=== PATIENT | female | born 1975 | race Caucasian/White ===

== ENCOUNTER 2017-04-15 11:33 | Emergency (ER) | payer BC, OTHER ==
[~2017-04-15] VITALS: Ht 162.6 cm; Wt 112.8 kg
[~2017-04-15 11:33] MED LIST: CLR10 PO; MULT-506 PO
[2017-04-15 11:36] VITALS: TEMP 37.4; Ht 162.6 cm; Wt 112.8 kg
--- NOTE | 2017-04-15 12:04 | EMERGENCY ROOM VISIT NOTE ---
History Report prepared by Maureen: Akanksha Munoz Under the Supervision of: Dr. Maryana Lord D.O. First contact with patient: 11:42 Chief Complaint: CARDIAC ASSESSMENT Stated Complaint: NAUSEA, RACING HEART, LIGHTHEADED Nursing Triage Summary: triage note; pt reports since waking nausea, chest pressure and elevated pulse 120 beats/min at home. 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 She notes that she has had chest pressure before, though the discomfort would resolve itself. She currently rates her pain a 2/10 in severity. She reports that she works from home and was working when she suddenly felt lightheaded and she noticed her pulse was over 100 bpm on her smart watch. She notes that she took a few deep breaths and her pulse resumed normal. She states that her pulse then increased to 120 bpm and she became lightheaded again. She notes nausea, sick contacts, abdominal pain, and lightheadedness. She denies any sharp abdominal pain, though mild distention. She notified her PCP and was advised to come to the ED. She has a family history of myocardial infarction. She tried eating a banana, though her abdominal pain did not subside. She notes her son has been sick. She has a history of anxiety and takes Zoloft regularly. She has a history of cholecystectomy. She notes baseline low blood pressure, though her blood pressure was higher than normal today. She notes consuming a whiskey sour , alcoholic drink last night. She notes normal bowel movements. She also states that she has been eating irregularly due to the holidays. She denies a history of GERD. 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 Review of Systems See HPI for pertinent positives & negatives. A total of 10 systems reviewed and were otherwise negative. Past Medical & Surgical Surgical Problems: (1) H/O bilateral breast reduction surgery (2) Hx of cholecystectomy Family History FH: myocardial infarction Social History Smoking Status: Never Smoker Marital Status: Occupation Status: employed Current/Historical Medications Scheduled Loratadine (Claritin), 10 MG PO DAILY Multivitamin (Multivitamin), 1 TAB PO DAILY Allergies Coded Allergies: No Known Allergies (Unverified , 04/15/17) Physical Exam Vital Signs Date Time Temp Pulse Resp B/P (MAP) Pulse Ox O2 Delivery O2 Flow Rate FiO2 04/15/17 15:50 87 16 155/83 99 Room Air 04/15/17 14:42 84 150/96 97 148/81 102 162/84 04/15/17 13:30 87 18 127/78 98 Room Air 04/15/17 12:21 93 04/15/17 11:51 Room Air 04/15/17 11:36 37.4 94 18 128/81 98 Room Air Physical Exam GENERAL: alert, anxious appearing, well nourished, no distress, non-toxic. Obese. EYE EXAM: normal conjunctiva, PERRL and EOM's grossly intact OROPHARYNX: no exudate, no erythema, lips, buccal mucosa, and tongue normal and mucous membranes are moist NECK: supple, no nuchal rigidity, no adenopathy, non-tender LUNGS: Clear to auscultation. Normal chest wall mechanics HEART: no murmurs, S1 normal and S2 normal CHEST. No reproducible chest pain. ABDOMEN: abdomen soft, non-tender, normo-active bowel sounds, no masses, no rebound or guarding. BACK: Back is symmetrical on inspection and there is no deformity, no midline tenderness, no CVA tenderness. SKIN: no rashes and no bruising UPPER EXTREMITIES: upper extremities are grossly normal. LOWER EXTREMITIES: No pitting edema. NEURO EXAM: Normal sensorium, cranial nerves II-XII grossly intact, normal speech, no gross weakness of arms, no gross weakness of legs. Medical Decision & Procedures ER Provider Diagnostic Interpretation: Radiology results have been interpreted by the radiologist and reviewed by me. CHEST ONE VIEW PORTABLE HISTORY: 42 years-old Female chest pain acute atypical chest pain with nausea COMPARISON: None available TECHNIQUE: Portable AP view of the chest FINDINGS: Cardiomediastinal and hilar silhouettes are within normal limits. No pneumothorax, pleural effusion, focal airspace consolidation or overt pulmonary edema. The bones of the chest appear grossly intact. IMPRESSION: No acute process. The above report was generated using voice recognition software. It may contain grammatical, syntax or spelling errors. Electronically signed by: Domenico Hernandez M.D. 04/15/2017 12:42 PM Dictated Date/Time: 04/15/2017 12:42 PM Laboratory Results 04/15/17 12:18 Red Blood Count 4.50, Mean Corpuscular Volume 87.3, Mean Corpuscular Hemoglobin 29.8, Mean Corpuscular Hemoglobin Concent 34.1, Mean Platelet Volume 10.0, Neutrophils (%) (Auto) 78.9, Lymphocytes (%) (Auto) 11.8, Monocytes (%) (Auto) 7.9, Eosinophils (%) (Auto) 1.1, Basophils (%) (Auto) 0.2, Neutrophils # (Auto) 7.75, Lymphocytes # (Auto) 1.16, Monocytes # (Auto) 0.78, Eosinophils # (Auto) 0.11, Basophils # (Auto) 0.02 04/15/17 12:18 Test 04/15/17 12:18 04/15/17 15:09 White Blood Count 9.83 K/uL (4.8-10.8) Red Blood Count 4.50 M/uL (4.2-5.4) Hemoglobin 13.4 g/dL (12.0-16.0) Hematocrit 39.3 % (37-47) Mean Corpuscular Volume 87.3 fL (80-100) Mean Corpuscular Hemoglobin 29.8 pg (25-34) Mean Corpuscular Hemoglobin Concent 34.1 g/dl (32-36) Platelet Count 276 K/uL (130-400) Mean Platelet Volume 10.0 fL (7.4-10.4) Neutrophils (%) (Auto) 78.9 % Lymphocytes (%) (Auto) 11.8 % Monocytes (%) (Auto) 7.9 % Eosinophils (%) (Auto) 1.1 % Basophils (%) (Auto) 0.2 % Neutrophils # (Auto) 7.75 K/uL (1.4-6.5) Lymphocytes # (Auto) 1.16 K/uL (1.2-3.4) Monocytes # (Auto) 0.78 K/uL (0.11-0.59) Eosinophils # (Auto) 0.11 K/uL (0-0.5) Basophils # (Auto) 0.02 K/uL (0-0.2) RDW Standard Deviation 43.2 fL (36.4-46.3) RDW Coefficient of Variation 13.6 % (11.5-14.5) Immature Granulocyte % (Auto) 0.1 % Immature Granulocyte # (Auto) 0.01 K/uL (0.00-0.02) Anion Gap 8.0 mmol/L (3-11) Est Creatinine Clear Calc Drug Dose 122.3 ml/min Estimated GFR () 116.9 Estimated GFR (Non- 100.9 BUN/Creatinine Ratio 17.2 (10-20) Calcium Level 8.7 mg/dl (8.5-10.1) Magnesium Level 2.1 mg/dl (1.8-2.4) Total Bilirubin 0.4 mg/dl (0.2-1) Aspartate Amino Transf (AST/SGOT) 18 U/L (15-37) Alanine Aminotransferase (ALT/SGPT) 24 U/L (12-78) Alkaline Phosphatase 94 U/L (45-117) Troponin I < 0.015 ng/ml (0-0.045) Total Protein 8.0 gm/dl (6.4-8.2) Albumin 3.5 gm/dl (3.4-5.0) Globulin 4.5 gm/dl (2.5-4.0) Albumin/Globulin Ratio 0.8 (0.9-2) Lipase 140 U/L (73-393) Bedside Troponin I < 0.030 ng/ml (0-0.045) Laboratory results per my review. Medications Administered Medications (Trade) Dose Ordered Sig/[place] Route Start Time Stop Time Status Last Admin Dose Admin Ondansetron HCl (Zofran Odt) 4 mg ONE ONCE PO 04/15/17 14:45 04/15/17 14:46 DC 04/15/17 14:41 4 MG ECG Indication: other (chest pressure) Rate (beats per minute): 100 Rhythm: sinus tachycardia Findings: no acute ischemic change, other (Normal axis, normal intervals. Baseline artifact noted. ) ED Course 1155: The patient was evaluated in room C7. A complete history and physical exam was performed. 1340: I reassessed the patient at this time. She is still nauseous. 1445: Ordered Zofran 4 mg PO 1500: I reassessed the patient at this time. She tolerated the PO and is feeling better and resting comfortably. 1526: I reassessed the patient at this time. She is feeling better and resting comfortably. I discussed the results and treatment plan with the patient. I answered all pertaining questions that she had. She expressed understanding and verbalized agreement. The patient will be discharged home. Medical Decision Prior records/ancillary studies reviewed. Triage Nursing notes reviewed. The patient's history was concerning for chest pain. Differential diagnosis: Etiologies such as cardiac ischemia, aortic dissection, pulmonary embolism, pneumonia, pneumothorax, musculoskeletal, infections, pericarditis, myocarditis , esophageal rupture, gastrointestinal, as well as others were entertained. HEART score 0 low risk Wells, PERC negative Pt well appearing here, very anxious. No risk factors for CAD, fam hx but not first degree relative. Doubt ACS, tamponade, effusion, PE, occult infectious etiology, pneumothorax, dissection or other vascular etiology. Patient's labs and imaging reassuring, vital signs stable, patient improved here during observation time and nausea medication. Patient tolerating by mouth, no recurrent lightheadedness with ambulation back and forth to the bathroom several times, orthostatics negative. Discussed with patient close follow-up with family doctor as a precaution, symptoms watch and return for, she verbalized understanding was agreeable with plan. Medication Reconcilliation Current Medication List: was personally reviewed by me Blood Pressure Screening Patient's blood pressure: Elevated blood pressure Blood pressure disposition: Elevated BP felt to be situational Impression Primary Impression: Chest pain Additional Impression: Nausea Scribe Attestation The scribe's documentation has been prepared under my direction and personally reviewed by me in its entirety. I confirm that the note above accurately reflects all work, treatment, procedures, and medical decision making performed by me. Departure Information Dispostion Home / Self-Care Referrals Fortino Plunektt M.D. (PCP) Forms IMPORTANT VISIT INFORMATION Patient Instructions Chest Pain - [facility], [facility] Additional Instructions Please follow up with your family doctor as a precaution. If you have any new or concerning symptoms, recurrent chest pain, trouble breathing, fevers, dizziness, passing out, you've any other new concerns, please return the emergency room. Problem Qualifiers Primary Impression: Chest pain Chest pain type: unspecified Qualified Codes: R07.9 - Chest pain, unspecified
[2017-04-15 12:38] LABS: BASO % 0.2 %; BASO ABS # 0.02 K/uL (0-0.2); COMPLETE YES; EOS % 1.1 %; HEMATOCRIT 39.3 % (37-47); IG% 0.1 %; LYMPH % 11.8 %; LYMPH ABS # 1.16 K/uL (1.2-3.4); MEAN CELL VOLUME 87.3 fL (80-100); MEAN CORPUSCULAR HEMOGLOBIN 29.8 pg (25-34); MEAN CORPUSCULAR HGB CONC 34.1 g/dl (32-36); MONO % 7.9 %; NEUT % 78.9 %; PLATELET COUNT 276 K/uL (130-400); WHITE BLOOD COUNT 9.83 K/uL (4.8-10.8)
--- NOTE | 2017-04-15 12:43 | DIAGNOSTIC IMAGING REPORT ---
CHEST ONE VIEW PORTABLE HISTORY: 42 years-old Female chest pain acute atypical chest pain with nausea COMPARISON: None available TECHNIQUE: Portable AP view of the chest FINDINGS: Cardiomediastinal and hilar silhouettes are within normal limits. No pneumothorax, pleural effusion, focal airspace consolidation or overt pulmonary edema. The bones of the chest appear grossly intact. IMPRESSION: No acute process. The above report was generated using voice recognition software. It may contain grammatical, syntax or spelling errors. Electronically signed by: Domenico Hernandez M.D. 04/15/2017 12:42 PM Dictated Date/Time: 04/15/2017 12:42 PM
[2017-04-15 12:58] LABS: ALT/SGPT 24 U/L (12-78); AST/SGOT 18 U/L (15-37); BLOOD UREA NITROGEN 13 mg/dl (7-18); BUN/CREATININE RATIO 17.2 (10-20); CALCIUM 8.7 mg/dl (8.5-10.1); CARBON DIOXIDE 22 mmol/L (21-32); CHLORIDE 104 mmol/L (98-107); CREATININE 0.73 mg/dl (0.60-1.20); GLUCOSE 103 mg/dl (70-99); MAGNESIUM 2.1 mg/dl (1.8-2.4); POTASSIUM 3.7 mmol/L (3.5-5.1); SODIUM 134 mmol/L (136-145)
[2017-04-15 13:03] LABS: ALB/GLOB RATIO 0.8 (0.9-2); ALKALINE PHOSPHATASE 94 U/L (45-117)
[2017-04-15] MEDS ORDERED: ONDANSETRON 4MG OD TAB PO ONE (14:45)
[2017-04-15 15:50] VITALS: BP 155/83; PULSE 87; O2SAT 99
== END 2017-04-15 15:54 | disposition home or self-care (01) ==
LOC: C.EDB 11:33 → C.EDC 15:54
DX: R07.9 Chest pain, unspecified (principal); R11.0 Nausea; F41.9 Anxiety disorder, unspecified; Z82.49 Family history of ischemic heart disease and other diseases of the circulatory system

== ENCOUNTER 2023-09-04 18:10 | Inpatient (IN) ==
--- OUTSIDE RECORDS SUMMARY | 2023-09-04 18:16 | External Medical Summary | Summary of Care ---
Author Name Unknown Organization [facility] Address [address] [place] [address] Phone [phone] Care Team Providers Care Exit Booth Agent Name Role Phone Fortino Plunkett MD Primary Care Provider + Reason for Visit * Reason Onset Date Comments Other 08/23/2023 Lab results Encounter Details Date Type Department Care Team (Late st Contact Info) Description 08/23/2023 Telephone [facility] [address] [place] [address] Humberto Pan MD [address] [place] [address] Other (Lab results ) Allergies Active Allergy Reactions Criticality Noted Date Comments Cat Dander Edema airway High 10/24/2012 Dog Dander Edema airway High 10/24/2012 Dust 10/24/2012 Nasal congestion Molds & Smuts 10/24/2012 Nasal congestion Pollen Extract 01/11/2022 Stuffy nose documented as of this encounter (statuses as of 08/23/2023) Medications Medication Sig Dispensed Refills Start Date End Date Status ibuprofen (MOTRIN) 200 MG Tablet Take 1 Tablet by mouth every 4 hours as needed for Pain. 0 Active albuterol-ipratropium (DUONEB) 2.5-0.5 MG/3ML nebulizer solutionIndications:M ild intermittent asthma without complication Inhale 3 mL via nebulizer 4 times a day. 25 Vial 0 05/04/2017 Active metroNIDAZOLE 1 % External Gel (METROGEL)Indications :Rosacea Apply topically to affected area 2 times a day. To affected area. 60 g 11 02/01/2020 Active Levocetirizine Dihydrochloride 5 MG Oral Tablet Take 1 tablet daily each evening to prevent allergy related symptoms 0 05/07/2021 Active Additional Information Patient taking differently: 5 mg Oral QPM-1999, Take 1 tablet daily each evening to prevent allergy related symptoms, Reported on 06/11/2022 Albuterol Sulfate HFA 108 (90 Base) MCG/ACT Inhalation Aerosol Solution Inhale 2 Puffs by mouth every 4 hours as needed for Cough, Shortness of Breath or Wheezing. 8.5 g 3 06/11/2022 Active Clindamycin Phosphate 1 % External GelIndications:Follic ulitis,Furunculosis Apply twice daily to areas in groin creases as per instructions on checkout sheet 60 g 2 08/23/2022 Active Doxycycline Monohydrate 100 MG Oral CapsuleIndications:Fo lliculitis,Furunculos is Take 1 capsule by mouth daily with or without food 60 Capsule 3 10/20/2022 Active Gabapentin 100 MG Oral Capsule (Neurontin) take 1 capsule by mouth at bedtime for 3 nights, if no relief for menopausal symptoms, may increase to 2 at bedtime 60 Capsule 11 12/22/2022 Active Multivitamin/Extra Vitamin D3 Oral Tablet Chewable Take 1 Tablet by mouth daily. 0 10/15/2022 Active Vitamin B-12 1000 MCG Oral Tablet (Cyanocobalamin) Take 1 Tablet by mouth in the morning. Please purchase without a prescription and take one daily. 100 Tablet 3 10/15/2022 Active Fluticasone-Salmetero l 500-50 MCG/ACT Inhalation Aerosol Powder Breath Activated (Advair Diskus)Indications:Se nely persistent asthma without complication INHALE ONE PUFF BY MOUTH TWICE A DAY 60 Each 5 02/01/2023 4 Active Montelukast Sodium 10 MG Oral Tablet (Singulair)Indication s:Mild intermittent asthma without complication,Allergic rhinitis due to animal hair and dander TAKE 1 TABLET BY MOUTH AT BEDTIME. 90 Tablet 3 02/23/2023 4 Active Esomeprazole Magnesium 20 MG Oral Capsule Delayed Release (NexIUM 24HR Clear Minis) Take 1 Capsule by mouth daily before breakfast. 0 Active Wegovy 0.25 MG/0.5ML Subcutaneous Solution Auto-injector (Semaglutide-Weight Management)Indication s:Morbid obesity due to excess calories (HCC) Inject 0.25 mg under the skin once a week. 2 mL 0 03/28/2023 Active Additional Information Patient not taking.Reported on 08/08/2023 Zepbound 2.5 MG/0.5ML Subcutaneous Solution Auto-injector (Tirzepatide-Weight Management)Indication s:Morbid obesity due to excess calories (HCC) Inject 2.5 mg under the skin once a week. 2 mL 1 04/21/2023 Active Additional Information Patient not taking.Reported on 08/08/2023 Spiriva Respimat 2.5 MCG/ACT Inhalation Aerosol Solution (Tiotropium [place] Monohydrate) Inhale by mouth 2 Puffs in the morning. 12 g 3 05/04/2023 Active Amoxicillin-Pot Clavulanate 875-125 MG Oral Tablet (Augmentin)Indication s:Acute sinusitis, recurrence not specified, unspecified location Take 1 Tablet by mouth in the morning and 1 Tablet before bedtime. Do all this for 10 days. 20 Tablet 0 08/20/2023 4 Active predniSONE 10 MG Oral Tablet (Deltasone)Indication s:Acute sinusitis, recurrence not specified, unspecified location Take 5 tabs for 2 days, 4 tabs for 2 days, 3 tabs for 2 days, 2 tabs for 2 days 1 tab for 2 days 30 Tablet 0 08/20/2023 Active Vitamin D 50 MCG (2000 UT) Oral Tablet Take 1 daily in addition to multivitamin for a total daily dose of 3000 units per day 100 Tablet 11 08/23/2023 Active documented as of this encounter (statuses as of 08/23/2023) Active Problems Problem Noted Date Diagnosed Date Left-sided chest pain 12/09/2022 Skin pustule 06/11/2022 BRAD (generalized anxiety disorder) 03/11/2022 Perimenopausal 09/08/2021 Night sweats 09/08/2021 Laryngopharyngeal reflux (LPR) 05/08/2021 Severe persistent asthma without complication Food sensitivity with gastrointestinal symptoms 04/28/2021 Papular eczema 04/28/2021 Body mass index (BMI) of 40.0 to 44.9 in adult 0 09/02/2020 Overview: Per Obesity protocol OAB (overactive bladder) 01/29/2018 Morbid obesity due to excess calories 01/29/2018 DIEGO (stress urinary incontinence, female) 2017 Obesity, Class II, BMI 35-39.9, isolated (see ac tual BMI) 01/24/2017 Overview: Per Obesity protocol #1 PMDD (premenstrual dysphoric disorder) 6 Family history of breast cancer in mother 2012 Routine general medical exam ination at a health care facility 12/03/2011 Overview: 09/07 breast consult: consider tamoxifen, screen w/MRI + mammo 08/08 breast bx- benign. Planning breast reduction NEED morteza 6mo. Genetic screen Negative. 03/06 mammo no change. Morteza 1 Y 09/03 mammo in [place]--likely benign w/minor asym & few calc. US slight dilated ducts on left. Hx galactorrhea. Considering reduction mammoplasty Hx abnormal paps. Last couple WNL 08/04 TC 222, LDL 153, TG 155, HDL 42. CRP1, TSH WNL Gluc 80, Celiac and Vit D WNL Allergic rhinitis 12/03/2011 Liver hemangioma S/P cholecystectomy S/P bilateral breast reduction documented as of this encounter (statuses as of 08/23/2023) Resolved Problems Problem Noted Date Diagnosed Date Resolved Date Situational anxiety 06/09/2021 12/10/19 23 Mild persistent asthma without complication 05/08/2021 06/09/2021 Hypersomnia, periodic 01/26/20182017 Screening for lipid disorders 01/20/2018 12/09/2022 Urinary frequency 11/25/2017 04/03/2018 Urge incontinence of urine 11/11/2017 1 06/04/2017 Feeling of incomplete bladder emptying 11/11/2017 04/03/2018 Obesity, Class II, BMI 35-39 .9, isolated (see actual BMI) 12/03/2011 01/27/2017 Overview: Per Obesity protocol #1 Vitamin D deficiency 12/03/2011 018 Mild intermittent asthma without complication 12/03/19 12 03/26/2021 Overview: 04/07 PFT WNL. Reports having PCV23 documented as of this encounter (statuses as of 08/23/2023) Immunizations Name Administration Dates Next Due COVID-19 mRNA, LNP-s, No Pre serve, 2-Dose Series (Moderna) 07/08/2020,06/10/2020 COVID-19, mRNA, LNP-s, PF, B ooster, 100mcg/0.5mg (Moderna) 04/07/2021 Covid-19, Mrna, Lnp-s, Pf, B ivalent, 30 Mcg, IM, 12 yrs and above (Pfizer) 06/08/2022 Pneumococcal Polysaccharide PPV23 (Pneumovax) 08/23/2014 Seasonal Influenza, PF, 6 M & above, IM , (FluLaval or Fluzone) 2023,03/11/2022,02/03/2021,01/31,01/29/2019,02/13/2018 Seasonal Influenza, Quadriva lent, No Preserve, IM 01/10/2017,04/01/2016 Seasonal Influenza, Split, I IV3, With Preserve, Inj 01/28/2014 TDAP (age 10 and older)(Boostrix) 08/06/2013 documented as of this encounter Social History Tobacco Use Types Packs/Day Years Used Date Smoking Tobacco: Never Smokeless Tobacco: Never Comments:No passive smoke ex posures Alcohol Use Standard Drinks/Week Comments Yes 0 (1 standard drink = 0.6 oz pur e alcohol) occasional PHQ-2 Answer Date Recorded PHQ Adult Total Score 0 02/15/2023 Hunger Vital Sign Answer Date Recorded Within the past 12 months, y ou worried that your food would run out before you got the money to buy more. Never true 12/09/19 23 Within the past 12 months, t he food you bought just didn't last and you didn't have money to get more. Never true 12/08/2022 Sex and Gender Information Value Date Recorded Sex Assigned at Female 08/21/2018 11:39 AM EDT Gender Identity Female 08/21/2018 11:39 AM EDT Sexual Orientation Straight 08/21/2018 11 :39 AM EDT Job Start Date Occupation Industry Not on file Not on file Not on file documented as of this encounter Miscellaneous Notes * Telephone Encounter - Humberto Pan MD - 08/23/2023 12:59 PM EDT Please call pt - the blood counts all look good. The EBV IgG antibody was positive - this indicatesthat she has had EBV in the past (but could have been years ago). The IgM antibody - which will help determine if her current symptoms relate to EBV is pending. I will be in touch with this result when it returns. No changes for now.. * Telephone Encounter - Rosita Barker OSA - 08/23/2023 10:57 AM EDT Patient calling in to check on the status of previous message. Patient Called within 48 hour timeframe. Reminded patient of 48 hour turn-around time. States she can see a positive result, asking for assistance. 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 [address] [place] [id number] Lita Borges PA-C [address] [place] [id number] 01/02/2024 8:30 AM EDT Telemedicine [facility] [place] [address] [place] [address] April Marinelli PA-C [address] [place] [address] Pending Results Name Type Priority Associated Diagnoses Date /Time EBV VIRAL CAPSID ANTIGEN IGM ANTIBODY Lab Routine Malaise and fatigue 08/22/2023 11:56 AM EDT Scheduled Orders Name Type Priority Associated Diagnoses Orde r Schedule EBV VIRAL CAPSID ANTIGEN IGM ANTIBODY Lab Routine Malaise and fatigue Expected: 08/23/2023 (Approximate), Expires: 08/22/2024 Scheduled Procedures Name Priority Associated Diagnoses Date/Ti me COLONOSCOPY FLEXIBLE PROXIMAL DIAGNOSTIC Recall Screen for colon cancer Health Maintenance Due Date Last Done Comments Hepatitis C Screening 1992 Hepatitis B (1 of 3 - 19+ 3-dose series) 1993 Pneumococcal Vaccine: Pediatrics (0 to 5 Years) and At-Risk Patients (6 to 64 Years) (2 of 2 - PCV) 08/24/2015 08/23/2014 Cologuard 2019 Fecal Occult Blood Test 2019 Sigmoidoscopy 2019 COVID-19 Vaccine ( season) 2022 06/08/2022, 04/07/2021, 07/08/2020, Additional history exists DTaP,Tdap,and Td Vaccines (2 - Td or Tdap) 08/07/2023 08/06/2013 Mammogram 03/25/2024 03/25/2023, 02/23, 03/02/2022, Additional history exists Diabetes Screening 10/14/2025 10/14/2022, 0 10/14/2022, 09/11/2021, Additional history exists Pap Smear 02/15/2026 02/15/2023, 10/2018, 01/29/2019, Additional history exists Lipid Panel 09/11/2026 09/11/2021, 12/2019, 07/13/2014 Cervical Cancer Screening 02/16/2028 HPV/Co-Test 02/16/2028 02/15/2023 Colonoscopy 01/15/2032 01/14/2022, 01/14/2022 Colorectal Cancer Screening 01/15/2032 Influenza Vaccine (FLU shot) Completed 03/2023, 03/11/2022, 02/03/2021, Additional history exists GARDASIL-HPV IMMUNIZATION SERIES Aged Out No longer eligible based on patient's age to complete this topic MENINGOCOCCAL (MENACTRA/MENVEO) Aged Out No longer eligible based on patient's age to complete this topic documented as of this encounter Medical Devices Not on filedocumented as of this encounter Visit Diagnoses Diagnosis Malaise and fatigue- Primary Other malaise and fatigue documented in this encounter Advance Directives Latest Code Status on File Code Status Date Activated Date Inactivated Comments Full Code 01/06/2016 2:38 PM 01/07/2016 1:40 PM This order reflects the patients wishes and were consensually agreed upon. Question Answer Comments Discussion of Advance Directives occurred with: Not Discussed Care Teams Exit Booth Agent Relationship Specialty Start Date End Date Fortino Plunkett MD [address] [id number] PCP - General Family Medicine 04/17/14 documented as of this encounter
--- OUTSIDE RECORDS SUMMARY | 2023-09-04 18:16 | External Medical Summary | Summary of Care ---
Author Name Unknown Organization [facility] Address [address] [place] [address] Phone [phone] Care Team Providers Care Radar Scientist Name Role Phone Fortino Plunkett MD Primary Care Provider + Reason for Visit * Reason Onset Date Comments Other 08/23/2023 Lab results Encounter Details Date Type Department Care Team (Late st Contact Info) Description 08/23/2023 Telephone [facility] [address] [place] [address] Humberto Pan MD [address] [place] [address] Other (Lab results ) Allergies Active Allergy Reactions Criticality Noted Date Comments Cat Dander Edema airway High 10/24/2012 Dog Dander Edema airway High 10/24/2012 Dust 10/24/2012 Nasal congestion Molds & Smuts 10/24/2012 Nasal congestion Pollen Extract 01/11/2022 Stuffy nose documented as of this encounter (statuses as of 08/24/2023) Medications Medication Sig Dispensed Refills Start Date [...] Respimat 2.5 MCG/ACT Inhalation Aerosol Solution (Tiotropium [place] Monohydrate) Inhale by mouth 2 Puffs in [...] as of this encounter (statuses as of 08/24/2023) Active Problems Problem Noted Date Diagnosed Date [...] as of this encounter (statuses as of 08/24/2023) Resolved Problems Problem Noted Date Diagnosed Date [...] as of this encounter (statuses as of 08/24/2023) Immunizations Name Administration Dates Next Due COVID-19 [...] results - please call pt back at [phone] Thank you, Nicole Layne CPhT II Pipe Testing Technician [facility] ([facility]PS) (Formerly Telepharmacy) 08/23/2023, 10:09 AM documented in this encounter Plan of Treatment Upcoming Encounters Date Type Department Care Team (Late st Contact Info) Description 09/14/2023 11:00 AM EDT Office Visit Nutrition & Weight Management, [facility] [address] [place] [address] Lita Borges PA-C [address] [place] [address] 01/02/2024 8:30 AM EDT Telemedicine [facility], [place] [address] [place] [address] April Marinelli PA-C [address] [place] [address] Scheduled Procedures Name Priority Associated Diagnoses Date/Ti [...] Additional history exists Lipid Panel 09/11/2026 09/11/2021, 100 12/2019, 07/13/2014 Cervical Cancer Screening 02/16/2028 HPV/Co-Test [...] Not on filedocumented as of this encounter Results * EBV VIRAL CAPSID ANTIGEN IGM ANTIBODY (08/22/2023 11:56 AM EDT) Tod-Chow Virus Viral Capsid IgM Antibody Negative Negative 08/24/2023 9:07 AM EDT LABORATORY [facility] Blood Venous blood specimen / Unknown Venipuncture / Unknown 08/22/2023 11:56 AM EDT 08/22/2023 11:56 AM EDT Humberto Pan MD LAB BLOOD ORDERABL ES LABORATORY [facility] [address] [place] [facility] [place] [address] documented in this encounter Visit Diagnoses Diagnosis Malaise and fatigue- Primary Other malaise and fatigue documented in this encounter Advance Directives Latest Code Status on File Code Status Date Activated Date Inactivated Comments Full Code 01/06/2016 2:38 PM 01/07/2016 1:40 PM This order reflects the patients wishes and were consensually agreed upon. Question Answer Comments Discussion of Advance Directives occurred with: Not Discussed Care Teams Radar Scientist Relationship Specialty Start Date End Date Fortino Plunkett MD [address] [address] PCP - General Family Medicine 04/17/14 documented as of this encounter
--- OUTSIDE RECORDS SUMMARY | 2023-09-04 18:16 | External Medical Summary | Summary of Care ---
Author Name Unknown Organization [facility] Address [address] [place] [address] Phone [phone] Care Team Providers Care Advertising Representative Name Role Phone Fortino Plunkett MD Primary Care Provider + Reason for Visit * Reason Onset Date Comments Other 08/23/2023 Lab results Encounter Details Date Type Department Care Team (Late st Contact Info) Description 08/23/2023 Telephone [facility] [address] [place] [address] Humberto Pan MD [address] [place] [address] Other (Lab results ) Allergies [...] Respimat 2.5 MCG/ACT Inhalation Aerosol Solution (Tiotropium [place] Monohydrate) Inhale by mouth 2 Puffs in [...] results - please call pt back at [phone] Thank you, Nicole Layne CPhT II Polo Coach [facility] ([facility]PS) (Formerly Telepharmacy) 08/23/2023, 10:09 AM documented in this encounter Plan of Treatment Upcoming Encounters Date Type Department Care Team (Late st Contact Info) Description 09/14/2023 11:00 AM EDT Office Visit Nutrition & Weight Management, [facility] [address] [place] [address] Lita Borges PA-C [address] [place] [phone] 01/02/2024 8:30 AM EDT Telemedicine [facility], [place] [address] [place] [address] April Marinelli PA-C [address] [place] [address] Scheduled Procedures Name Priority Associated Diagnoses Date/Ti [...] LABORATORY [facility] [address] [place] [facility] [address] documented in this encounter Visit Diagnoses Diagnosis [...] Directives occurred with: Not Discussed Care Teams Advertising Representative Relationship Specialty Start Date End Date Fortino Plunkett MD [address] [address] PCP - General Family Medicine 04/17/14 documented as of this encounter
--- OUTSIDE RECORDS SUMMARY | 2023-09-04 18:16 | External Medical Summary | Summary of Care ---
Author Name Unknown Organization [facility] Address [address] [place] [address] Phone [phone] Care Team Providers Care Blueprint Machine Operator Name Role Phone Fortino Plunkett MD Primary Care Provider + Reason for Visit * Reason Onset Date Comments Other 08/23/2023 Encounter Details Date Type Department Care Team (Late st Contact Info) Description 08/23/2023 Telephone Family Practice [facility] [address] [place] [address] Fortino Plunkett MD [address] [facility] [place] [phone] Other Allergies Active Allergy Reactions Criticality Noted Date [...] by mouth daily. 0 10/15/2022 Active Vitamin D (Cholecalciferol) 25 MCG (1000 UT) Oral Tablet Take 1 Tablet by mouth in the morning. With multivit with vit D for total daily dose of 2000 units vit D per day. 100 Tablet 11 12/22/2022 Active Vitamin B-12 1000 MCG Oral Tablet [...] Respimat 2.5 MCG/ACT Inhalation Aerosol Solution (Tiotropium [place] Monohydrate) Inhale by mouth 2 Puffs in [...] 2 days 30 Tablet 0 08/20/2023 Active documented as of this encounter (statuses [...] encounter Miscellaneous Notes * Telephone Encounter - Nicole Layne CPhT - 08/23/2023 9:59 AM EDT Error Thank you, Nicole Layne CPhT II Conference Reservationist [facility] ([facility]PS) (Formerly Telepharmacy) 08/23/2023, 10:08 AM documented in this encounter Plan of Treatment Upcoming Encounters Date Type Department Care Team (Late st Contact Info) Description 09/14/2023 11:00 AM EDT Office Visit Nutrition & Weight Management, [facility] [place] [address] Lita Borges PA-C [address] [facility] [place] [address] 01/02/2024 8:30 AM EDT Telemedicine Endocrinology, [place] [address], [place] [phone] April Marinelli PA-C [address], [place] [phone] Scheduled Procedures Name Priority Associated Diagnoses Date/Ti [...] Additional history exists Pap Smear 02/15/2026 02/15/2023, 100 10/2018, 01/29/2019, Additional history exists Lipid Panel 09/11/2026 09/11/2021, 10/0 12/2019, 07/13/2014 Cervical Cancer Screening 02/16/2028 HPV/Co-Test [...] Not on filedocumented as of this encounter Advance Directives Latest Code Status on File Code Status Date Activated Date Inactivated Comments Full Code 01/06/2016 2:38 PM 01/07/2016 1:40 PM This order reflects the patients wishes and were consensually agreed upon. Question Answer Comments Discussion of Advance Directives occurred with: Not Discussed Care Teams Blueprint Machine Operator Relationship Specialty Start Date End Date Fortino Plunkett MD [address] [place] [address] PCP - General Family Medicine 04/17/14 documented as of this encounter
--- OUTSIDE RECORDS SUMMARY | 2023-09-04 18:16 | External Medical Summary | Summary of Care ---
Author Name Unknown Organization [facility] Address [address] [place] [address] Phone [phone] Care Team Providers Care Daytime Babysitter Name Role Phone Fortino Plunkett MD Primary Care Provider + Reason for Visit * Reason Comments Outpatient Testing Encounter Details Date Type Department Care Team (Late st Contact Info) Description 08/22/2023 12:20 PM EDT Laboratory Laboratory, [facility] [address] [facility] [place] [phone] [facility] [address] [facility] [place] [address] Vitamin D deficiency; Malaise and fatigue Allergies Active Allergy Reactions Criticality Noted Date [...] Information Patient taking differently: 5 mg Oral QPM-2000, Take 1 tablet daily each evening to [...] TWICE A DAY 60 Each 5 02/01/2023 10/09/202 4 Active Montelukast Sodium 10 MG Oral [...] Respimat 2.5 MCG/ACT Inhalation Aerosol Solution (Tiotropium [place] Monohydrate) Inhale by mouth 2 Puffs in [...] change. Morteza 1 Y 09/03 mammo in [place]--likely benign w/minor asym & few calc. US [...] as of this encounter Miscellaneous Notes * Result Encounter Note - April Marinelli PA-C - 08/23/2023 10:33 AM EDT Pt notified via phone or WebKitet message encounter. Trinity Marinelli PA-C [facility] documented in this encounter Plan of Treatment Upcoming Encounters Date Type Department Care Team (Late st Contact Info) Description 09/14/2023 11:00 AM EDT Office Visit Nutrition & Weight Management, [facility] [address] [facility] [place] [address] Lita Borges PA-C [address] [place] [address] 01/02/2024 8:30 AM EDT Telemedicine Endocrinology, [place] [address] [place] [address] April Marinelli PA-C [address] [place] [address] Scheduled Procedures Name Priority Associated Diagnoses Date/Ti [...] Additional history exists Pap Smear 02/15/2026 02/15/2023, 0 10/2018, 01/29/2019, Additional history exists Lipid Panel [...] Not on filedocumented as of this encounter Procedures Procedure Name Priority Date/Time Associated Diagnosis Comments DIFFERENTIAL, AUTOMATED Routine 08/22/2023 11:56 AM EDT Malaise and fatigue 25-HYDROXY VITAMIN D Routine 08/22/2023 11:56 AM EDT Vitamin D deficiency EBV VIRAL CAPSID ANTIGEN IGG ANTIBODY Routine 08/22/2023 11:56 AM EDT Malaise and fatigue CBC Routine 08/22/2023 11:56 AM EDT Malaise and fatigue CBC Routine 08/22/2023 11:56 AM EDT Malaise and fatigue documented in this encounter Results * DIFFERENTIAL, AUTOMATED (08/22/2023 11:56 AM EDT) WBC 10.58 4.00 - 10.80 K/uL 08/22/2023 12:10 PM EDT LAB[facility] [place] [facility]10 Neutrophils % 60.9 40.0 - 75.0 % 08/22/2023 12:10 PM EDT LAB[facility] [place] [facility]10 Lymphocytes % 28.8 18.0 - 42.0 % 08/22/2023 12:10 PM EDT LAB[facility] [place] [facility] Monocytes % 8.1 1.0 - 11.0 % 08/22/2023 12:10 PM EDT [facility] [place] [facility]10 Eosinophils % 1.9 0.0 - 6.0 % 08/22/2023 12:10 PM EDT LAB[facility] [place] [facility]10 Basophils % 0.3 0.0 - 2.0 % 08/22/2023 12:10 PM EDT LAB[facility] [place] [facility]10 Absolute Neutrophils 6.44 1.80 - 7.70 K/uL 08/22/2023 12:10 PM EDT [facility] [place] [facility]10 Absolute Lymphocytes 3.05 1.00 - 4.80 K/ul 08/22/2023 12:10 PM EDT LAB[facility] [place] [facility] Absolute Monocytes 0.86 0.00 - 1.10 K/uL 08/22/2023 12:10 PM EDT [facility] [place] [facility]10 Absolute Eosinophils 0.20 0.00 - 0.70 K/uL 08/22/2023 12:10 PM EDT [facility] [place] [facility] Absolute Basophils 0.03 0.00 - 0.20 K/uL 08/22/2023 12:10 PM EDT [facility] [place] [facility]10 Blood Venous blood specimen / Unknown Venipuncture / Unknown 08/22/2023 11:56 AM EDT 08/22/2023 11:56 AM EDT Humberto Pan MD LAB BLOOD ORDERABL ES LAB[facility] [place] [facility] [address] [place] [address] * CBC (08/22/2023 11:56 AM EDT) WBC 10.58 4.00 - 10.80 K/uL 08/22/2023 12:10 PM EDT LAB[facility] [place] [facility]10 RBC 4.67 3.85 - 5.15 M/uL 08/22/2023 12:10 PM EDT LAB[facility] [place] [facility]10 HGB 13.3 12.0 - 15.3 g/dL 08/22/2023 12:10 PM EDT [facility] [place] [facility]10 HCT 41.5 36.0 - 45.2 % 08/22/2023 12:10 PM EDT [facility] [place] [facility] MCV 88.9 81.5 - 97.5 fL 08/22/2023 12:10 PM EDT [facility] [place] [facility] MCH 28.5 27.0 - 34.0 pg 08/22/2023 12:10 PM EDT [facility] [place] [facility]10 MCHC 32.0 32.0 - 36.0 g/dL 08/22/2023 12:10 PM EDT [facility] [place] [facility] RDW 14.6 11.5 - 15.5 % 08/22/2023 12:10 PM EDT [facility] [place] [facility]10 PLT 291 140 - 400 K/uL 08/22/2023 12:10 PM EDT [facility] [place] [facility] MPV 10.0 6.6 - 11.1 fL 08/22/2023 12:10 PM EDT [facility] [place] [facility]10 Blood Venous blood specimen / Unknown Venipuncture / Unknown 08/22/2023 11:56 AM EDT 08/22/2023 11:56 AM EDT Humberto Pan MD LAB BLOOD ORDERABL ES LABORATORY [facility] [address] [address] * (ABNORMAL) EBV VIRAL CAPSID ANTIGEN IGG ANTIBODY (08/22/2023 11:56 AM EDT) Tod-Chow Virus Viral Capsid IgG Antibody Positive(A ) Negative 08/23/2023 9:08 AM EDT [facility] [place] Venous blood specimen / Unknown Venipuncture / Unknown 08/22/2023 11:56 AM EDT 08/22/2023 11:56 AM EDT Humberto Pan MD LAB BLOOD ORDERABL ES Performing Organization Address [facility] de Phone Number [facility]AT[facility] [address] [place] [address] * 25-HYDROXY VITAMIN D (08/22/2023 11:56 AM EDT) 25-Hydroxy Vitamin D 22 >19 ng/mL 08/22/2023 8:06 PM EDT [facility] Blood Venous blood specimen / Unknown Venipuncture / Unknown 08/22/2023 11:56 AM EDT 08/22/2023 11:56 AM EDT Narrative [facility] - 08/22/2023 8:06 PM EDT Deficient: <20 ng/mL Insufficient: 20-29 ng/mL Recommended/Optimum:30-50 ng/mL Vitamin D intoxication is rare. If suspicious of Vitamin D toxicity, evaluation of serum Calcium and PTH is recommended. April Marinelli PA-C LAB BLOOD ORDERA BLES Performing Organization Address [facility] de Phone Number LABORATORY [facility] [address] [place] [address] documented in this encounter Visit Diagnoses Diagnosis Vitamin D deficiency Unspecified vitamin D deficiency Malaise and fatigue Other malaise and fatigue documented in this encounter Advance Directives Latest Code Status on File Code Status Date Activated Date Inactivated Comments Full Code 01/06/2016 2:38 PM 01/07/2016 1:40 PM This order reflects the patients wishes and were consensually agreed upon. Question Answer Comments Discussion of Advance Directives occurred with: Not Discussed Care Teams Daytime Babysitter Relationship Specialty Start Date End Date Fortino Plunkett MD [address] [place] [address] PCP - General Family Medicine 04/17/14 documented as of this encounter
--- OUTSIDE RECORDS SUMMARY | 2023-09-04 18:16 | External Medical Summary | Summary of Care ---
Author Name Unknown Organization [facility] Address [address] [place] [address] Phone [phone] Care Team Providers Care Post Secondary Professional Name Role Phone Fortino Plunkett MD Primary Care Provider + Reason for Visit * Reason Onset Date Comments Other 08/23/2023 Lab results Encounter Details Date Type Department Care Team (Late st Contact Info) Description 08/23/2023 Telephone [facility] [address] [place] [address] Humberto Pan MD [address] [place] [address] Other (Lab results ) Allergies [...] Respimat 2.5 MCG/ACT Inhalation Aerosol Solution (Tiotropium [place] Monohydrate) Inhale by mouth 2 Puffs in [...] results - please call pt back at [phone] Thank you, Nicole Layne CPhT II Caterpillar Operator Centralized Clinical Pharmacy Services (CCPS) (Formerly Telepharmacy) 08/23/2023, 10:09 AM documented in this encounter Plan of Treatment Upcoming Encounters Date Type Department Care Team (Late st Contact Info) Description 09/14/2023 11:00 AM EDT Office Visit Nutrition & Weight Management, [facility] [address] [place] [address] Lita Borges PA-C [address] [place] [address] 01/02/2024 8:[address] [facility], [place] [address] [place] [address] April Marinelli PA-C [address] [place] [address] Pending Results Name Type Priority Associated Diagnoses [...] Directives occurred with: Not Discussed Care Teams Post Secondary Professional Relationship Specialty Start Date End Date Fortino Plunkett MD [address] [place] [address] PCP - General Family Medicine 04/17/14 documented as of this encounter
--- OUTSIDE RECORDS SUMMARY | 2023-09-04 18:16 | External Medical Summary | Summary of Care ---
Author Name Unknown Organization [facility] Address [address] [place] [address] Phone [phone] Care Team Providers Care Biological Sciences Professor Name Role Phone Fortino Plunkett MD Primary Care Provider + Reason for Visit * Reason Onset Date Comments Other 08/23/2023 Encounter Details Date Type Department Care Team (Late st Contact Info) Description 08/23/2023 Telephone Family Practice [facility] [address] [place] [address] Fortino Plunkett MD [address] [facility] [place] [phone] Other Allergies Active Allergy Reactions Criticality Noted [...] Respimat 2.5 MCG/ACT Inhalation Aerosol Solution (Tiotropium [place] Monohydrate) Inhale by mouth 2 Puffs in [...] Error Thank you, Nicole Layne CPhT II Patient Consumer Marketer [facility]ized [facility] Pharm[facility] Services ([facility]PS) (Formerly Telepharmacy) 08/23/2023, 10:08 AM documented in this encounter Plan of Treatment Upcoming Encounters Date Type Department Care Team (Late st Contact Info) Description 09/14/2023 11:00 AM EDT Office Visit Nutrition & Weight Management, [facility] [place] [address] Lita Borges PA-C [facility] [place] [address] 01/02/2024 8:30 AM EDT Telemedicine Endocrinology, [place] [address] [place], [place] [phone] April Marinelli PA-C [address] [place], [place] [phone] Scheduled Procedures Name Priority Associated Diagnoses Date/Ti [...] Directives occurred with: Not Discussed Care Teams Biological Sciences Professor Relationship Specialty Start Date End Date Fortino Plunkett MD [address] [place] [address] PCP - General Family Medicine 04/17/14 documented as of this encounter
--- OUTSIDE RECORDS SUMMARY | 2023-09-04 18:17 | External Medical Summary | Summary of Care ---
Author Name Unknown Organization [facility] Address [address] [place] [address] Phone [phone] Care Team Providers Care Window Repairer Name Role Phone Fortino Plunkett MD Primary Care Provider + Reason for Visit * Reason Onset Date Comments Precert Denied 04/26/2023 Zepbound Encounter Details Date Type Department Care Team (Late st Contact Info) Description 04/26/2023 Telephone Nutrition & Weight Management, [facility] [address] [facility] [place] [phone] Lita Borges PA-C 132 [facility] [place] [phone] Precert Denied (Zepbound) Allergies Active Allergy Reactions Criticality Noted Date Comments Cat Dander Edema airway High 10/24/2012 Dog Dander Edema airway High 10/24/2012 Dust 10/24/2012 Nasal congestion Molds & Smuts 10/24/2012 Nasal congestion Pollen Extract 01/11/2022 Stuffy nose documented as of this encounter (statuses as of 07/25/2023) Medications Medication Sig Dispensed Refills Start Date End Date Status ibuprofen (MOTRIN) 200 MG Tablet Take 1 Tablet by mouth every 4 hours as needed for Pain. 0 Active albuterol-ipratropiu m (DUONEB) 2.5-0.5 MG/3ML nebulizer solutionIndications: Mild intermittent asthma without complication Inhale 3 mL via nebulizer 4 times a day. 25 Vial 0 8 Active metroNIDAZOLE 1 % External Gel (METROGEL)Indication s:Rosacea Apply topically to affected area 2 times a day. To affected area. 60 g 11 0 Active Levocetirizine Dihydrochloride 5 MG Oral Tablet Take 1 tablet daily each evening to prevent allergy related symptoms 0 2 Active Additional Information Patient taking differently: 5 mg Oral QPM-1999, Take 1 tablet daily each evening to prevent allergy related symptoms, Reported on 06/11/2022 Albuterol Sulfate HFA 108 (90 Base) MCG/ACT Inhalation Aerosol Solution Inhale 2 Puffs by mouth every 4 hours as needed for Cough, Shortness of Breath or Wheezing. 8.5 g 3 3 Active Clindamycin Phosphate 1 % External GelIndications:Folli culitis,Furunculosis Apply twice daily to areas in groin creases as per instructions on checkout sheet 60 g 2 3 Active Doxycycline Monohydrate 100 MG Oral CapsuleIndications:F olliculitis,Furuncul osis Take 1 capsule by mouth daily with or without food 60 Capsule 3 3 Active Additional Information Patient not taking.Reported on 03/21/2023 Gabapentin 100 MG Oral Capsule (Neurontin) take 1 capsule by mouth at bedtime for 3 nights, if no relief for menopausal symptoms, may increase to 2 at bedtime 60 Capsule 11 3 Active Multivitamin/Extra Vitamin D3 Oral Tablet Chewable Take 1 Tablet by mouth daily. 0 3 Active Vitamin D (Cholecalciferol) 25 MCG (1000 UT) Oral Tablet Take 1 Tablet by mouth in the morning. With multivit with vit D for total daily dose of 2000 units vit D per day. 100 Tablet 11 3 Active Vitamin B-12 1000 MCG Oral Tablet (Cyanocobalamin) Take 1 Tablet by mouth in the morning. Please purchase without a prescription and take one daily. 100 Tablet 3 3 Active Fluticasone-Salmeter ol 500-50 MCG/ACT Inhalation Aerosol Powder Breath Activated (Advair Diskus)Indications:S evere persistent asthma without complication INHALE ONE PUFF BY MOUTH TWICE A DAY 60 Each 5 3 02/01/20 24 Active Montelukast Sodium 10 MG Oral Tablet (Singulair)Indicatio ns:Mild intermittent asthma without complication,Allergi c rhinitis due to animal hair and dander TAKE 1 TABLET BY MOUTH AT BEDTIME. 90 Tablet 3 3 02/23/20 24 Active Esomeprazole Magnesium 20 MG Oral Capsule Delayed Release (NexIUM 24HR Clear Minis) Take 1 Capsule by mouth daily before breakfast. 0 Active Benzonatate 100 MG Oral CapsuleIndications:S ubacute cough Take 1 Capsule by mouth 3 times a day as needed for Cough. 50 Capsule 0 3 Active Wegovy 0.25 MG/0.5ML Subcutaneous Solution Auto-injector (Semaglutide-Weight Management)Indicatio ns:Morbid obesity due to excess calories (HCC) Inject 0.25 mg under the skin once a week. 2 mL 0 3 Active predniSONE 10 MG Oral Tablet (Deltasone)Indicatio ns:Exacerbation of asthma, unspecified asthma severity, unspecified whether persistent Take 5 tablets by mouth for 2 days, 4 tabs for 2 days, 3 tabs for 2 days, 2 tabs for 2 days 1 tab for 2 days 30 Tablet 0 3 Active Zepbound 2.5 MG/0.5ML Subcutaneous Solution Auto-injector (Tirzepatide-Weight Management)Indicatio ns:Morbid obesity due to excess calories (HCC) Inject 2.5 mg under the skin once a week. 2 mL 1 3 Active Spiriva Respimat 2.5 MCG/ACT Inhalation Aerosol Solution (Tiotropium [place] Monohydrate) Inhale by mouth 2 Puffs in the morning. 12 g 3 2 05/04/19 24 Discontinu ed(Refill) documented as of this encounter (statuses as of 07/25/2023) Active Problems Problem Noted Date Diagnosed Date [...] change. Morteza 1 Y 09/03 mammo in [place]--likely benign w/minor asym & few calc. US slight dilated ducts on left. Hx galactorrhea. Considering reduction mammoplasty Hx abnormal paps. Last couple WNL 08/04 TC 222, LDL 153, TG 155, HDL 42. CRP1, TSH WNL Gluc 80, Celiac and Vit D WNL Allergic rhinitis 12/03/2011 Liver hemangioma S/P cholecystectomy S/P bilateral breast reduction documented as of this encounter (statuses as of 07/25/2023) Resolved Problems Problem Noted Date Diagnosed Date [...] as of this encounter (statuses as of 07/25/2023) Immunizations Name Administration Dates Next Due COVID-19 [...] encounter Miscellaneous Notes * Telephone Encounter - Maxx Rodriguez LPN - 07/25/2023 3:12 PM EDT Images from the original note were not included. Authorization Submission Submission Information: Medication: Zepbound [facility] Insurance: FEP Authorization #/Garcia: [id number] New or re-auth: New authorization Approved/Denied: EXCLUDED Drug Name and Formulation: Zepbound 2.5mg/0.5ml pen How Prescribed(directions/sig): Inject 2.5mg weekly Day Supply: 2ml per 28 days Did you receive insurance information from outside the chart? No, received insurance information within the chart Valid auth start date: N/A Valid auth end date: N/A Rx Insurance Info: [place] Reference #: N/A Rx Benefits Verified through/on date: the medical center 04/27 Referral (TE) received from: Prescribing Clinic Angelique Ba Medication Cs Associate II [facility] 04/27/23,7:08 AM * Telephone Encounter - Elysia aLma LPN - 04/26/2023 9:48 AM EST Zepbound needs prior auth. Bin: [id number] Pcn: FEPRX Id: [id number] Morbid obesity due to excess calories (HCC) Abnormal weight gain documented in this encounter Plan of Treatment Upcoming Encounters Date Type Department Care Team (Late st Contact Info) Description 09/14/2023 11:00 AM EDT Office Visit Nutrition & Weight Management, [facility] [address] [place] [address] Lita Borges PA-C [address] [place] [address] 01/02/2024 8:30 AM EDT Telemedicine Endocrinology, [place] [address] [place] [address] April Marinelli PA-C [address] [place] [address] Scheduled Procedures Name Priority Associated Diagnoses Date/Ti [...] Blood Test 2019 Sigmoidoscopy 2019 COVID-19 Vaccine (2022- season) 2022 06/08/2022, 04/07/2021, 07/08/2020, Additional history exists DTaP,Tdap,and Td Vaccines (2 - Td or Tdap) 08/07/2023 08/06/2013 Depression Screening 02/16/2024 02/15/2023, 01/30/20 18 Mammogram 03/25/2024 03/25/2023, 02/23, 03/02/2022, Additional history [...] Directives occurred with: Not Discussed Care Teams Window Repairer Relationship Specialty Start Date End Date Fortino Plunkett MD [address] [place] [address] PCP - General Family Medicine 04/17/14 documented as of this encounter
--- OUTSIDE RECORDS SUMMARY | 2023-09-04 18:17 | External Medical Summary ---
Author Name Unknown Address Unknown Organization K01:[facility] - [address] [place] [address] Laboratory Report Ordering Provider Test Date Status GLADYS DE JESUS 08/22/2023 11:56:33 Final Observation Date Value Abnormality Reference (Units ) Status Tod Chow virus capsid IgG Ab avidity [Presence] in Serum by Immunoassay 08/22/2023 11:56:33 Positive Abnormal Negative Final Performing Location [facility] - [address] [place] [address]
--- OUTSIDE RECORDS SUMMARY | 2023-09-04 18:17 | External Medical Summary | Summary of Care ---
Author Name Unknown Organization [facility] Address [address] [place] [address] Phone [phone] Care Team Providers Care Business Operations Manager Name Role Phone Fortino Plunkett MD Primary Care Provider + Reason for Visit * Reason Onset Date Comments Other 08/23/2023 Encounter Details Date Type Department Care Team (Late st Contact Info) Description 08/23/2023 Telephone Family Practice [facility] [address] [place] [id number] Fortino Plunkett MD 132 [facility] [place] [phone] Other Allergies Active Allergy Reactions Criticality Noted [...] Respimat 2.5 MCG/ACT Inhalation Aerosol Solution (Tiotropium [place] Monohydrate) Inhale by mouth 2 Puffs in [...] Layne CPhT - 08/23/2023 9:59 AM EDT Pt calling to go over lab results - transferred to casie Thank you, Nicole Layne CPhT II Senior Software Qa Analyst [facility] (Former[facility]) 08/23/2023, 9:59 AM documented in this encounter Plan of Treatment Upcoming Encounters Date Type Department Care Team (Late st Contact Info) Description 09/14/2023 11:00 AM EDT Office Visit Nutrition & Weight Management, [facility] [address] [place] [address] Lita Borges PA-C [address] [place] [address] 01/02/2024 8:30 AM EDT Telemedicine Endocrinology, [place] [address] [place] [address] April Marinelli PA-C [address] [place] [address] Scheduled Procedures Name Priority Associated Diagnoses Date/Ti [...] Directives occurred with: Not Discussed Care Teams Business Operations Manager Relationship Specialty Start Date End Date Fortino Plunkett MD [address] [address] PCP - General Family Medicine 04/17/14 documented as of this encounter
--- OUTSIDE RECORDS SUMMARY | 2023-09-04 18:17 | External Medical Summary | Summary of Care ---
Author Name Unknown Organization [facility] Address [address] [place] [address] Phone [phone] Care Team Providers Care Workday Senior Associate Name Role Phone Fortino Plunkett MD Primary Care Provider + Reason for Visit * Reason Onset Date Comments Precert Denied 04/26/2023 Zepbound Encounter Details Date Type Department Care Team (Late st Contact Info) Description 04/26/2023 Telephone Nutrition & Weight Management, [facility] 132 [facility] [place] [address] Lita Borges PA-C 132 [facility] [place] [address] Precert Denied (Zepbound) Allergies Active Allergy Reactions [...] Respimat 2.5 MCG/ACT Inhalation Aerosol Solution (Tiotropium [place] Monohydrate) Inhale by mouth 2 Puffs in [...] change. Morteza 1 Y 09/03 mammo in [place]--likely benign w/minor asym & few calc. US [...] Submission Submission Information: Medication: Zepbound Portal used: [facility] Insurance: FEP Authorization #/Garcia: [id number] New or re-auth: New authorization Approved/Denied: EXCLUDED [...] #: N/A Rx Benefits Verified through/on date: [facility] 04/27 Referral (TE) received from: Prescribing Clinic Angelique Ba Medication Video Presentation Operator II [facility] 04/27/23,7:08 AM * Telephone Encounter - Elysia Lama LPN - 04/26/2023 9:48 AM EST Zepbound needs prior auth. Bin: [id number] Pcn: FEPRX Id: [id number] Morbid obesity due to excess calories (HCC) Abnormal weight gain documented in this encounter Plan of Treatment Upcoming Encounters Date Type Department Care Team (Late st Contact Info) Description 09/14/2023 11:00 AM EDT Office Visit Nutrition & Weight Management, [facility] [address] [place] [address] Lita Borges PA-C [address] [place] [address] 01/02/2024 8:30 AM EDT Telemedicine Endocrinology, [place] [address] [place] [address] April Marinelli PA-C [address] [place] [address] Scheduled Procedures Name Priority Associated Diagnoses Date/Ti [...] Directives occurred with: Not Discussed Care Teams Workday Senior Associate Relationship Specialty Start Date End Date Fortino Plunkett MD [address] [place] [address] PCP - General Family Medicine 04/17/14 documented as of this encounter
--- OUTSIDE RECORDS SUMMARY | 2023-09-04 18:17 | External Medical Summary | Summary of Care ---
Author Name Unknown Organization [facility] Address [address] [place] [address] Phone [phone] Care Team Providers Care Revenue Cycle Analyst Name Role Phone Fortino Plunkett MD Primary Care Provider + Reason for Visit * Reason Comments Review Sleep Study WatchPAT Encounter Details Date Type Department Care Team (Late st Contact Info) Description 06/15/2023 10:00 AM EST PulmDiagnostic Sleep Lab Kalee Antunez [address] [facility] [place] [phone] [facility] [address] [facility] [place] [phone] Hypersomnia* Allergies Active Allergy Reactions Criticality Noted Date Comments Cat Dander Edema airway High 10/24/2012 Dog Dander Edema airway High 10/24/2012 Dust 10/24/2012 Nasal congestion Molds & Smuts 10/24/2012 Nasal congestion Pollen Extract 01/11/2022 Stuffy nose documented as of this encounter (statuses as of 07/18/2023) Medications Medication Sig Dispensed Refills Start Date [...] without food 60 Capsule 3 10/20/2022 Active Additional Information Patient not taking.Reported on [...] breakfast. 0 Active Benzonatate 100 MG Oral CapsuleIndications:Louis bacute cough Take 1 Capsule by mouth 3 times a day as needed for Cough. 50 Capsule 0 03/21/2023 Active Wegovy 0.25 MG/0.5ML Subcutaneous Solution Auto-injector (Semaglutide-Weight Management)Indication s:Morbid obesity due to excess calories (HCC) Inject 0.25 mg under the skin once a week. 2 mL 0 03/28/2023 Active predniSONE 10 MG Oral Tablet (Deltasone)Indication s:Exacerbation of asthma, unspecified asthma severity, unspecified whether persistent Take 5 tablets by mouth for 2 days, 4 tabs for 2 days, 3 tabs for 2 days, 2 tabs for 2 days 1 tab for 2 days 30 Tablet 0 04/14/2023 Active Zepbound 2.5 MG/0.5ML Subcutaneous Solution Auto-injector (Tirzepatide-Weight Management)Indication s:Morbid obesity due to excess calories (HCC) Inject 2.5 mg under the skin once a week. 2 mL 1 04/21/2023 Active Spiriva Respimat 2.5 MCG/ACT Inhalation Aerosol Solution (Tiotropium [place] Monohydrate) Inhale by mouth 2 Puffs in the morning. 12 g 3 05/04/2023 Active documented as of this encounter (statuses as of 07/18/2023) Active Problems Problem Noted Date Diagnosed Date [...] as of this encounter (statuses as of 07/18/2023) Resolved Problems Problem Noted Date Diagnosed Date [...] as of this encounter (statuses as of 07/18/2023) Immunizations Name Administration Dates Next Due COVID-19 [...] on file documented as of this encounter Progress Notes * Olga Pruitt DO - 07/18/2023 9:11 AM EDT WatchPAT home sleep apnea test report uploaded, viewable through Media attached to this encounter. documented in this encounter Plan of Treatment Upcoming Encounters Date Type Department Care Team (Late st Contact Info) Description 09/14/2023 11:00 AM EDT Office Visit Nutrition & Weight Management, [facility] [address] [place] [address] Lita Borges PA-C [address] [place] [address] 01/02/2024 8:30 AM EDT Telemedicine Endocrinology, [place] [address] [place] [address] April Marinelli PA-C [address] [place], [place] [phone] Scheduled Procedures Name Priority Associated Diagnoses Date/Ti [...] as of this encounter Visit Diagnoses Diagnosis Hypersomnia- Primary Hypersomnia, unspecified documented in this encounter Advance Directives Latest Code Status on File Code Status Date Activated Date Inactivated Comments Full Code 01/06/2016 2:38 PM 01/07/2016 1:40 PM This order reflects the patients wishes and were consensually agreed upon. Question Answer Comments Discussion of Advance Directives occurred with: Not Discussed Care Teams Revenue Cycle Analyst Relationship Specialty Start Date End Date Fortino Plunkett MD [address] [place] [address] PCP - General Family Medicine 04/17/14 documented as of this encounter
--- OUTSIDE RECORDS SUMMARY | 2023-09-04 18:17 | External Medical Summary | Summary of Care ---
Author Name Unknown Organization [facility] Address [address] [place] [address] Phone [phone] Care Team Providers Care Senior Analysis Specialist Name Role Phone Fortino Plunkett MD Primary Care Provider + Reason for Visit * Reason Comments Acute X 3 days-- congestio n, sore throat, mucus, difficulty sleeping, fatigue. Encounter Details Date Type Department Care Team (Late st Contact Info) Description 08/08/2023 11:40 AM EDT Office Visit Family [facility] [address] [facility] [place] [phone] Nolvia Schmid CRNP 132 [facility] [place] [address] Pharyngitis, unspecified etiology* Allergies Active Allergy Reactions Criticality Noted Date Comments Cat Dander Edema airway High 10/24/2012 Dog Dander Edema airway High 10/24/2012 Dust 10/24/2012 Nasal congestion Molds & Smuts 10/24/2012 Nasal congestion Pollen Extract 01/11/2022 Stuffy nose documented as of this encounter (statuses as of 08/08/2023) Medications Medication Sig Dispensed Refills Start Date [...] without food 60 Capsule 3 3 Active Gabapentin 100 MG Oral Capsule (Neurontin) [...] a week. 2 mL 0 3 Active Additional Information Patient not taking.Reported on 08/08/2023 Zepbound 2.5 MG/0.5ML Subcutaneous Solution Auto-injector (Tirzepatide-Weight Management)Indicatio ns:Morbid obesity due to excess calories (HCC) Inject 2.5 mg under the skin once a week. 2 mL 1 3 Active Additional Information Patient not taking.Reported on 08/08/2023 Spiriva Respimat 2.5 MCG/ACT Inhalation Aerosol Solution (Tiotropium [place] Monohydrate) Inhale by mouth 2 Puffs in the morning. 12 g 3 4 Active predniSONE 10 MG Oral Tablet (Deltasone)Indicatio ns:Pharyngitis, unspecified etiology Take 5 tablets by mouth for 2 days, 4 tabs for 2 days, 3 tabs for 2 days, 2 tabs for 2 days 1 tab for 2 days 30 Tablet 0 4 Active Benzonatate 100 MG Oral CapsuleIndications:S ubacute cough Take 1 Capsule by mouth 3 times a day as needed for Cough. 50 Capsule 0 3 08/08/19 24 Discontinu ed(Medicat ion List Clean Up) predniSONE 10 MG Oral Tablet (Deltasone)Indicatio ns:Exacerbation of asthma, unspecified asthma severity, unspecified whether persistent Take 5 tablets by mouth for 2 days, 4 tabs for 2 days, 3 tabs for 2 days, 2 tabs for 2 days 1 tab for 2 days 30 Tablet 0 3 08/08/19 24 Discontinu ed(Medicat ion List Clean Up) documented as of this encounter (statuses as of 08/08/2023) Active Problems Problem Noted Date Diagnosed Date [...] as of this encounter (statuses as of 08/08/2023) Resolved Problems Problem Noted Date Diagnosed Date [...] as of this encounter (statuses as of 08/08/2023) Immunizations Name Administration Dates Next Due COVID-19 [...] on file documented as of this encounter Last Filed Vital Signs Vital Sign Reading Time Taken Comments Blood Pressure 128/80 08/08/2023 11:36 AM EDT Pulse 100 08/08/2023 11:36 AM EDT Temperature 37 C (98.6 F) 08/08/2023 11: 36 AM EDT Respiratory Rate - - Oxygen Saturation 98% 08/08/2023 11: 36 AM EDT Inhaled Oxygen Concentration - - Weight 117.5 kg (259 lb 1.6 oz) 024 11:36 AM EDT Height - - Body Mass Index 44.47 03/28/2023 2:09 PM EST documented in this encounter Progress Notes * Nolvia Schmid CRNP - 08/08/2023 11:41 AM EDT Images from the original note were not included. History of Present Illness Juana Teran is a 48 year old female that presents for Acute (X 3 days-- congestion, sore throat, mucus, difficulty sleeping, fatigue. ) HPI Here for very sore throat and trouble swallowing with cough and congestion x 3 days. Started with mild sore throat 3 days ago and then next day congestion cough and worsening sore throat developed/progressed. No fevers, chills. Hard to sleep due to congestion and breathing through mouth. Has to really concentrate on swallowing and sometimes drooling as a result. Son was sick for a day last week now better. He had negative strep testing at that time. She would like to rule out strep with testing today. No home covid testing. No n/v/d. No rashes. Borderline TERRI not on cpap. Asthma -- taking advair and using albuterol as directed. Has some pain on her tongue and jaw on R side. Really noticed it yesterday when trying to open mouth. Outpatient Medications Marked as Taking for the 08/08/23 encounter (Office Visit) with Nolvia Schmid CRNP Medication Sig Spiriva Respimat 2.5 MCG/ACT Inhalation Aerosol Solution (Tiotropium [place] Monohydrate) Inhale bymouth 2 Puffs in the morning. Esomeprazole Magnesium 20 MG Oral Capsule Delayed Release (NexIUM 24HR Clear Minis) Take 1 Capsule by mouth daily before breakfast. Montelukast Sodium 10 MG Oral Tablet (Singulair) TAKE 1 TABLET BY MOUTH AT BEDTIME. Fluticasone-Salmeterol 500-50 MCG/ACT Inhalation Aerosol Powder Breath Activated (Advair Diskus) INHALE ONE PUFF BY MOUTH TWICE A DAY Gabapentin 100 MG Oral Capsule (Neurontin) take 1 capsule by mouth at bedtime for 3 nights, if no relief for menopausal symptoms, may increase to 2 at bedtime Multivitamin/Extra Vitamin D3 Oral Tablet Chewable Take 1 Tablet by mouth daily. Vitamin B-12 1000 MCG Oral Tablet (Cyanocobalamin) Take 1 Tablet by mouth in the morning. Please purchase without a prescription and take one daily. Vitamin D (Cholecalciferol) 25 MCG (1000 UT) Oral Tablet Take 1 Tablet by mouth in the morning. With multivit with vit D for total daily dose of 2000 units vit D per day. Doxycycline Monohydrate 100 MG Oral Capsule Take 1 capsule by mouth daily with or without food Clindamycin Phosphate 1 % External Gel Apply twice daily to areas in groin creases as per instructions on checkout sheet Albuterol Sulfate HFA 108 (90 Base) MCG/ACT Inhalation Aerosol Solution Inhale 2 Puffs by mouth every 4 hours as needed for Cough, Shortness of Breath or Wheezing. Levocetirizine Dihydrochloride 5 MG Oral Tablet Take 1 tablet daily each evening to prevent allergyrelated symptoms (Patient taking differently: Take 1 Tablet by mouth every evening. Take 1 tablet daily each evening to prevent allergy related symptoms) metroNIDAZOLE 1 % External Gel (METROGEL) Apply topically to affected area 2 times a day. To affected area. albuterol-ipratropium (DUONEB) 2.5-0.5 MG/3ML nebulizer solution Inhale 3 mL via nebulizer 4 times a day. ibuprofen (MOTRIN) 200 MG Tablet Take 1 Tablet by mouth every 4 hours as needed for Pain. Physical Exam Vitals: 08/08/23 1136 Temp: 37 C (98.6 F) Pulse: 100 SpO2: 98% BP: 128/80 Physical Exam Vitals reviewed. Constitutional: Appearance: Normal appearance. HENT: Head: Normocephalic and atraumatic. Jaw: No tenderness. Salivary Glands: Right salivary gland is not diffusely enlarged or tender. Left salivary gland is not diffusely enlarged or tender. Right Ear: Tympanic membrane, ear canal and external ear normal. Left Ear: Tympanic membrane, ear canal and external ear normal. Nose: Congestion and rhinorrhea present. Mouth/Throat: Mouth: Mucous membranes are moist. Dentition: No gingival swelling. Tongue: No lesions. Pharynx: Posterior oropharyngeal erythema and uvula swelling (mild) present. No oropharyngeal exudate. Tonsils: No tonsillar exudate or tonsillar abscesses. Eyes: Extraocular Movements: Extraocular movements intact. Conjunctiva/sclera: Conjunctivae normal. Pupils: Pupils are equal, round, and reactive to light. Cardiovascular: Rate and Rhythm: Normal rate. Pulmonary: Effort: Pulmonary effort is normal. No respiratory distress. Musculoskeletal: Cervical back: Neck supple. Right lower leg: No edema. Left lower leg: No edema. Lymphadenopathy: Cervical: No cervical adenopathy. Skin: General: Skin is warm and dry. Capillary Refill: Capillary refill takes less than 2 seconds. Neurological: Mental Status: She is alert and oriented to person, place, and time. Psychiatric: Behavior: Behavior normal. Thought Content: Thought content normal. Assessment and Plan Pharyngitis, unspecified etiology Close monitoring of symptoms -- if progression of dysphagia or any difficulty breathing should go to ER immediately No signs of abscess on exam Will have her start steroid now and await testing results prior to initiating any treatment - STREP A SCREEN, POINT OF CARE (ENTER/EDIT) - GROUP A STREP PCR - INFLUENZA A/B RSV SARS-COV2,PCR; Future - predniSONE 10 MG Oral Tablet (Deltasone); Take 5 tablets by mouth for 2 days, 4 tabs for 2 days, 3 tabs for 2 days, 2 tabs for 2 days 1 tab for 2 days Wrap-Up Follow Up: Return if symptoms worsen or fail to improve. Time: I spent a total of 20-29 minutes (exact time 20 mins) on the date of service in preparation, delivery, and documentation of the care provided to Juana Teran excluding any time spent in the performance of separately billed services. documented in this encounter Nursing Notes * Syl Pearl LPN - 08/08/2023 11:34 AM EDT The patient has been properly identified by confirmation of name and date of . Chief Complaint Patient presents with Acute X 3 days-- congestion, sore throat, mucus, difficulty sleeping, fatigue. Would like swabbed for strep. No covid test. documented in this encounter Plan of Treatment Upcoming Encounters Date Type Department Care Team (Late st Contact Info) Description 09/14/2023 11:00 AM EDT Office Visit Nutrition & Weight Management, [facility] [address] [facility] [place] [phone] Lita Borges PA-C [address] [place] [phone] 01/02/2024 8:30 AM EDT Telemedicine Endocrinology, [place] [address] [facility] [place] [phone] April Marinelli [facility]C [address] [facility] [place] [phone] Pending Results Name Type Priority Associated Diagnoses Date /Time STREP A SCREEN, POINT OF CARE (ENTER/EDIT) Point of Care Testing Routine Pharyngitis, unspecified etiology 08/08/2023 GROUP A STREP PCR Lab Routine Pharyngitis, unspecified etiology 08/08/2023 11:48 AM EDT INFLUENZA A/B RSV SARS-COV2,PCR Lab Routine Pharyngitis, unspecified etiology 08/08/2023 12:13 PM EDT Scheduled Orders Name Type Priority Associated Diagnoses Orde r Schedule INFLUENZA A/B RSV SARS-COV2,PCR Lab Routine Pharyngitis, unspecified etiology Expected: 08/08/2023 (Approximate), Expires: 08/07/2024 Scheduled Procedures Name Priority Associated Diagnoses Date/Ti [...] as of this encounter Visit Diagnoses Diagnosis Pharyngitis, unspecified etiology- Primary documented in this encounter Advance Directives Latest Code Status on File Code Status Date Activated Date Inactivated Comments Full Code 01/06/2016 2:38 PM 01/07/2016 1:40 PM This order reflects the patients wishes and were consensually agreed upon. Question Answer Comments Discussion of Advance Directives occurred with: Not Discussed Care Teams Senior Analysis Specialist Relationship Specialty Start Date End Date Fortino Plunkett MD [address] [place] [id number] PCP - General Family Medicine 04/17/14 documented as of this encounter
--- OUTSIDE RECORDS SUMMARY | 2023-09-04 18:17 | External Medical Summary | Summary of Care ---
Author Name Unknown Organization [facility] Address [address] [place] [address] Phone [phone] Care Team Providers Care Public Housing Manager Name Role Phone Fortino Plunkett MD Primary Care Provider + Reason for Visit * Reason Onset Date Comments Precert Denied 04/26/2023 Zepbound Encounter Details Date Type Department Care Team (Late st Contact Info) Description 04/26/2023 Telephone Nutrition & Weight Management, [facility] 132 [facility] [place] [address] Lita Borges PA-C 132 [facility] [place] [address] Precert Denied (Zepbound) Allergies Active Allergy Reactions Criticality Noted Date Comments Cat Dander Edema airway High 10/24/2012 Dog Dander Edema airway High 10/24/2012 Dust 10/24/2012 Nasal congestion Molds & Smuts 10/24/2012 Nasal congestion Pollen Extract 01/11/2022 Stuffy nose documented as of this encounter (statuses as of 05/02/2023) Medications Medication Sig Dispensed Refills Start Date [...] prevent allergy related symptoms, Reported on 06/11/2022 Spiriva Respimat 2.5 MCG/ACT Inhalation Aerosol Solution (Tiotropium [place] Monohydrate) Inhale by mouth 2 Puffs in the morning. 12 g 3 04/13/2022 Active Albuterol Sulfate HFA 108 (90 Base) MCG/ACT [...] a week. 2 mL 1 04/21/2023 Active documented as of this encounter (statuses as of 05/02/2023) Active Problems Problem Noted Date Diagnosed Date [...] as of this encounter (statuses as of 05/02/2023) Resolved Problems Problem Noted Date Diagnosed Date [...] as of this encounter (statuses as of 05/02/2023) Immunizations Name Administration Dates Next Due COVID-19 [...] encounter Miscellaneous Notes * Telephone Encounter - Elysia Lama LPN - 04/26/2023 9:48 AM EST Zepbound needs prior auth. Bin: [id number] Pcn: [id number] Id: [id number] Morbid obesity due to excess calories (HCC) Abnormal weight gain documented in this encounter Plan of Treatment Upcoming Encounters Date Type Department Care Team (Late st Contact Info) Description 06/15/2023 10:00 AM EST PulmDiagnostic Sleep Lab [facility] 132 [facility] [place] [address] [facility], Sleep Med Home Study [place] [address] [facility] [place] [address] 09/14/2023 11:00 AM EDT Office Visit Nutrition & Weight Management, [facility] 132 [facility] [place] [address] Lita Borges PA-C [address] [facility] [place] [address] 01/02/2024 8:30 AM EDT Telemedicine Endocrinology, [place] [address] [place] [address] April Marinelli PA-C [address], [place] [phone] Scheduled Procedures Name Priority Associated Diagnoses Date/Ti me COLONOSCOPY FLEXIBLE PROXIMAL DIAGNOSTIC Recall Screen for colon cancer Health Maintenance Due Date Last Done Comments Hepatitis B (1 of 3 - 3-dose series) 1974 Hepatitis C Screening 1992 Pneumococcal Vaccine: Pediatrics (0 to 5 Years) and At-Risk Patients (6 to 64 Years) (2 - PCV) 08/24/2015 08/23/2014 Cologuard 2019 Fecal Occult Blood Test 2019 Sigmoidoscopy 2019 COVID-19 Vaccine ( - season) 2022 06/08/2022, 04/07/2021, 07/08/2020, Additional history exists DTaP,Tdap,and Td Vaccines (2 - Td or Tdap) 08/07/2023 08/06/2013 Depression Screening 02/16/2024 02/15/2023, 01/30/20 18 Mammogram 03/25/2024 03/25/2023, 02/23, 03/02/2022, Additional history exists Diabetes Screening 10/14/2025 10/14/2022, 0 10/14/2022, 09/11/2021, Additional history exists Pap Smear 02/15/2026 02/15/2023, 10/0 10/2018, 01/29/2019, Additional history exists Lipid Panel [...] Directives occurred with: Not Discussed Care Teams Public Housing Manager Relationship Specialty Start Date End Date Fortino Plunkett MD [address] [place] [address] PCP - General Family Medicine 04/17/14 documented as of this encounter
--- OUTSIDE RECORDS SUMMARY | 2023-09-04 18:17 | External Medical Summary ---
Author Name Unknown Address Unknown Organization [id number]:[facility] [address] [place] [address] Laboratory Report Ordering Provider Test Date Status GLADYS DE JESUS 08/22/2023 11:56:33 Final Observation Date Value Abnormality Reference (Units ) Status SYNC LEUKOCYTES IN BLOOD BY AUTOMATED COUNT 08/22/2023 11:56:33 10.58 4.00-10.80 (K/uL) Final Segs 08/22/2023 11:56:33 60.9 40.0-75.0 (%) Final Lymphs % 08/22/2023 11:56:33 28.8 18.0-42.0 (%) Final Monos 08/22/2023 11:56:33 8.1 1.0-11.0 (%) Final Eosinophils 08/22/2023 11:56:33 1.9 0.0-6.0 (%) Final Basos 08/22/2023 11:56:33 0.3 0.0-2.0 (%) Final Absolute Segs 08/22/2023 11:56:33 6.44 1.80-7.70 (K/uL) Final Lymphs, absolute 08/22/2023 11:56:33 3.05 1.00-4.80 (K/ul) Final Monos, Abs 08/22/2023 11:56:33 0.86 0.00-1.10 (K/uL) Final Eos, Abs 08/22/2023 11:56:33 0.20 0.00-0.70 (K/uL) Final Basos, Abs 08/22/2023 11:56:33 0.03 0.00-0.20 (K/uL) Final Performing Location [facility] - [address] [place] [address]
--- OUTSIDE RECORDS SUMMARY | 2023-09-04 18:17 | External Medical Summary | Summary of Care ---
Author Name Unknown Organization [facility] Address [address] [place] [address] Phone [phone] Care Team Providers Care Linen Keeper Name Role Phone Fortino Plunkett MD Primary Care Provider + Reason for Visit * Reason Comments Acute X 3 days-- congestio n, sore throat, mucus, difficulty sleeping, fatigue. Encounter Details Date Type Department Care Team (Late st Contact Info) Description 08/08/2023 11:40 AM EDT Office Visit Family [facility] 132 [facility] [place] [phone] Nolvia Schmid CRNP 132 [facility] [place] [address] Pharyngitis, unspecified etiology* Allergies Active Allergy Reactions [...] Respimat 2.5 MCG/ACT Inhalation Aerosol Solution (Tiotropium [place] Monohydrate) Inhale by mouth 2 Puffs in [...] Respimat 2.5 MCG/ACT Inhalation Aerosol Solution (Tiotropium [place] Monohydrate) Inhale bymouth 2 Puffs in the [...] EDT Office Visit Nutrition & Weight Management, [facility] [address] [facility] [place] [address] Lita Borges PA-C [address] [place] [address] 01/02/2024 8:30 AM EDT Telemedicine Endocrinology, [place] [address] [facility] [place] [phone] April Marinelli PA-C [address] [facility] [place] [address] Pending Results Name Type Priority Associated Diagnoses [...] Directives occurred with: Not Discussed Care Teams Linen Keeper Relationship Specialty Start Date End Date Fortino Plunkett MD [address] [place] [address] PCP - General Family Medicine 04/17/14 documented as of this encounter
--- OUTSIDE RECORDS SUMMARY | 2023-09-04 18:17 | External Medical Summary ---
Author Name Unknown Address Unknown Organization K0G:[facility] [address] - [address] [place] [address] Laboratory Report Ordering Provider Test Date Status JOSE MIGUEL BURKS 08/08/2023 12:13:03 Final Observation Date Value Abnormality Reference (Units ) Status SARS Coronavirus 2 08/08/2023 12:13:03 Negative N egative Final No SARS-CoV2 Coronavirus RNA detected by PCR (amplified probe).
This express test was developed and its performance characteristics determined by [facility]. It has not been cleared or approved by the U.S. Food and Drug Administration (FDA). FDA does not require this test to go thru premarket FDA review. This test is used for clinical purposes. It should not be regarded as investigational or for research. This laboratory is certified under the Clinical Laboratory Improvement Amendments (CLIA) as qualified to perform high complexity clinical laboratory testing.

This test is a nucleic acid amplification test (NAAT), a reverse transcriptase polymerase chain reaction (RT-PCR) test, or a Centers for Disease Control-acceptable equivalent. The test is performed in a high complexity Clinical Laboratory Improvement Amendments-(CLIA) certified laboratory. The test is acceptable for SARS-CoV-2 diagnosis, surveillance, and travel within the [place] and to most countries. Please check with local testing authorities about requirements before travel.

The validation of bronchial specimens, tracheal aspirates, and sputum for this assay was developed and performance characteristics determined by [facility]. The validation of alternate specimen types has not been cleared or approved by the U.S. Food and Drug Administration (FDA). It has been determined that such clearance is not necessary. Influenza virus A RNA [Prese nce] in Specimen by RENATO with probe detection 08/08/2023 12:13:03 Negative Negative Final No Influenza A RNA detected by PCR (amplified probe) Influenza virus B RNA [Prese nce] in Specimen by RENATO with probe detection 08/08/2023 12:13:03 Negative Negative Final No Influenza B RNA detected by PCR (amplified probe) Respiratory syncytial virus RNA [Identifier] in Specimen by RENATO with probe detection 08/08/2023 12:13:03 Negative Negative Final No Respiratory Syncytial Vir us RNA detected by PCR (amplified probe) Performing Location [facility] - [address] [place] [address]
--- OUTSIDE RECORDS SUMMARY | 2023-09-04 18:17 | External Medical Summary ---
Author Name Unknown Address Unknown Organization [id number]:[facility] - [address] [place] [address] Laboratory Report Ordering Provider Test Date Status TANIA CARLOS 08/22/2023 11:56:33 Final Deficient: <20 ng/mL
Ins ufficient: 20-29 ng/mL
Recommended/Optimum:30-50 ng/mL

Vitamin D intoxication is rare. If suspicious of Vitamin D toxicity, evaluation of serum Calcium and PTH is recommended. Observation Date Value Abnormality Reference (Units ) Status 25-OH Vitamin D total 08/22/2023 11:56:33 22 >19 (ng/mL) Final Performing Location [facility] - [address] [place] [address]
--- OUTSIDE RECORDS SUMMARY | 2023-09-04 18:17 | External Medical Summary ---
Author Name Unknown Address Unknown Organization K0G:[facility] [address] [place] [address] Laboratory Report Ordering Provider Test Date Status JOSE DE JESUSNITHYA 08/22/2023 11:56:33 Final Observation Date Value Abnormality Reference (Units ) Status WBC, Total 08/22/2023 11:56:33 10.58 4.00-10.8 0 (K/uL) Final RBC 08/22/2023 11:56:33 4.67 3.85-5.15 (M/uL) Final Hemoglobin 08/22/2023 11:56:33 13.3 12.0-15.3 (g/dL) Final HCT 08/22/2023 11:56:33 41.5 36.0-45.2 (%) Final MCV 08/22/2023 11:56:33 88.9 81.5-97.5 (fL) Final MCH 08/22/2023 11:56:33 28.5 27.0-34.0 (pg) Final MCHC 08/22/2023 11:56:33 32.0 32.0-36.0 (g/dL) Final RDW 08/22/2023 11:56:33 14.6 11.5-15.5 (%) Final Platelets 08/22/2023 11:56:33 291 140-400 (K /uL) Final MPV 08/22/2023 11:56:33 10.0 6.6-11.1 ( fL) Final Performing Location [facility] [address] [place] [address]
--- OUTSIDE RECORDS SUMMARY | 2023-09-04 18:17 | External Medical Summary | Summary of Care ---
Author Name Unknown Organization [facility] Address [address] [place] [address] Phone [phone] Care Team Providers Care Wool Spotter Name Role Phone Fortino Plunkett MD Primary Care Provider + Reason for Visit * Reason Comments Review Sleep Study WatchPAT Encounter Details Date Type Department Care Team (Late st Contact Info) Description 06/15/2023 10:00 AM EST PulmDiagnostic Sleep Lab [place] 132 [facility] [place] [phone] [facility] Home [facility] [address] [facility] [place] [address] Hypersomnia* Allergies Active Allergy Reactions Criticality Noted [...] Respimat 2.5 MCG/ACT Inhalation Aerosol Solution (Tiotropium [place] Monohydrate) Inhale by mouth 2 Puffs in [...] Office Visit Nutrition & Weight Management, [facility] [address] [place] [address] Lita Borges PA-C [address] [place] [address] 01/02/2024 8:30 AM EDT Telemedicine Endocrinology, [place] [address] [place] [address] April Marinelli PA-C [address] [place], [place] [phone] Scheduled Procedures Name Priority Associated Diagnoses Date/Ti [...] Directives occurred with: Not Discussed Care Teams Wool Spotter Relationship Specialty Start Date End Date Fortino Plunkett MD [address] [place] [id number] PCP - General Family Medicine 04/17/14 documented as of this encounter
--- OUTSIDE RECORDS SUMMARY | 2023-09-04 18:17 | External Medical Summary | Summary of Care ---
Author Name Unknown Organization [facility] Address [address] [place] [address] Phone [phone] Care Team Providers Care Card Player Name Role Phone Fortino Plunkett MD Primary Care Provider + Reason for Visit * Reason Comments Outpatient Testing Encounter Details Date Type Department Care Team (Late st Contact Info) Description 08/22/2023 12:20 PM EDT Laboratory Laboratory, [facility] [address] [facility] [place] [id number] [facility] [address] [facility] [place] [address] Vitamin D deficiency; Malaise and fatigue Allergies Active Allergy Reactions Criticality Noted Date Comments Cat Dander Edema airway High 10/24/2012 Dog Dander Edema airway High 10/24/2012 Dust 10/24/2012 Nasal congestion Molds & Smuts 10/24/2012 Nasal congestion Pollen Extract 01/11/2022 Stuffy nose documented as of this encounter (statuses as of 08/22/2023) Medications Medication Sig Dispensed Refills Start Date [...] Respimat 2.5 MCG/ACT Inhalation Aerosol Solution (Tiotropium Weiser Monohydrate) Inhale by mouth 2 Puffs in [...] as of this encounter (statuses as of 08/22/2023) Active Problems Problem Noted Date Diagnosed Date [...] change. Morteza 1 Y 09/03 mammo in [place]--likely benign w/minor asym & few calc. US slight dilated ducts on left. Hx galactorrhea. Considering reduction mammoplasty Hx abnormal paps. Last couple WNL 08/04 TC 222, LDL 153, TG 155, HDL 42. CRP1, TSH WNL Gluc 80, Celiac and Vit D WNL Allergic rhinitis 12/03/2011 Liver hemangioma S/P cholecystectomy S/P bilateral breast reduction documented as of this encounter (statuses as of 08/22/2023) Resolved Problems Problem Noted Date Diagnosed Date [...] as of this encounter (statuses as of 08/22/2023) Immunizations Name Administration Dates Next Due COVID-19 [...] on file documented as of this encounter Plan of Treatment Upcoming Encounters Date Type Department Care Team (Late st Contact Info) Description 09/14/2023 11:00 AM EDT Office Visit Nutrition & Weight Management, [facility] [address] [place] [address] Lita Borges PA-C [address] [place] [address] 01/02/2024 8:30 AM EDT Telemedicine Endocrinology, [place] [address] [place] [address] April Marinelli PA-C [address] [place] [address] Pending Results Name Type Priority Associated Diagnoses Date /Time 25-HYDROXY VITAMIN D Lab Routine Vitamin D deficiency 08/22/2023 11:56 AM EDT EBV VIRAL CAPSID ANTIGEN IGG ANTIBODY Lab Routine Malaise and fatigue 08/22/2023 11:56 AM EDT Scheduled Procedures Name Priority Associated Diagnoses Date/Ti [...] MD LAB BLOOD ORDERABL ES LABORATORY [facility] [id number] [facility] [place] [address] * CBC (08/22/2023 11:56 AM EDT) Pathologist [facility] WBC 10.58 4.00 - 10.80 K/uL 08/22/2023 [...] LAB BLOOD ORDERABL ES Performing Organization Address City/State/[facility] Co de Phone Number LABORATORY [facility] [place] [phone] [place] [address] documented in this encounter Visit Diagnoses Diagnosis [...] Directives occurred with: Not Discussed Care Teams Card Player Relationship Specialty Start Date End Date Fortino Plunkett MD [address] [place] [id number] PCP - General Family Medicine 04/17/14 documented as of this encounter
--- OUTSIDE RECORDS SUMMARY | 2023-09-04 18:17 | External Medical Summary ---
Author Name Unknown Address Unknown Organization K01:LABORATORY [facility] - [facility] [address] [place] [address] Laboratory Report Ordering Provider Test Date Status GLADYS DE JESUS 08/22/2023 11:56:33 Final Observation Date Value Abnormality Reference (Units ) Status Tod Chow virus capsid IgM Ab [Presence] in Serum by Immunoassay 08/22/2023 11:56:33 Negative Negative Final Performing Location LABORATORY [facility] - [address] [place] [address]
--- OUTSIDE RECORDS SUMMARY | 2023-09-04 18:17 | External Medical Summary | Summary of Care ---
Author Name Unknown Organization [facility] Address [address] [place] [address] Phone [phone] Care Team Providers Care Derrickman Helper Name Role Phone Fortino Plunkett MD Primary Care Provider + Encounter Details Date Type Department Care Team (Late st Contact Info) Description 04/21/2023 Telephone Pharmacy, [facility] [address] [facility] [place] [address] Olga Leon, [facility] [address] [place] [address] Allergies Active Allergy Reactions Criticality Noted Date Comments Cat Dander Edema airway High 10/24/2012 Dog Dander Edema airway High 10/24/2012 Dust 10/24/2012 Nasal congestion Molds & Smuts 10/24/2012 Nasal congestion Pollen Extract 01/11/2022 Stuffy nose documented as of this encounter (statuses as of 04/26/2023) Medications Medication Sig Dispensed Refills Start Date [...] Respimat 2.5 MCG/ACT Inhalation Aerosol Solution (Tiotropium Blanding Monohydrate) Inhale by mouth 2 Puffs in [...] as of this encounter (statuses as of 04/26/2023) Active Problems Problem Noted Date Diagnosed Date [...] as of this encounter (statuses as of 04/26/2023) Resolved Problems Problem Noted Date Diagnosed Date [...] as of this encounter (statuses as of 04/26/2023) Immunizations Name Administration Dates Next Due COVID-19 [...] EST PulmDiagnostic Sleep Lab Kalee Antunez [address] [place] [address] [facility] Sleep Med Home Study [facility] [place] [address] 09/14/2023 11:00 AM EDT Office Visit Nutrition & Weight Management, [facility] [address] [place] [address] Lita Borges PA-C [address] [place] [address] 01/02/2024 8:30 AM EDT Telemedicine Endocrinology, [place] [address] [place] [address] April Marinelli PA-C [address], [place] [id number] Scheduled Procedures Name Priority Associated Diagnoses Date/Ti [...] Directives occurred with: Not Discussed Care Teams Derrickman Helper Relationship Specialty Start Date End Date Fortino Plunkett MD 132 [facility] [place] [address] PCP - General Family Medicine 04/17/14 documented as of this encounter
--- OUTSIDE RECORDS SUMMARY | 2023-09-04 18:17 | External Medical Summary | Summary of Care ---
Author Name Unknown Organization [facility] Address [address] [place] [address] Phone [phone] Care Team Providers Care Fishing Rod Mechanic Name Role Phone Fortino Hendrickson MD Primary Care Provider + Reason for Visit * Reason Comments Medication Refill Encounter Details Date Type Department Care Team (Late st Contact Info) Description 05/04/2023 Refill Family Practice [facility] 132 [facility] [place] [address] Janki Adams CRNP 132 [facility] [place] [address] Allergies Active Allergy Reactions Criticality Noted Date Comments Cat Dander Edema airway High 10/24/2012 Dog Dander Edema airway High 10/24/2012 Dust 10/24/2012 Nasal congestion Molds & Smuts 10/24/2012 Nasal congestion Pollen Extract 01/11/2022 Stuffy nose documented as of this encounter (statuses as of 05/04/2023) Medications Medication Sig Dispensed Refills Start Date [...] Respimat 2.5 MCG/ACT Inhalation Aerosol Solution (Tiotropium Wheeler Monohydrate) Inhale by mouth 2 Puffs in the morning. 12 g 3 4 Active Spiriva Respimat 2.5 MCG/ACT Inhalation Aerosol Solution (Tiotropium Wheeler Monohydrate) Inhale by mouth 2 Puffs in the morning. 12 g 3 2 05/04/19 24 Discontinu ed(Refill) documented as of this encounter (statuses as of 05/04/2023) Active Problems Problem Noted Date Diagnosed Date [...] change. Morteza 1 Y 09/03 mammo in [place]--likely benign w/minor asym & few calc. US slight dilated ducts on left. Hx galactorrhea. Considering reduction mammoplasty Hx abnormal paps. Last couple WNL 08/04 TC 222, LDL 153, TG 155, HDL 42. CRP1, TSH WNL Gluc 80, Celiac and Vit D WNL Allergic rhinitis 12/03/2011 Liver hemangioma S/P cholecystectomy S/P bilateral breast reduction documented as of this encounter (statuses as of 05/04/2023) Resolved Problems Problem Noted Date Diagnosed Date [...] as of this encounter (statuses as of 05/04/2023) Immunizations Name Administration Dates Next Due COVID-19 [...] encounter Miscellaneous Notes * Telephone Encounter - Yana Roche [facility] - 05/04/2023 8:33 PM EST Signed Prescriptions: Disp Refills Spiriva Respimat 2.5 MCG/ACT Inhalation Ae*12 g 3 Sig: Inhale bymouth 2 Puffs in the morning.Authorizing Provider: FORTINO HENDRICKSON User: YANA ROCHE documented in this encounter Plan of Treatment Upcoming Encounters Date Type Department Care Team (Late st Contact Info) Description 06/15/2023 10:00 AM EST PulmDiagnostic Sleep Lab Kalee Antunez [address] [place] [address] [facility] Home Study [place] [address] [place] [address] 09/14/2023 11:00 AM EDT Office Visit Nutrition & Weight Management, [facility] [address] [place] [address] Lita Borges PA-C [address] [place] [address] 01/02/2024 8:30 AM EDT Telemedicine Endocrinology, [place] [address] [place] [address] April Marinelli PA-C [address] [place] [address] Scheduled Procedures Name Priority Associated Diagnoses Date/Ti [...] 2019 Sigmoidoscopy 2019 COVID-19 Vaccine ( - 2022- season) 2022 06/08/2022, 04/07/2021, 07/08/2020, Additional history [...] Directives occurred with: Not Discussed Care Teams Fishing Rod Mechanic Relationship Specialty Start Date End Date Fortino Hendrickson MD [address] [place] [address] PCP - General Family Medicine 04/17/14 documented as of this encounter
--- OUTSIDE RECORDS SUMMARY | 2023-09-04 18:17 | External Medical Summary ---
Author Name Unknown Address Unknown Organization K01:LABORATORY [facility] - [address] [place] [address] [address] [facility] [address] Laboratory Report Ordering Provider Test Date Status JOSE MIGUEL BURKS 08/08/2023 11:48:04 Final Observation Date Value Abnormality Reference (Units) Status Streptococcus pyogenes DNA [Presence] in Throat by RENATO with probe detection 08/08/2023 11:48:04 Negative. No Group A Streptococcus detected by PCR (amplified probe). Negative Final This test was developed and its performance characteristics determined by [facility]. It has not been cleared or approved by the FDA. The laboratory is regulated under CLIA as qualified to perform high- complexity testing. This test is used for clinical purposes. It should not be regarded as investigational or for research. Performing Location LABORATORY [facility] - [facility] [address] [facility] [address] [facility] [address]
--- OUTSIDE RECORDS SUMMARY | 2023-09-04 18:18 | External Medical Summary | Summary of Care ---
Author Name Unknown Organization [facility] Address [address] [place] [address] Phone [phone] Care Team Providers Care Pneumatic Tester Name Role Phone Fortino Plunkett MD Primary Care Provider + Reason for Visit * Reason Comments Cough Patient states she h ad cold symptoms about 3 weeks ago; states is now having productive cough Short of Breath Asthma Encounter Details Date Type Department Care Team (Late st Contact Info) Description 03/21/2023 9:00 AM EST Office Visit Family [facility] [address] [facility] [place] [id number] Josie Ariza CRNP [address] [facility] [place] [address] Upper respiratory tract infection, unspecified type*; Subacute cough; Mild intermittent asthma without complication Allergies Active Allergy Reactions Criticality Noted Date Comments Cat Dander Edema airway High 10/24/2012 Dog Dander Edema airway High 10/24/2012 Dust 10/24/2012 Nasal congestion Molds & Smuts 10/24/2012 Nasal congestion Pollen Extract 01/11/2022 Stuffy nose documented as of this encounter (statuses as of 03/21/2023) Medications Medication Sig Dispensed Refills Start Date [...] Respimat 2.5 MCG/ACT Inhalation Aerosol Solution (Tiotropium [place] Monohydrate) Inhale by mouth 2 Puffs in the morning. 12 g 3 04/13/2022 Active Albuterol Sulfate HFA 108 (90 Base) MCG/ACT Inhalation Aerosol Solution Inhale 2 Puffs by mouth every 4 hours as needed for Cough, Shortness of Breath or Wheezing. 8.5 g 3 06/11/2022 Active Famotidine 20 MG Oral Tablet (Pepcid) Take 1 Tablet by mouth in the morning and 1 Tablet before bedtime. 60 Tablet 11 06/11/2022 Active Additional Information Patient not taking.Reported on 02/15/2023 Clindamycin Phosphate 1 % External GelIndications:Follic ulitis,Furunculosis [...] Tablet by mouth daily. 0 10/15/2022 Active Additional Information Patient not taking.Reported on 03/21/2023 Vitamin D (Cholecalciferol) 25 MCG (1000 UT) [...] one daily. 100 Tablet 3 10/15/2022 Active Additional Information Patient not taking.Reported on 03/21/2023 Fluticasone-Salmetero l 500-50 MCG/ACT Inhalation Aerosol Powder Breath Activated (Advair Diskus)Indications:Se nely persistent asthma without complication INHALE ONE PUFF BY MOUTH TWICE A DAY 60 Each 5 02/01/2023 4 Active Montelukast Sodium 10 MG Oral Tablet (Singulair)Indication s:Mild intermittent asthma without complication,Allergic rhinitis due to animal hair and dander TAKE 1 TABLET BY MOUTH AT BEDTIME. 90 Tablet 3 02/23/2023 Active Esomeprazole Magnesium 20 MG Oral Capsule Delayed Release (NexIUM 24HR Clear Minis) Take 1 Capsule by mouth daily before breakfast. 0 Active Benzonatate 100 MG Oral CapsuleIndications:Louis bacute cough Take 1 Capsule by mouth 3 times a day as needed for Cough. 50 Capsule 0 03/21/2023 Active documented as of this encounter (statuses as of 03/21/2023) Active Problems Problem Noted Date Diagnosed Date [...] as of this encounter (statuses as of 03/21/2023) Resolved Problems Problem Noted Date Diagnosed Date [...] as of this encounter (statuses as of 03/21/2023) Immunizations Name Administration Dates Next Due COVID-19 mRNA, LNP-s, No Pre serve, 2-Dose Series (Moderna) 07/08/2020,06/10/2020 COVID-19, mRNA, LNP-s, PF, B ooster, 100mcg/0.5mg (Moderna) 04/07/2021 Covid-19, Mrna, Lnp-s, Pf, B ivalent, 30 Mcg, IM, 12 yrs and above (Pfizer) 06/08/2022 Pneumococcal Polysaccharide PPV23 (Pneumovax) 08/23/2014 SEASONAL INFLUENZA, PF, 6 M & Above, IM , (FLULAVAL or FLUZONE) 03/11/2022,02/03/2021,02/01/2020,01/29,02/13/2018 Seasonal Influenza, Quadriva lent, No Preserve, IM 01/10/2017,04/01/2016 Seasonal Influenza, Split, I IV3, With Preserve, Inj 01/28/2014 TDAP (age 10 and older)(Boostrix) 08/06/2013 documented as of this encounter Social History Tobacco Use Types Packs/Day Years Used Date Smoking Tobacco: Never Smokeless Tobacco: Never Tobacco Cessation:Counseling Given: Not Answered Comments:No passive smoke exposures Alcohol Use Standard Drinks/Week Comments Yes 0 [...] Sign Reading Time Taken Comments Blood Pressure 128/68 03/21/2023 9:26 AM EST Pulse 79 03/21/2023 9:26 AM EST Temperature 36.8 C (98.2 F) 03/21/2023 9:26 AM ES T Respiratory Rate 16 03/21/2023 9:26 AM EST Oxygen Saturation 97% 03/21/2023 9:26 AM EST room air Inhaled Oxygen Concentration - - Weight 120.6 kg (265 lb 12.8 oz) 03/21/2023 9:26 AM EST Height - - Body Mass Index 45.6 03/10/2023 8:59 AM EST documented in this encounter Progress Notes * Josie Ariza CRNP - 03/21/2023 9:41 AM EST Images from the original note were not included. URI Family Medicine Visit History of Present Illness CC: Chief Complaint Patient presents with Cough Patient states she had cold symptoms about 3 weeks ago; states is now having productive cough Short of Breath Asthma Juana Teran is a very pleasant 47 year old female with above complaints x 3 weeks. She had cold symptoms 3 weeks ago. She had asthma exacerbation last week, so she made this appointment. Started to use nebulizer last week and cough syrup last week, and symptoms seem to improve slightly. Using Singular, Spiriva, Advair daily Albuterol with spacer doesn't work well for her Nebulizer 2 times/day last week Lungs feel less congested today, but still has lingering cough Previous lung disease: Asthma -fever, t max - -chills -sweats -decreased appetite +tolerating fluids -HERNANDEZ +congestion -loss of taste or smell -runny nose +PND -ear pain -sore throat +cough -productive of mucous -sob -wheezing -nausea -diarrhea -constipation -vomiting -body aches -Rash -Sleep disruption Past Medical History: Diagnosis Date Abnormal Pap smear of cervix hx LEEP Asthma Body mass index (BMI) of 40.0 to 44.9 in adult (HCC) 09/02/2020 Per Obesity protocol Cholecystitis Eczema Family history of breast cancer in mother 10/24/2012 Folliculitis H/O mammogram 2012 b/l & US--hx milk production Hirsutism Liver hemangioma 2009, 2010 stable on f/u (normal spontaneous vaginal delivery) 01/20/2010 Obesity, Class II, BMI 35-39.9, isolated (see actual BMI) 12/03/2011 PMDD (premenstrual dysphoric disorder) 09/12/2015 Routine general medical examination at a health care facility 12/03/2011 S/P bilateral breast reduction 12/2015 S/P cholecystectomy DIEGO (stress urinary incontinence, female) 11/11/2017 Toxic shock syndrome (TSS) ([facility]) 15YO hosp for tampon Vitamin D deficiency 12/03/2011 Social History Socioeconomic History Marital status: Spouse name: Not on file Number of children: Not on file Years of education: Not on file Highest education level: Not on file Occupational History 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 vasectomy. 1 biol son 8, 1 stepson..4 Other Topics Concern Not on file Social History Narrative Likes horseback riding-hasnt' done recently Starting walking, bike riding. Exercise 30-60min/day. Social Determinants of Health Financial Resource Strain: Not on file Food Insecurity: No Food Insecurity (12/08/2022) Hunger Vital Sign Worried About Running Out of Food in the Last Year: Never true Ran Out of Food in the Last Year: Never true Transportation Needs: Not on file Physical Activity: Not on file Stress: Not on file Social Connections: Not on file Intimate Partner Violence: Not on file Housing Stability: Not on file PMH: Past Medical History: Diagnosis Date Abnormal Pap smear of cervix hx LEEP Asthma Body mass index (BMI) of 40.0 to 44.9 in adult ([facility]) 09/02/2020 Per Obesity protocol Cholecystitis Eczema Family history of breast cancer in mother 10/24/2012 Folliculitis H/O mammogram 2011 b/l & US--hx milk production Hirsutism Liver hemangioma 2010 stable on f/u (normal spontaneous vaginal delivery) 01/20/2010 Obesity, Class II, BMI 35-39.9, isolated (see actual BMI) 12/03/2011 PMDD (premenstrual dysphoric disorder) 09/12/2015 Routine general medical examination at a health care facility 12/03/2011 S/P bilateral breast reduction 12/2015 S/P cholecystectomy DIEGO (stress urinary incontinence, female) 11/11/2017 Toxic shock syndrome (TSS) (HCC) 15YO hosp for tampon Vitamin D deficiency 12/03/2011 Past Surgical History: Procedure Laterality Date , INDUCED BY D&C x1 COLONOSCOPY 2011 mild colitis? COLONOSCOPY, DIAGNOSTIC (RECTUM) 01/14/2022 diverticulosis, repeat 10 yrs / COLONOSCOPY FLEXIBLE PROXIMAL DIAGNOSTIC performed by Chirag Ravi MD at [facility]COPY [facility] COLPSCPY CERVIX W/LOOP ELECT DENTAL SURGERY PROCEDURE NEC EGD, FLEXIBLE, DIAGNOSTIC 03/23/2022 normal / ESOPHAGOGASTRODUODENOSCOPY (EGD), FLEXIBLE, TRANSORAL, DIAGNOSTIC performed by Sheela Lawrence DO at ENDOSCOPY [facility] LAPAROSCOPY; CHOLECYSTECTOMY 04/2010 MAMMOGRAM BREAST NEEDLE BIOPSY CORE LEFT Left 08/05/2015 Benign MISCELLANEOUS ORDER ([facility] ONLY) Left 08/05/2015 left breat biopsy REDUCTION OF BREAST Bilateral 01/06/2016 REDUCTION MAMMOPLASTY performed by Rusty Rios MD at OR [facility] [place] [place] Outpatient Medications Marked as Taking for the 03/21/23 encounter (Office Visit) with Josie Ariza CRNP Medication Sig Esomeprazole Magnesium 20 MG Oral Capsule Delayed [...] symptoms, may increase to 2 at bedtime Vitamin D (Cholecalciferol) 25 MCG (1000 UT) Oral Tablet Take 1 Tablet by mouth in the morning. With multivit with vit D for total daily dose of 2000 units vit D per day. Clindamycin Phosphate 1 % External Gel Apply twice daily to areas in groin creases as per instructions on checkout sheet Albuterol Sulfate HFA 108 (90 Base) MCG/ACT Inhalation Aerosol Solution Inhale 2 Puffs by mouth every 4 hours as needed for Cough, Shortness of Breath or Wheezing. Spiriva Respimat 2.5 MCG/ACT Inhalation Aerosol Solution (Tiotropium [place] Monohydrate) Inhale bymouth 2 Puffs in the morning. Levocetirizine Dihydrochloride 5 MG Oral Tablet Take [...] every 4 hours as needed for Pain. Review of patient's allergies indicates: Allergen Reactions Cat Dander Edema airway Dog Dander Edema airway Mites [Dust] Nasal congestion Molds & Smuts Nasal congestion Pollen Extract-Tree Extract [Pollen Extract] Stuffy nose Most Recent Immunizations Administered Date(s) Administered COVID-19 mRNA, LNP-s, No Preserve, 2-Dose Series (Moderna) 07/08/2020 COVID-19, mRNA, LNP-s, PF, Booster, 100mcg/0.5mg (Moderna) 04/07/2021 Covid-19, Mrna, Lnp-s, Pf, Bivalent, 30 Mcg, IM, 12 yrs and above (Pfizer) 06/08/2022 Pneumococcal Polysaccharide PPV23 (Pneumovax) 08/23/2014 SEASONAL INFLUENZA, PF, 6 M & Above, IM , (FLULAVAL or FLUZONE) 03/11/2022 Seasonal Influenza, Quadrivalent, No Preserve, IM 01/10/2017 Seasonal Influenza, Split, IIV3, With Preserve, Inj 01/28/2014 TDAP (age 10 and older)(Boostrix) 08/06/2013 Review of Systems: Physical Exam BP 128/68 (BP Site: Left Arm, BP Position: Sitting, BP Cuff Size: Large) | Pulse 79 | Temp 36.8 C(98.2 F) (Tympanic) | Resp 16 | Wt 120.6 kg (265 lb 12.8 oz) | SpO2 97% Comment: room air | BMI 45.60 kg/m | BSA 2.33 m Physical Exam Constitutional: Appearance: Normal appearance. HENT: Head: Normocephalic. Right Ear: Tympanic membrane, ear canal and external ear normal. Left Ear: Tympanic membrane, ear canal and external ear normal. Nose: No congestion. Mouth/Throat: Pharynx: No posterior oropharyngeal erythema. Cardiovascular: Rate and Rhythm: Normal rate and regular rhythm. Pulmonary: Effort: Pulmonary effort is normal. Breath sounds: Normal breath sounds. No decreased breath sounds, wheezing or rales. Musculoskeletal: Cervical back: Neck supple. Skin: General: Skin is warm. Neurological: Mental Status: She is alert and oriented to person, place, and time. Psychiatric: Mood and Affect: Mood normal. Assessment and Plan 1. Upper respiratory tract infection, unspecified type Suspect, Had GI symptoms initially 3 weeks ago Afebrile today, slightly better compared to 2 days ago 2. Subacute cough - Benzonatate 100 MG Oral Capsule; Take 1 Capsule by mouth 3 times a day as needed for Cough. Dispense: 50 Capsule; Refill: 0 3. Mild intermittent asthma without complication Lungs clear, O2 97% on RA Consider prednisone if CHESTER/SOB returns Wrap-Up Recommend supportive care including: Humidifier Rest Push fluids Recommend handwashing and covering cough Reviewed signs and symptoms in which to seek medical care I have advised the patient to call our office incase of any worsening or new symptoms. A total of 25 minutes were spent with the patient, more than half in [id number] explanation and discussion of the condition and treatment and answering questions. Josie Ariza, MSN, RN POOL [facility] documented in this encounter Nursing Notes * Phi Moses RN - 03/21/2023 9:23 AM EST Chief Complaint Patient presents with Cough Patient states she had cold symptoms about 3 weeks ago; states is now having productive cough Short of Breath Asthma documented in this encounter Plan of Treatment Upcoming Encounters Date Type Department Care Team (Late st Contact Info) Description 03/25/2023 11:30 AM EST Imaging Radiology [facility] 1st Floor, [address] [place] [id number] 03/25/2023 12:00 PM EST Imaging Radiology [facility] [address] [place] [id number] 03/28/2023 9:40 AM EST Office Visit Nutrition & Weight Management, [facility] [address] [place] [address] Lita Borges PA-C [address] [place] [address] 01/02/2024 8:30 AM EDT Telemedicine Endocrinology, [place] [address], [place] [id number] April Marinelli PA-C [address] [place] [address] Scheduled Procedures Name Priority Associated Diagnoses Date/Ti [...] 2022 06/08/2022, 04/07/2021, 07/08/2020, Additional history exists Influenza Vaccine (FLU shot) (#1) 2022 03/11/2022, 02/03/2021, 02/01/2020, Additional history exists DTaP,Tdap,and Td Vaccines (2 - Td or Tdap) 08/07/2023 08/06/2013 Depression Screening 02/16/2024 02/15/2023, 01/30/20 18 Mammogram 03/07/2024 03/07/2023, 11/0 11/2021, 03/02/2021, Additional history exists Diabetes Screening 10/14/2025 10/14/2022, 0 10/14/2022, 09/11/2021, Additional history exists Pap Smear 02/15/2026 02/15/2023, 10/2018, 01/29/2019, Additional history exists Lipid Panel 09/11/2026 09/11/2021, 100 12/2019, 07/13/2014 Cervical Cancer Screening 02/16/2028 HPV/Co-Test 02/16/2028 02/15/2023 Colonoscopy 01/15/2032 01/14/2022, 01/14/2022 Colorectal Cancer Screening 01/15/2032 GARDASIL-HPV IMMUNIZATION SERIES Aged Out No longer eligible based on patient's age to complete this topic MENINGOCOCCAL (MENACTRA/MENVEO) Aged Out No longer eligible based on patient's age to complete this topic documented as of this encounter Medical Devices Not on filedocumented as of this encounter Visit Diagnoses Diagnosis Upper respiratory tract infection, unspecified type- Primary Subacute cough Cough Mild intermittent asthma without complication Unspecified asthma documented in this encounter Advance Directives Latest Code Status on File Code Status Date Activated Date Inactivated Comments Full Code 01/06/2016 2:38 PM 01/07/2016 1:40 PM This order reflects the patients wishes and were consensually agreed upon. Question Answer Comments Discussion of Advance Directives occurred with: Not Discussed Care Teams Pneumatic Tester Relationship Specialty Start Date End Date Fortino Plunkett MD [address] [place] [id number] PCP - General Family Medicine 04/17/14 documented as of this encounter"
--- OUTSIDE RECORDS SUMMARY | 2023-09-04 18:18 | External Medical Summary | Summary of Care ---
Author Name Unknown Organization [facility] Address [address] [place] [address] Phone [phone] Care Team Providers Care Child Specialist Name Role Phone Fortino Plunkett MD Primary Care Provider + Reason for Visit * Reason Comments Acute Encounter Details Date Type Department Care Team (Late st Contact Info) Description 04/14/2023 2:[address] [facility] [address] [place] [address] Stefanie Madden MD [address] [place] [address] Exacerbation of asthma, unspecified asthma severity, unspecified whether persistent* Allergies Active Allergy Reactions Criticality Noted Date Comments Cat Dander Edema airway High 10/24/2012 Dog Dander Edema airway High 10/24/2012 Dust 10/24/2012 Nasal congestion Molds & Smuts 10/24/2012 Nasal congestion Pollen Extract 01/11/2022 Stuffy nose documented as of this encounter (statuses as of 04/14/2023) Medications Medication Sig Dispensed Refills Start Date [...] Respimat 2.5 MCG/ACT Inhalation Aerosol Solution (Tiotropium [place] Monohydrate) Inhale by mouth 2 Puffs in the morning. 12 g 3 2 Active Albuterol Sulfate HFA 108 (90 Base) [...] a week. 2 mL 0 3 Active Amoxicillin-Pot Clavulanate 875-125 MG Oral Tablet (Augmentin)Indicatio ns:Exacerbation of asthma, unspecified asthma severity, unspecified whether persistent Take 1 Tablet by mouth in the morning and 1 Tablet before bedtime. Do all this for 10 days. 20 Tablet 0 3 04/24/20 23 Active predniSONE 10 MG Oral Tablet (Deltasone)Indicatio ns:Exacerbation of asthma, unspecified asthma severity, unspecified whether persistent Take 5 tablets by mouth for 2 days, 4 tabs for 2 days, 3 tabs for 2 days, 2 tabs for 2 days 1 tab for 2 days 30 Tablet 0 3 Active predniSONE 10 MG Oral Tablet (Deltasone)Indicatio ns:Exacerbation of asthma, unspecified asthma severity, unspecified whether persistent Take 5 tablets by mouth for 2 days, 4 tabs for 2 days, 3 tabs for 2 days, 2 tabs for 2 days 1 tab for 2 days 30 Tablet 0 3 04/14/20 23 Discontinu ed(Refill) documented as of this encounter (statuses as of 04/14/2023) Active Problems Problem Noted Date Diagnosed Date [...] change. Morteza 1 Y 09/03 mammo in [place]--likely benign w/minor asym & few calc. US slight dilated ducts on left. Hx galactorrhea. Considering reduction mammoplasty Hx abnormal paps. Last couple WNL 08/04 TC 222, LDL 153, TG 155, HDL 42. CRP1, TSH WNL Gluc 80, Celiac and Vit D WNL Allergic rhinitis 12/03/2011 Liver hemangioma S/P cholecystectomy S/P bilateral breast reduction documented as of this encounter (statuses as of 04/14/2023) Resolved Problems Problem Noted Date Diagnosed Date [...] as of this encounter (statuses as of 04/14/2023) Immunizations Name Administration Dates Next Due COVID-19 [...] as of this encounter Progress Notes * Stefanie Madden MD - 04/14/2023 2:11 PM EST Patient location: HOME. I was in a hospital or clinic location. After connecting through [employer],patient was verified with two unique identifiers. 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 Methods to assure confidentiality were taken. Patient acknowledged consent and understanding of pr ivacy and security of the Telemedicine visit. The patient agreed to participate. Subjective Juana Teran is a 48 year old female HPI: Here for an acute visit for asthma symptoms " I have been sick on and off since January" Mid January , she increased her Advair use to twice daily then started regularly using her rescue inhaler. She subsequently tried a nebulizer which provided minimal relief but she still had " a lot of congestion" She then developed symptoms of cough, sinus congestion, nausea, and diarrhea that lasted for a weekand a half. She was seen at [facility] on 03/21 and was prescribed tussin then steroid taper for 10 days She transiently got better but feels her asthma symptoms have returned . She has occasional periodsof SOB where she cannot seem to catch her breath. She endorses sinus pressure/pain and a wet productive cough. Objective There were no vitals taken for this visit. There is no height or weight on file to calculate BMI. BP Readings from Last 3 Encounters: 03/28/23 132/76 03/21/23 128/68 02/15/23 118/60 Wt Readings from Last 3 Encounters: 03/28/23 118.6 kg (261 lb 6.4 oz) 03/21/23 120.6 kg (265 lb 12.8 oz) 03/10/23 117.5 kg (259 lb) Assessment and plan Exacerbation of asthma, unspecified asthma severity, unspecified whether persistent Will treat as asthma exacerbation . Add abx given likely sinusitis . Recommend urgent care evaluation if recurrent episodes of severe SOB - Amoxicillin-Pot Clavulanate 875-125 MG Oral Tablet (Augmentin); Take 1 Tablet by mouth in the morning and 1 Tablet before bedtime. Do all this for 10 days. - predniSONE 10 MG Oral Tablet (Deltasone); Take 5 tablets by mouth for 2 days, 4 tabs for 2 days, 3 tabs for 2 days, 2 tabs for 2 days 1 tab for 2 days Follow up Follow Up: Return if symptoms worsen or fail to improve. Total time today including reviewing chart before the visit, pertinent labs, imaging reports, face to face time, and documentation time was 30 minutes. The above was discussed and understanding was expressed. Stefanie Madden MD [facility] [address] [id number] documented in this encounter Plan of Treatment Upcoming Encounters Date Type Department Care Team ([facility] st Contact Info) Description 06/15/2023 10:00 AM EST PulmDiagnostic Sleep Lab Kalee Antunez [address] [place] [address] [place], Sleep Med Home Study [place] [address] [place] [address] 09/14/2023 11:00 AM EDT Office Visit Nutrition & Weight Management, [facility] [address] [place] [address] Lita Borges PA-C [address] [place] [address] 01/02/2024 8:30 AM EDT Telemedicine Endocrinology, [place] [address] [place] [address] April Marinelli PA-C [address], [place] [phone] Scheduled Procedures Name Priority Associated Diagnoses Date/Ti [...] as of this encounter Visit Diagnoses Diagnosis Exacerbation of asthma, unspecified asthma severity, unspecified whether persistent- Primary documented in this encounter Advance Directives Latest Code Status on File Code Status Date Activated Date Inactivated Comments Full Code 01/06/2016 2:38 PM 01/07/2016 1:40 PM This order reflects the patients wishes and were consensually agreed upon. Question Answer Comments Discussion of Advance Directives occurred with: Not Discussed Care Teams Child Specialist Relationship Specialty Start Date End Date Fortino Plunkett MD [address] [place] [address] PCP - General Family Medicine 04/17/14 documented as of this encounter
--- OUTSIDE RECORDS SUMMARY | 2023-09-04 18:18 | External Medical Summary | Summary of Care ---
Author Name Unknown Organization [facility] Address [address] [place] [address] Phone [phone] Care Team Providers Care Air Analysis Technician Name Role Phone Fortino Plunkett MD Primary Care Provider + Encounter Details Date Type Department Care Team (Late st Contact Info) Description 2023 8:20 AM EST Immunization Pediatrics [facility] [address] [facility] [place] [address] Gw, Flu Shot Clinic Pediatric[facility] [address] [place] [address] Arrived Allergies Active Allergy Reactions Criticality Noted Date Comments Cat Dander Edema airway High 10/24/2012 Dog Dander Edema airway High 10/24/2012 Dust 10/24/2012 Nasal congestion Molds & Smuts 10/24/2012 Nasal congestion Pollen Extract 01/11/2022 Stuffy nose documented as of this encounter (statuses as of 2023) Medications Medication Sig Dispensed Refills Start Date [...] Respimat 2.5 MCG/ACT Inhalation Aerosol Solution (Tiotropium [place] Monohydrate) Inhale by mouth 2 Puffs in [...] for Cough. 50 Capsule 0 03/21/2023 Active predniSONE 10 MG Oral Tablet (Deltasone)Indication s:Exacerbation of asthma, unspecified asthma severity, unspecified whether persistent Take 5 tablets by mouth for 2 days, 4 tabs for 2 days, 3 tabs for 2 days, 2 tabs for 2 days 1 tab for 2 days 30 Tablet 0 03/23/2023 Active Wegovy 0.25 MG/0.5ML Subcutaneous Solution Auto-injector (Semaglutide-Weight Management)Indication s:Morbid obesity due to excess calories (HCC) Inject 0.25 mg under the skin once a week. 2 mL 0 03/28/2023 Active documented as of this encounter (statuses as of 2023) Active Problems Problem Noted Date Diagnosed Date [...] as of this encounter (statuses as of 2023) Resolved Problems Problem Noted Date Diagnosed Date [...] as of this encounter (statuses as of 2023) Immunizations Name Administration Dates Next Due COVID-19 [...] EDT Office Visit Nutrition & Weight Management, [facility] [address] [place] [address] Lita Borges PA-C [address] [place] [address] 01/02/2024 8:30 AM EDT Telemedicine Endocrinology, [place] [address] [place] [address] April Marinelli PA-C [address] [place] [address] Scheduled Procedures Name Priority Associated Diagnoses Date/Ti [...] Directives occurred with: Not Discussed Care Teams Air Analysis Technician Relationship Specialty Start Date End Date Fortino Plunkett MD [address] [facility] [place] [address] PCP - General Family Medicine 04/17/14 documented as of this encounter
--- OUTSIDE RECORDS SUMMARY | 2023-09-04 18:18 | External Medical Summary | Summary of Care ---
Author Name Unknown Organization [facility] Address [address] [place] [address] Phone [phone] Care Team Providers Care Retarder Operator Name Role Phone Fortino Plunkett MD Primary Care Provider + Reason for Visit * Reason Comments Enlarged Tonsils * Evaluate & Treat - Unlimited Visits (Within 10 days (routine)) - Pending Review Specialty Diagnoses / Procedures Referred By Collin jacome Referred To Contact Otolaryngology Diagnoses Snoring Janki Adams CRNP [address] [place] [address] Referral ID Status Reason Start Date Expiration Date Visits Requested Visits Authorized [id number] Pending Review Specialty Services Required 12/09/[phone] Encounter Details Date Type Department Care Team (Late st Contact Info) Description 03/10/2023 9:00 AM EST Office Visit Otolaryngology [facility] [address] [place] [address] Fiona Jeong PA-C [address] [place] [address] Snoring [R06.83]* Allergies Active Allergy Reactions Criticality Noted Date Comments Cat Dander Edema airway High 10/24/2012 Dog Dander Edema airway High 10/24/2012 Dust 10/24/2012 Nasal congestion Molds & Smuts 10/24/2012 Nasal congestion Pollen Extract 01/11/2022 Stuffy nose documented as of this encounter (statuses as of 03/10/2023) Medications Medication Sig Dispensed Refills Start Date [...] Respimat 2.5 MCG/ACT Inhalation Aerosol Solution (Tiotropium [place] Monohydrate) Inhale by mouth 2 Puffs in [...] BEDTIME. 90 Tablet 3 02/23/2023 4 Active documented as of this encounter (statuses as of 03/10/2023) Active Problems Problem Noted Date Diagnosed Date [...] as of this encounter (statuses as of 03/10/2023) Resolved Problems Problem Noted Date Diagnosed Date [...] as of this encounter (statuses as of 03/10/2023) Immunizations Name Administration Dates Next Due COVID-19 [...] Sign Reading Time Taken Comments Blood Pressure - - Pulse - - Temperature 36.8 C (98.3 F) 03/10/2023 8:59 AM ES T Respiratory Rate - - Oxygen Saturation - - Inhaled Oxygen Concentration - - Weight 117.5 kg (259 lb) 03/10/2023 8:59 AM EST Height 162.6 cm (5' 4.02") 03/10/2023 8:59 AM ES T Body Mass Index 44.44 03/10/2023 8:59 AM EST documented in this encounter Progress Notes * Fiona Jeong PA-C - 03/10/2023 9:19 AM EST 03/10/2023 Nursing Notes: Berna Bose LPN 03/10/23 0900 Signed Juana Teran is a 47 year old female who presents today for snoring. Patient reports: Sleep Apnea: No Sleep Study: Yes Seen Sleep Medicine: Yes Nasal congestion/obstruction: Yes Nasal/ Facial Trauma: Yes Current treatment/CPAP: No Recurrent sore throat: Yes Pt reports she has had a sleep study done, she was told she dos not have apnea. Pt states she has always had enlarged tonsils and has always snored. Pt states she wakes up with nasal congestion everyday and she reports she does have allergies. HISTORY OF PRESENT ILLNESS This 47 year old female is seen at the request of Fortino Plunkett MD for the initial evaluation of snoring and tonsillar hypertrophy Patient reports she is undergone multiple sleep studies in-lab and at home. He is also been inconclusive and in-lab was not accurate as she was sleeping in an upright position. However she was havingfragmented sleep and overall poor sleep quality with daytime fatigue. She has obtained a mandibulardental device and has been wearing for approximately the past 6 months with improvement in sleep josh lity. She does report significant snoring as reported by her . This has improved mildly withthe dental device and using breathe right strips. The snoring is very bothersome to her . She is been told in the past she has large tonsils. Denies recent recurrent strep or tonsillitis. Past Medical History: Diagnosis Date Abnormal Pap [...] performed by Chirag Ravi MD at ENDOSCOPY [facility] [address] COLPSCPY CERVIX W/LOOP ELECT DENTAL SURGERY PROCEDURE NEC EGD, FLEXIBLE, DIAGNOSTIC 03/23/2022 normal / ESOPHAGOGASTRODUODENOSCOPY (EGD), FLEXIBLE, TRANSORAL, DIAGNOSTIC performed by Sheela Lawrence DO at ENDOSCOPY [facility] [address] LAPAROSCOPY; CHOLECYSTECTOMY 04/2010 MAMMOGRAM BREAST NEEDLE BIOPSY CORE LEFT Left 08/05/2015 Benign MISCELLANEOUS ORDER ([facility] ONLY) Left 08/05/2015 left breat biopsy REDUCTION OF BREAST Bilateral 01/06/2016 REDUCTION MAMMOPLASTY performed by Rusty Rios MD [place] [facility] Medications Current Outpatient Medications Medication Sig Dispense Refill ibuprofen (MOTRIN) 200 MG Tablet Take 1 Tablet by mouth every 4 hours as needed for Pain. albuterol-ipratropium (DUONEB) 2.5-0.5 MG/3ML nebulizer solution Inhale 3 mL via nebulizer 4 times a day. 25 Vial 0 metroNIDAZOLE 1 % External Gel (METROGEL) Apply topically to affected area 2 times a day. To affected area. 60 g 11 Levocetirizine Dihydrochloride 5 MG Oral Tablet Take 1 tablet daily each evening to prevent allergyrelated symptoms (Patient taking differently: Take 1 Tablet by mouth every evening. Take 1 tablet daily each evening to prevent allergy related symptoms) Spiriva Respimat 2.5 MCG/ACT Inhalation Aerosol Solution (Tiotropium [place] Monohydrate) Inhale bymouth 2 Puffs in the morning. 12 g 3 Albuterol Sulfate HFA 108 (90 Base) MCG/ACT Inhalation Aerosol Solution Inhale 2 Puffs by mouth every 4 hours as needed for Cough, Shortness of Breath or Wheezing. 8.5 g 3 Famotidine 20 MG Oral Tablet (Pepcid) Take 1 Tablet by mouth in the morning and 1 Tablet before bedtime. (Patient not taking: Reported on 02/15/2023) 60 Tablet 11 Clindamycin Phosphate 1 % External Gel Apply twice daily to areas in groin creases as per instructions on checkout sheet 60 g 2 Doxycycline Monohydrate 100 MG Oral Capsule Take 1 capsule by mouth daily with or without food 60 Capsule 3 Gabapentin 100 MG Oral Capsule (Neurontin) take 1 capsule by mouth at bedtime for 3 nights, if no relief for menopausal symptoms, may increase to 2 at bedtime 60 Capsule 11 Multivitamin/Extra Vitamin D3 Oral Tablet Chewable Take 1 Tablet by mouth daily. Vitamin D (Cholecalciferol) 25 MCG (1000 UT) Oral Tablet Take 1 Tablet by mouth in the morning. With multivit with vit D for total daily dose of 2000 units vit D per day. 100 Tablet 11 Vitamin B-12 1000 MCG Oral Tablet (Cyanocobalamin) Take 1 Tablet by mouth in the morning. Please purchase without a prescription and take one daily. 100 Tablet 3 Fluticasone-Salmeterol 500-50 MCG/ACT Inhalation Aerosol Powder Breath Activated (Advair Diskus) INHALE ONE PUFF BY MOUTH TWICE A DAY 60 Each 5 Montelukast Sodium 10 MG Oral Tablet (Singulair) TAKE 1 TABLET BY MOUTH AT BEDTIME. 90 Tablet 3 No current facility-administered medications for this visit. Allergies Review of patient's allergies indicates: Allergen Reactions Cat Dander Edema airway Dog Dander Edema airway Mites [Dust] Nasal congestion Molds & Smuts Nasal congestion Pollen Extract-Tree Extract [Pollen Extract] Stuffy nose Family History Family History Problem Relation Age of Onset Osteoarthritis Mother Breast Cancer Mother 49 at 51 Eczema Mother Diabetes Father Heart attack Father Skin cancer Father not melanoma Other (High Lipids) Sister Cancer Grandmother (Maternal) 90 renal CA- Osteoarthritis Grandmother (Maternal) Lymphoma Grandfather (Maternal) 60 Leukemia Grandmother (Paternal) 80 Heart Disorder Grandfather (Paternal) 40 years later-smoked Allergies Aunt (Maternal) Hay fever, environmental allergies Asthma Uncle (Maternal) Environmental allergies Allergies Uncle (Maternal) Allergies Uncle (Maternal) Hayfever Social History Social History Tobacco Use Smoking status: Never Smokeless tobacco: Never Tobacco comments: No passive smoke exposures Substance Use Topics Alcohol use: Yes Comment: occasional Vaping/E-Cigarette Use Vaping/E-Cigarette Use Never User Vaping/E-Cigarette Substances Vaping/E-Cigarette Devices REVIEW OF SYSTEMS Negative for constitutional, heart, lung, liver, kidney, digestive, hematologic, neurologic, rheumatologic, or endocrine complaints except as per history of present illness and past medical history. PHYSICAL EXAMINATION: Temp 36.8 C (98.3 F) (Tympanic) | Ht 1.626 m (5' 4.02") | Wt 117.5 kg (259 lb) | LMP 02/09/2023(Exact Date) | BMI 44.44 kg/m | BSA 2.3 m Physical Examination: General: this is a healthy appearing female who appears her stated age. The patient is alert and appropriately verbally conversant without hoarseness. Face: The face was inspected and no cutaneous masses or lesions were visualized. There was no erythema or edema noted. Facial movement was symmetric without weakness. No skin lesions were detected. There was no sinus tenderness elicited. The parotid and submandibular glands were normal to palpation. rmal, no masses, polyps, or mucopus. Oral Cavity: Examination of the oral cavity revealed no mass lesions nor infection. The palate was noted to be intact without evidence of clefting. The tongue exhibited normal mobility. Mucosa was moist without lesion. The lips were free of lesion. Gums were free of inflammation. Dentition: Unremarkable Oropharynx: The oral pharynx was free of mass lesion or mucosal abnormality. The palate was noted to be without lesions. The uvula was normal appearing. The tonsils were 1.5+/4 Nasopharynx/hypopharynx/larynx: See procedure documentation Ears: Examination of the ears revealed that the auricles were normally formed with no lesions. The external auditory canals were cleaned of any obstructing cerumen. The tympanic membranes were intactand freely mobile to pneumatoscopy without perforation or significant retraction pockets. Neck: Visualization and palpation of the neck revealed no mass lesions, no thyromegaly or thyroid masses. No skin lesions or inflammatory processes were detected. The cervical musculature was normal to palpation. Lymphatics (cervical): There were no palpable lymph nodes in the posterior triangle, submandibular triangle, jugulodigastric region, or central neck PROCEDURE NOTE Because of inability to cooperate with the mirror exam or in order to get a better assessment of the larynx, fiberoptic examination of the larynx was performed. The nose was first topically decongested with topical oxymetazoline 0.05% spray and topically anesthetized with topical Lidocaine 4% spray. The patient tolerated the procedure well. Patient should refrain from eating or drinking for 30-45minutes due to anesthesia of the pharynx and possible interference with swallowing. Fiberoptic examination revealed no mass lesions. Vocal cord mobility was normal without paralysis or paresis. No vocal cord masses were visualized. The pyriform sinuses were free of any mass lesions. There was no significant edema or erythema of the larynx. Encounter Diagnoses Name Primary? Snoring [R06.83] Yes Plan: Findings of examination and recommendations were discussed with the patient. Discussed the tonsils are not enlarged. Also discussed that snoring is not improved indication for tonsillectomy. Recommend that she have repeat in-lab sleep study which she states she plans on talking to her primarycare provider about. Fiona Jeong PA-C 03/10/2023 10:44 AM documented in this encounter Nursing Notes * Berna Bose LPN - 03/10/2023 8:54 AM EST Juana Teran is a 47 year old female who presents today for snoring. Patient reports: Sleep Apnea: No Sleep Study: Yes Seen Sleep Medicine: Yes Nasal congestion/obstruction: Yes Nasal/ Facial Trauma: Yes Current treatment/CPAP: No Recurrent sore throat: Yes Pt reports she has had a sleep study done, she was told she dos not have apnea. Pt states she has always had enlarged tonsils and has always snored. Pt states she wakes up with nasal congestion everyday and she reports she does have allergies. documented in this encounter Plan of Treatment Upcoming Encounters Date Type Department Care Team (Late st Contact Info) Description 03/25/2023 11:30 AM EST Imaging Radiology [facility] [place] [address] [facility] [place] [address] 03/25/2023 12:00 PM EST Imaging Radiology [facility] [address] [facility] [place] [address] 03/28/2023 9:40 AM EST Office Visit Nutrition & Weight Management, [facility] [address] [facility] [place] [address] Lita Borges PA-C [address] [facility] [place] [address] 01/02/2024 8:30 AM EDT Telemedicine Endocrinology, [place] [address] [place] [address] April Marinelli PA-C [address] [place] [address] Scheduled Procedures Name Priority Associated Diagnoses Date/Ti me COLONOSCOPY FLEXIBLE PROXIMAL DIAGNOSTIC Recall Screen for colon cancer Scheduled Referrals Name Type Priority Associated Diagnoses Order Schedule OTOLARYNGOLOGY REFERRAL OP Referral Within 10 days (routine) Snoring Ordered: 12/09/2022 Health Maintenance Due Date Last Done Comments [...] 02/16/2024 02/15/2023, 01/30/20 18 Mammogram 03/07/2024 03/07/2023, 110 11/2021, 03/02/2021, Additional history exists Diabetes Screening [...] as of this encounter Visit Diagnoses Diagnosis Snoring [R06.83]- Primary Other dyspnea and respiratory abnormality documented in this encounter Advance Directives Latest Code Status on File Code Status Date Activated Date Inactivated Comments Full Code 01/06/2016 2:38 PM 01/07/2016 1:40 PM This order reflects the patients wishes and were consensually agreed upon. Question Answer Comments Discussion of Advance Directives occurred with: Not Discussed Care Teams Retarder Operator Relationship Specialty Start Date End Date Fortino Plunkett MD [address] [place] [address] PCP - General Family Medicine 04/17/14 documented as of this encounter
--- OUTSIDE RECORDS SUMMARY | 2023-09-04 18:18 | External Medical Summary | Summary of Care ---
Author Name Unknown Organization [facility] Address [address] [place] [address] Phone [phone] Care Team Providers Care Clinical Education Consultant Name Role Phone Fortino Plunkett MD Primary Care Provider + Reason for Visit * Reason Onset Date Comments Scheduling 09/14/2022 HST Encounter Details Date Type Department Care Team (Late st Contact Info) Description 09/14/2022 Telephone Sleep Lab, [facility] [address] [place], [place] [id number] [facility], Sleep Med Home Study [address], [place] [address] Scheduling (HST) Allergies Active Allergy Reactions Criticality Noted Date Comments Cat Dander Edema airway High 10/24/2012 Dog Dander Edema airway High 10/24/2012 Dust 10/24/2012 Nasal congestion Molds & Smuts 10/24/2012 Nasal congestion Pollen Extract 01/11/2022 Stuffy nose documented as of this encounter (statuses as of 04/22/2023) Medications Medication Sig Dispensed Refills Start Date [...] Respimat 2.5 MCG/ACT Inhalation Aerosol Solution (Tiotropium [place] Monohydrate) Inhale by mouth 2 Puffs in [...] checkout sheet 60 g 2 3 Active Rizatriptan Benzoate 5 MG Oral Tablet DisintegratingIndica tions:Migraine with aura and without status migrainosus, not intractable Take 1 Tab by mouth as needed for Migraine. at onset of headache, may repeat every 2 hours. No more than 3 pills in 24 hours 20 Tab 3 0 02/16/20 23 Discontinu ed(Medicat ion List Clean Up) Spacer/Aero-Holding Chambers Device Use with inhaler. 1 Each 0 1 02/16/20 23 Discontinu ed(Medicat ion List Clean Up) Fluticasone-Salmeter ol 500-50 MCG/ACT Inhalation Aerosol Powder Breath Activated (Advair Diskus)Indications:S evere persistent asthma without complication INHALE ONE PUFF BY MOUTH TWICE A DAY 60 Each 5 2 02/01/20 23 Discontinu ed(Refill) Montelukast Sodium 10 MG Oral Tablet (Singulair)Indicatio ns:Mild intermittent asthma without complication,Allergi c rhinitis due to animal hair and dander TAKE 1 TABLET BY MOUTH AT BEDTIME. 90 Tablet 3 2 02/23/20 Discontinu ed(Refill) Famotidine 20 MG Oral Tablet (Pepcid) Take 1 Tablet by mouth in the morning and 1 Tablet before bedtime. 60 Tablet 11 3 03/28/20 23 Discontinu ed(Medicat ion List Clean Up) Doxycycline Monohydrate 100 MG Oral CapsuleIndications:F olliculitis,Furuncul osis Take 1 capsule twice daily with or without food 60 Capsule 2 3 10/21/19 Discontinu ed(Medicat ion/Dose Changed) Gabapentin 100 MG Oral Capsule (Neurontin) take 1 capsule by mouth at bedtime for 3 nights, if no relief for menopausal symptoms, may increase to 2 at bedtime 60 Capsule 2 3 12/23/19 Discontinu ed(Refill) documented as of this encounter (statuses as of 04/22/2023) Active Problems Problem Noted Date Diagnosed Date [...] as of this encounter (statuses as of 04/22/2023) Resolved Problems Problem Noted Date Diagnosed Date [...] as of this encounter (statuses as of 04/22/2023) Immunizations Name Administration Dates Next Due COVID-19 [...] encounter Miscellaneous Notes * Telephone Encounter - Yareli Burgess OSA - 04/22/2023 3:37 PM EST Pt is scheduled for June 15 * Telephone Encounter - Marely Mariscal OSA - 09/14/2022 11:57 AM EDT Order in Epic from April Marinelli PA-C for HST. Ins auth is not required. Dynamite Packing Machine Feeder approval is not required. Forwarded for review. Thank you. documented in this encounter Plan of Treatment Upcoming Encounters Date Type Department Care Team (Late st Contact Info) Description 06/15/2023 10:00 AM EST PulmDiagnostic Sleep Lab [facility] [address] [facility] [place] [address] [facility], Sleep Med Home Study [facility] [address] [place] [address] 09/14/2023 11:00 AM EDT Office Visit Nutrition & Weight Management, [facility] [address] [place] [address] Lita Borges PA-C [address] [place] [address] 01/02/2024 8:30 AM EDT Telemedicine Endocrinology, [place] [address] [place] [address] April Marinelli PA-C [address] [place] [address] Scheduled Procedures Name Priority Associated Diagnoses Date/Ti [...] Directives occurred with: Not Discussed Care Teams Clinical Education Consultant Relationship Specialty Start Date End Date Fortino Plunkett MD [address] [place] [address] PCP - General Family Medicine 04/17/14 documented as of this encounter
--- OUTSIDE RECORDS SUMMARY | 2023-09-04 18:18 | External Medical Summary | Summary of Care ---
Author Name Unknown Organization [facility] Address [address] [place] [address] Phone [phone] Care Team Providers Care Business System Manager Name Role Phone Fortino Plunkett MD Primary Care Provider + Reason for Visit * Reason Comments NEW PATIENT * Evaluate & Treat - Unlimited Visits (Within 10 days (routine)) - Pending Review Specialty Diagnoses / Procedures Referred By Collin jacome Referred To Contact Sleep Medicine / Sleep Disorders Diagnoses Disordered sleep Lita Borges PA-C [address] [place] [address] Referral ID Status Reason Start Date Expiration Date Visits Requested Visits Authorized [id number] Pending Review Specialty Services Required 03/28/2023 2 2 Encounter Details Date Type Department Care Team (Late st Contact Info) Description 03/29/2023 9:20 AM EST Telemedicine Sleep Disorders Ctr [facility] [address] [phone] Olga Pruitt DO [address] [address] Snoring*; Fatigue, unspecified type; Sleep apnea, unspecified type Allergies Active Allergy Reactions Criticality Noted Date Comments Cat Dander Edema airway High 10/24/2012 Dog Dander Edema airway High 10/24/2012 Dust 10/24/2012 Nasal congestion Molds & Smuts 10/24/2012 Nasal congestion Pollen Extract 01/11/2022 Stuffy nose documented as of this encounter (statuses as of 04/01/2023) Medications Medication Sig Dispensed Refills Start Date [...] Respimat 2.5 MCG/ACT Inhalation Aerosol Solution (Tiotropium [place] Monohydrate) Inhale by mouth 2 Puffs in [...] as of this encounter (statuses as of 04/01/2023) Active Problems Problem Noted Date Diagnosed Date [...] change. Morteza 1 Y 09/03 mammo in [place]--likely benign w/minor asym & few calc. US slight dilated ducts on left. Hx galactorrhea. Considering reduction mammoplasty Hx abnormal paps. Last couple WNL 08/04 TC 222, LDL 153, TG 155, HDL 42. CRP1, TSH WNL Gluc 80, Celiac and Vit D WNL Allergic rhinitis 12/03/2011 Liver hemangioma S/P cholecystectomy S/P bilateral breast reduction documented as of this encounter (statuses as of 04/01/2023) Resolved Problems Problem Noted Date Diagnosed Date [...] as of this encounter (statuses as of 04/01/2023) Immunizations Name Administration Dates Next Due COVID-19 [...] Pressure - - Pulse - - Temperature - - Respiratory Rate - - Oxygen Saturation - - Inhaled Oxygen Concentration - - Weight - - Height 162.6 cm (5' 4") 03/28/2023 2:09 PM EST Body Mass Index - - documented in this encounter Patient Instructions * Patient Instructions* Olga Pruitt DO - 03/29/2023 10:00 AM EST OBSTRUCTIVE SLEEP APNEA We are concerned that you may have obstructive sleep apnea. Obstructive sleep apnea is when someonehas difficulties with breathing only during sleep. This typically happens without the patient beingaware they are having breathing issues. Obstructive sleep apnea is very common. It can be seen in kids and adults. It can cause symptoms of excessive daytime sleepiness, fatigue, morning headaches, and poor memory and cognition. It can also lead to difficulties at work or school and motor vehicle accidents. If left untreated, it puts people at risk for heart attacks, strokes, and diabetes. We diagnose obstructive sleep apnea with either an in-lab sleep study or a home sleep apnea test. More information can be obtained at: [email or web address] documented in this encounter Progress Notes * Olga Pruitt DO - 03/29/2023 9:30 AM EST Sleep Medicine Evaluation [facility] Perez[address] [place] [address] Patient location: HOME. I was in a hospital or clinic location. After connecting through televideo,patient was verified with two unique identifiers. Patient (or authorized legal off premise service representative) was then informed that this was a Telemedicine visit and being conducted confidentially over secure lines. Methods to assure confidentiality were taken. Patient acknowledged consent and understanding of pr ivacy and security of the Telemedicine visit. The patient agreed to participate. Time dedicated to today's appointment: 40 minutes Consultation was requested by: Lita Borges PA-C for: evaluate for TERRI; inconclusive HST and a copy of this report is being sent to the provider electronically. Relevant available records reviewed. HPI: Juana Teran is a(n) 47 year old female presenting for evaluation of possible sleep apnea. Prior PSG 01/12/2018: AHI 2.2. She had elevated HOB at 45 degree angle that night. HST 12/31/22: DICK 4.7, SpO2 mark 88%, time <89% 0 min. She started the night without the snore guard, but put it in partway through the night. The monitor was beeping/blinking, the monitor was not staying flat on her chest. It was not a good night's sleep. Snoring louder, per her . She tried an OTC snore guard, which has improved snoring and sleepquality. However, dentist is concerned about jaw/teeth movement. She sleeps on her side now because snoring and choking awakenings were worse when on her back. She takes gabapentin for night sweats and sleep, which seems helpful. She saw ENT and was told her throat was more narrow, but they did not feel tonsils/adenoids were a significant concern. Patient reports a typical bedtime of 9:30 PM. She reads on her Otilia, closes eyes around 10 PM. It takes varying times to fall asleep. Sometimes right away; occasionally hours. Often 15-30 minutes. Patient awakens 1-2 times overnight to use the bathroom, otherwise sleeping well. She does toss and turn and get hot flashes, which can interrupt her sleep. Patient awakens for the day at 7 AM or so, feeling sometimes still tired, usually a little groggy upon waking, but after about 10 minutes she is able to get up and moving. Patient does often feel sleepy or tired during the day. Some nights her smart watch shows only 30 minutes of REM sleep. Patient does take naps, about twice a week. Limits time to 30 minutes or less typically. Patient does use caffeine, up to 1-2 cups per day, avoids later in the day. The patient reports having ("+" indicates reports, "-" indicates denies): + Snoring + Observed apneas: choking or catching breathing per rarely Choking/gasping awakenings + Mouth breathing (allergy/sinus issues) rarely Morning headaches Mood changes, memory loss. Restless Legs Syndrome Symptoms ("+" indicates reports, "-" indicates denies): Occasionally legs feel itching before getting to bed, when very tired. Never keeping her awake at night. - Urge to move legs at night Parasomnias Symptoms ("+" indicates reports, "-" indicates denies): - Sleepwalking - Dream-enactment She had very bad nightmares as a child. Once at 3-4 years old she was trying to climb up the wall while trying to escape from something in a dream. + sleep-talking. Excessive Daytime Sleepiness: Lawrence Sleepiness Scale 7 Modified F.O.S.Q. 31 - Drowsy driving (very rarely if very tired) Lawrence Sleepiness Scale Question 03/28/2023 2:11 PM EST - Filed by Bailee Menezes LPN What is the chance you will doze off in the following situation? Sitting and reading Slight chance of dozing Watching TV Moderate chance of dozing Sitting inactive in a public place, such as a theater or meeting No chance of dozing As a passenger in a car for an hour without a break No chance of dozing Lying down to rest in the afternoon when circumstances permit High chance of dozing When sitting and talking to someone No chance of dozing When sitting quietly after lunch without alcohol Slight chance of dozing In a car, while stopped for a few minutes in traffic No chance of dozing Score (range: 0 - 24) 7 Functional Outcomes Of Sleep Question 03/28/2023 2:13 PM EST - Filed by Bailee Menezes LPN Please complete the following questions. Do you have difficulty concentrating because you are sleepy or tired? Yes, a little Do you have difficulty remembering things because you are sleepy or tired? Yes, a little Do you have difficulty operating a motor vehicle for short distances (less than 100 miles) because you become sleepy? No Do you have difficulty operating a motor vehicle for long distances (more than 100 miles) because you become sleepy? No Do you have difficulty visiting family or friends in their home because you become sleepy or tired?No Has your relationship with family, friends, or work colleagues been affected because you are sleepyor tired? Yes, a little Do you have difficulty watching a movie or video because you become sleepy or tired? Yes, moderate Do you have difficulty being as active as you want to be in the evening because you are tired or sleepy? Yes, moderate Do you have difficulty being as active as you want to be in the morning because you are tired or sleepy? Yes, a little Has your mood been affected because you are sleepy or tired? Yes, a little Score (range: 10 - 40) 31 Sleep hygiene: Bedroom dark? yes Cool room. PMH: Past Medical History: Diagnosis Date Abnormal Pap smear of cervix hx LEEP Asthma Body mass index (BMI) of 40.0 to 44.9 in adult ([facility]) 09/02/2020 Per Obesity protocol Cholecystitis Eczema [...] 11/11/2017 Toxic shock syndrome (TSS) ([facility]) 15YO hosp for tampon Vitamin D deficiency 12/03/2011 Past Surgical History: Procedure Laterality Date , INDUCED BY D&C x1 COLONOSCOPY 2011 mild colitis? COLONOSCOPY, DIAGNOSTIC (RECTUM) 01/14/2022 diverticulosis, repeat 10 yrs / COLONOSCOPY FLEXIBLE PROXIMAL DIAGNOSTIC performed by Chirag Ravi MD at ENDOSCOPY [facility] COLPSCPY CERVIX W/LOOP ELECT DENTAL SURGERY PROCEDURE NEC EGD, FLEXIBLE, DIAGNOSTIC 03/23/2022 normal / ESOPHAGOGASTRODUODENOSCOPY (EGD), FLEXIBLE, TRANSORAL, DIAGNOSTIC performed by Sheela Lawrence DO at ENDOSCOPY [facility] LAPAROSCOPY; CHOLECYSTECTOMY 04/2010 MAMMOGRAM BREAST NEEDLE BIOPSY CORE LEFT Left 08/05/2015 Benign MISCELLANEOUS ORDER ([facility] ONLY) Left 08/05/2015 left breat biopsy REDUCTION OF BREAST Bilateral 01/06/2016 REDUCTION MAMMOPLASTY performed by Rusty Rios MD at [facility] ALLERGIES: Review of patient's allergies indicates: Allergen Reactions Cat Dander Edema airway Dog Dander Edema airway Mites [Dust] Nasal congestion Molds & Smuts Nasal congestion Pollen Extract-Tree Extract [Pollen Extract] Stuffy nose MEDS: Outpatient Medications Marked as Taking for the 03/29/23 encounter (Telemedicine) with Olga Pruitt, Medication Sig Wegovy 0.25 MG/0.5ML Subcutaneous Solution Auto-injector (Semaglutide-Weight Management) Inject 0.25 mg under the skin once a week. predniSONE 10 MG Oral Tablet (Deltasone) Take 5 tablets by mouth for 2 days, 4 tabs for 2 days, 3 tabs for 2 days, 2 tabs for 2 days 1 tab for 2 days Benzonatate 100 MG Oral Capsule Take 1 Capsule by mouth 3 times a day as needed for Cough. Esomeprazole Magnesium 20 MG Oral Capsule Delayed [...] Respimat 2.5 MCG/ACT Inhalation Aerosol Solution (Tiotropium [place] Monohydrate) Inhale bymouth 2 Puffs in the [...] every 4 hours as needed for Pain. Social hx: Tobacco Use: Low Risk (03/29/2023) Patient History Smoking Tobacco Use: Never Smokeless Tobacco Use: Never Passive Exposure: Not on file PE: VITAL SIGNS: Filed Vitals: 03/28/23 1409 Height: 1.626 m (5' 4") Body mass index is 44.87 kg/m. PE limited due to telemedicine. Patient does not appear to be in distress. No rash on visible skin on face. Breathing does not appear to be labored. No audible stridor. Speech is clear and appropriate. Appropriate affect. IMPRESSION/RECOMMENDATIONS: Snoring, witnessed apneas, fatigue - suspect TERRI - STOP-BANG 3 (snoring, tired, and BMI > 35) - Discussed the pathophysiology, implications on short- and long-term health, diagnostic evaluation, and likely treatment options of TERRI - discussed further testing with PSG vs WatchPAT. Patient prefers to start with WatchPAT. - Schedule a WatchPAT home sleep apnea test to evaluate for TERRI. (Plan to do without the snore guard device, as her dentist did not feel that would be a good long-term option for her due to jaw/teethmovement.) Discussed that if the HSAT does not show TERRI, we will likely recommend in-lab PSG. - Avoid driving when sleepy/drowsy. - Discussed the relationship between weight and sleep apnea. Sleep apnea may improve with weight loss. Please verify the following with the patient before ordering WatchPAT study: Does patient have Wifi? Yes Does patient have smart phone? Yes Do they have acrylic nails or nail burmese? Yes: please remove for duration of the study Do they have a pacemaker? No Are they on alphablockers? Please list which med is the alphablocker: no What is the phone number of the cell phone they will be using? [phone] Follow-up: Return will send MyG with WatchPAT results. | Check-out note: WatchPAT Aklee [place] Pruitt DO documented in this encounter Nursing Notes * Bailee Menezes LPN - 03/28/2023 2:14 PM EST New pt video visit to review results of recent HST, done 12/31/22. Lawrence Sleepiness Scale Question 03/28/2023 2:11 PM EST - Filed by Bailee Menezes LPN What is the chance you will doze off in the following situation? Sitting and reading Slight chance of dozing Watching TV Moderate chance of dozing Sitting inactive in a public place, such as a theater or meeting No chance of dozing As a passenger in a car for an hour without a break No chance of dozing Lying down to rest in the afternoon when circumstances permit High chance of dozing When sitting and talking to someone No chance of dozing When sitting quietly after lunch without alcohol Slight chance of dozing In a car, while stopped for a few minutes in traffic No chance of dozing Score (range: 0 - 24) 7 Functional Outcomes Of Sleep Question 03/28/2023 2:13 PM EST - Filed by Bailee Menezes LPN Please complete the following questions. Do you have difficulty concentrating because you are sleepy or tired? Yes, a little Do you have difficulty remembering things because you are sleepy or tired? Yes, a little Do you have difficulty operating a motor vehicle for short distances (less than 100 miles) because you become sleepy? No Do you have difficulty operating a motor vehicle for long distances (more than 100 miles) because you become sleepy? No Do you have difficulty visiting family or friends in their home because you become sleepy or tired?No Has your relationship with family, friends, or work colleagues been affected because you are sleepyor tired? Yes, a little Do you have difficulty watching a movie or video because you become sleepy or tired? Yes, moderate Do you have difficulty being as active as you want to be in the evening because you are tired or sleepy? Yes, moderate Do you have difficulty being as active as you want to be in the morning because you are tired or sleepy? Yes, a little Has your mood been affected because you are sleepy or tired? Yes, a little Score (range: 10 - 40) 31 documented in this encounter Plan of Treatment Upcoming Encounters Date Type Department Care Team (Late st Contact Info) Description 09/14/2023 11:00 AM EDT Office Visit Nutrition & Weight Management, [facility] [address] [place] [address] Lita Borges PA-C [address] [place] [address] 01/02/2024 8:30 AM EDT Telemedicine Endocrinology, [place] [address] [place] [address] April Marinelli PA-C [address] [place] [address] Scheduled Orders Name Type Priority Associated Diagnoses Orde r Schedule TIMED SLEEP STUDY, UNATTEND, HR/O2 SAT/RESP Procedures Routine Snoring Fatigue, unspecified type Sleep apnea, unspecified type Ordered: 03/29/2023 Scheduled Procedures Name Priority Associated Diagnoses Date/Ti [...] as of this encounter Visit Diagnoses Diagnosis Snoring- Primary Other dyspnea and respiratory abnormality Fatigue, unspecified type Sleep apnea, unspecified type documented in this encounter Advance Directives Latest Code Status on File Code Status Date Activated Date Inactivated Comments Full Code 01/06/2016 2:38 PM 01/07/2016 1:40 PM This order reflects the patients wishes and were consensually agreed upon. Question Answer Comments Discussion of Advance Directives occurred with: Not Discussed Care Teams Business System Manager Relationship Specialty Start Date End Date Fortino Plunkett MD [address] [place] [address] PCP - General Family Medicine 04/17/14 documented as of this encounter
--- OUTSIDE RECORDS SUMMARY | 2023-09-04 18:18 | External Medical Summary | Summary of Care ---
Author Name Unknown Organization [facility] Address [address] [place] [address] Phone [phone] Care Team Providers Care Can Sterilizer Name Role Phone Fortino Plunkett MD Primary Care Provider + Reason for Visit * Reason Onset Date Comments Scheduling 04/06/2023 WATCHPAT Encounter Details Date Type Department Care Team (Late st Contact Info) Description 04/06/2023 Telephone Sleep Lab Kalee Antunez [address] [facility] [place] [address] [place] [facility] Home Study [facility] [address] [facility] [place] [phone] Scheduling (WATCHPAT) Allergies Active Allergy Reactions Criticality Noted Date Comments Cat Dander Edema airway High 10/24/2012 Dog Dander Edema airway High 10/24/2012 Dust 10/24/2012 Nasal congestion Molds & Smuts 10/24/2012 Nasal congestion Pollen Extract 01/11/2022 Stuffy nose documented as of this encounter (statuses as of 04/07/2023) Medications Medication Sig Dispensed Refills Start Date [...] Respimat 2.5 MCG/ACT Inhalation Aerosol Solution (Tiotropium [place] Monohydrate) Inhale by mouth 2 Puffs [...] as of this encounter (statuses as of 04/07/2023) Active Problems Problem Noted Date Diagnosed Date [...] as of this encounter (statuses as of 04/07/2023) Resolved Problems Problem Noted Date Diagnosed Date [...] as of this encounter (statuses as of 04/07/2023) Immunizations Name Administration Dates Next Due COVID-19 [...] encounter Miscellaneous Notes * Telephone Encounter - KnepYareli camilo OSA - 04/07/2023 10:43 AM EST Pt is scheduled June 15. Pt is aware * Telephone Encounter - Marely Mariscal OSA - 04/06/2023 8:13 AM EST WATCHPAT Ordered by Olga Pruitt, DO No auth needed documented in this encounter Plan of Treatment Upcoming Encounters Date Type Department Care Team (Late st Contact Info) Description 06/15/2023 10:00 AM EST PulmDiagnostic Sleep Lab [facility] [address] [place] [address] [facility] Sleep Med Home Study [facility] [address] [facility] [place] [address] 09/14/2023 11:00 AM EDT Office Visit Nutrition & Weight Management, [facility] [address] [place] [address] Lita Borges PA-C [address] [place] [phone] 01/02/2024 8:30 AM EDT Telemedicine Endocrinology, [place] [address] [place] [address] April Marinelli PA-C [address] [place] [address] Scheduled Procedures Name Priority Associated Diagnoses Date/Ti [...] Directives occurred with: Not Discussed Care Teams Can Sterilizer Relationship Specialty Start Date End Date Fortino Plunkett MD [address] [place] [address] PCP - General Family Medicine 04/17/14 documented as of this encounter
--- OUTSIDE RECORDS SUMMARY | 2023-09-04 18:18 | External Medical Summary | Summary of Care ---
Author Name Unknown Organization [facility] Address [address] [place] [address] Phone [phone] Care Team Providers Care Rn Field Case Manager Name Role Phone Fortino Plunkett MD Primary Care Provider + Reason for Visit * Reason Onset Date Comments Scheduling 04/06/2023 WATCHPAT Encounter Details Date Type Department Care Team (Late st Contact Info) Description 04/06/2023 Telephone Sleep Lab Kalee Antunez [address] [facility] [place] [address] [place] Sleep Med Home Study [facility] [address] [facility] [place] [phone] Scheduling (WATCHPAT) Allergies Active Allergy Reactions Criticality Noted Date Comments Cat Dander Edema airway High 10/24/2012 Dog Dander Edema airway High 10/24/2012 Dust 10/24/2012 Nasal congestion Molds & Smuts 10/24/2012 Nasal congestion Pollen Extract 01/11/2022 Stuffy nose documented as of this encounter (statuses as of 04/06/2023) Medications Medication Sig Dispensed Refills Start Date [...] Respimat 2.5 MCG/ACT Inhalation Aerosol Solution (Tiotropium [place] Monohydrate) Inhale by mouth 2 Puffs in [...] as of this encounter (statuses as of 04/06/2023) Active Problems Problem Noted Date Diagnosed Date [...] as of this encounter (statuses as of 04/06/2023) Resolved Problems Problem Noted Date Diagnosed Date [...] as of this encounter (statuses as of 04/06/2023) Immunizations Name Administration Dates Next Due COVID-19 [...] encounter Miscellaneous Notes * Telephone Encounter - WorhaMarely quiles OSA - 04/06/2023 8:13 AM EST WATCHPAT Ordered by Olga Pruitt, DO No auth needed documented in this encounter Plan of Treatment Upcoming Encounters Date Type Department Care Team (Late st Contact Info) Description 09/14/2023 11:00 AM EDT Office Visit Nutrition & Weight Management, [facility] [address] [place] [address] Lita Borges PA-C [address] [place] [address] 01/02/2024 8:30 AM EDT Telemedicine Endocrinology, [place] [address] [place], [place] [phone] April Marinelli PA-C [address] [place], [place] [phone] Scheduled Procedures Name Priority Associated Diagnoses Date/Ti [...] Directives occurred with: Not Discussed Care Teams Rn Field Case Manager Relationship Specialty Start Date End Date Fortino Plunkett MD [address] [place] [phone] PCP - General Family Medicine 04/17/14 documented as of this encounter
--- OUTSIDE RECORDS SUMMARY | 2023-09-04 18:18 | External Medical Summary | Summary of Care ---
Author Name Unknown Organization [facility] Address [address] [place] [address] Phone [phone] Care Team Providers Care Delinquency Prevention Officer Name Role Phone Fortino Plunkett MD Primary Care Provider + Reason for Referral * Evaluate & Treat - Unlimited Visits (Within 10 days (routine)) - Pending Review Specialty Diagnoses / Procedures Referred By Collin jacome Referred To Contact Sleep Medicine / Sleep Disorders Diagnoses Disordered sleep Lita Borges PA-C [address] [place] [id number] Referral ID Status Reason Start Date Expiration Date Visits Requested Visits Authorized [id number] Pending Review Specialty Services Required 03/28/2023 2 2 Question Answer GS CAD SLEEP MED ADULT REFERRAL Sleep Apnea Testing and Management Does the patient snore and/or gasp at night or has been told they stop breathing at night? Yes Referral Priority Within 10 days (routine) Where should this appointment be scheduled? [facility] Reason for Visit * Reason Comments Weight Management Meds and diet. * Evaluate & Treat - Unlimited Visits (Within 30 days (routine)) - Pending Review Specialty Diagnoses / Procedures Referred By Contact Referred To Contact GI NUTRITION/IM / Gastroenterology Diagnoses Obesity, Class II, BMI 35-39.9, isolated (see actual BMI) Chrislaureen Janki CRISTA Christine [address] [place] [id number] Referral ID Status Reason Start Date Expiration Date Visits Requested Visits Authorized [id number] Pending Review Specialty Services Required 12/09/[phone] Encounter Details Date Type Department Care Team (Late st Contact Info) Description 03/28/2023 9:40 AM EST Office Visit Nutrition & Weight Management, [facility] [address] [place] [id number] Lita Borges PA-C [address] [place] [id number] Morbid obesity due to excess calories (HCC)*; Abnormal weight gain; Disordered sleep; Laryngopharyngeal reflux (LPR) Allergies Active Allergy Reactions Criticality Noted Date Comments Cat Dander Edema airway High 10/24/2012 Dog Dander Edema airway High 10/24/2012 Dust 10/24/2012 Nasal congestion Molds & Smuts 10/24/2012 Nasal congestion Pollen Extract 01/11/2022 Stuffy nose documented as of this encounter (statuses as of 03/28/2023) Medications Medication Sig Dispensed Refills Start Date [...] Respimat 2.5 MCG/ACT Inhalation Aerosol Solution (Tiotropium [place] Monohydrate) Inhale by mouth 2 Puffs in [...] for Cough. 50 Capsule 0 3 Active predniSONE 10 MG Oral Tablet (Deltasone)Indicatio ns:Exacerbation of asthma, unspecified asthma severity, unspecified whether persistent Take 5 tablets by mouth for 2 days, 4 tabs for 2 days, 3 tabs for 2 days, 2 tabs for 2 days 1 tab for 2 days 30 Tablet 0 3 Active Wegovy 0.25 MG/0.5ML Subcutaneous Solution Auto-injector (Semaglutide-Weight Management)Indicatio ns:Morbid obesity due to excess calories (HCC) Inject 0.25 mg under the skin once a week. 2 mL 0 3 Active Famotidine 20 MG Oral Tablet (Pepcid) Take 1 Tablet by mouth in the morning and 1 Tablet before bedtime. 60 Tablet 11 3 03/28/20 23 Discontinu ed(Medicat ion List Clean Up) documented as of this encounter (statuses as of 03/28/2023) Active Problems Problem Noted Date Diagnosed Date [...] as of this encounter (statuses as of 03/28/2023) Resolved Problems Problem Noted Date Diagnosed Date [...] as of this encounter (statuses as of 03/28/2023) Immunizations Name Administration Dates Next Due COVID-19 [...] Sign Reading Time Taken Comments Blood Pressure 132/76 03/28/2023 9:41 AM EST Pulse 76 03/28/2023 9:41 AM EST Temperature - - Respiratory Rate - - Oxygen Saturation - - Inhaled Oxygen Concentration - - Weight 118.6 kg (261 lb 6.4 oz) 03/28/2023 9:41 AM EST Height 163.8 cm (5' 4.5") 03/28/2023 9:41 AM EST Body Mass Index 44.18 03/28/2023 9:41 AM EST documented in this encounter Progress Notes * Lita Borges PA-C - 03/28/2023 9:56 AM EST COMPREHENSIVE WEIGHT MANAGEMENT CLINIC CONSULTATION INITIAL CONSULT Referring Physician: CRISTA Quinones Nursing Notes: Elysia Lama, PIPO 03/28/23 0946 Sign at exiting of workspace Pt verified identity by last name and date. Chief Complaint Patient presents with Weight Management Meds and diet. Waist circumference 46 inches Neck circumference 15 inches Source of information: Patient Available records reviewed: Recent provider visits, Imaging, and Labs Reason for Referral: Weight Management. Juana Teran is a 47 year old patient with a past medical history for Patient Active Problem List Diagnosis Code Routine general medical examination at a [facility] care facility Z00.00 Allergic rhinitis J30.9 Liver hemangioma D18.03 S/P cholecystectomy Z90.49 Family history of breast cancer in mother Z80.3 PMDD (premenstrual dysphoric disorder) F32.81 S/P bilateral breast reduction Z98.890 Obesity, Class II, BMI 35-39.9, isolated (see actual BMI) E66.9 DIEGO (stress urinary incontinence, female) N39.3 OAB (overactive bladder) N32.81 Morbid obesity due to excess calories (HCC) E66.01 Body mass index (BMI) of 40.0 to 44.9 in adult (HCC) Z68.41 Severe persistent asthma without complication J45.50 Food sensitivity with gastrointestinal symptoms T78.1XXA Papular eczema L30.8 Laryngopharyngeal reflux (LPR) K21.9 Perimenopausal N95.1 Night sweats R61 BRAD (generalized anxiety disorder) F41.1 Skin pustule L08.9 Left-sided chest pain R07.9 who presents to [facility] for further recommendations. HPI: The patient suffers from Morbid obesity Patient is interested in the following treatment options for obesity: possible medication use. 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 -phentermine -wellbutrin/naltrexone -keto diet - Initial clinic visit 03/28/23. Weight 261 lbs Height 64.5" Body mass index is 44.18 kg/m. -program goal weight: Today's Visit 03/28/23 - Overall goal: be healthier - Wt hx: has struggled more since having kids age 34lbs - Highest wt as adult: 261lbs - Lowest wt as adult: 213lbs - Barriers: stress, relationship with food Wt Readings from Last 8 Encounters: 03/28/23 118.6 kg (261 lb 6.4 oz) 03/21/23 120.6 kg (265 lb 12.8 oz) 03/10/23 117.5 kg (259 lb) 12/09/22 118.6 kg (261 lb 8 oz) 03/23/22 119.7 kg (264 lb) 03/11/22 119.9 kg (264 lb 4 oz) 01/14/22 117.3 kg (258 lb 9.6 oz) 11/23/21 117.3 kg (258 lb 8 oz) Current Diet: Describes typical diet history/24 hr recall Breakfast: bagel with cream cheese or PB, banana, coffee OR egg sandwich on thai muffin with cheese and greek beck OR cold or hot cereal Snacks: skips OR apple, string cheese, Lunch: leftover - protein, carb, veggie OR sandwich with fruit OR frozen meal Snacks: goldfish, cheese and crackers, frozen banana OR popcorn OR apple Dinner: protein, carb, veggie; 1 vegetarian meal per week Snacks: granola bar Drinks: water, 1 coffee per day Restaurant meals: once a week, twice a week Activity: ADL Past Medical History Patient Active Problem List Diagnosis Code Routine general medical examination at a health care facility Z00.00 Allergic rhinitis J30.9 Liver hemangioma D18.03 S/P cholecystectomy Z90.49 Family history of breast cancer in mother Z80.3 PMDD (premenstrual dysphoric disorder) F32.81 S/P bilateral breast reduction Z98.890 Obesity, Class II, BMI 35-39.9, isolated (see actual BMI) E66.9 DIEGO (stress urinary incontinence, female) N39.3 OAB (overactive bladder) N32.81 Morbid obesity due to excess calories (HCC) E66.01 Body mass index (BMI) of 40.0 to 44.9 in adult (HCC) Z68.41 Severe persistent asthma without complication J45.50 Food sensitivity with gastrointestinal symptoms T78.1XXA Papular eczema L30.8 Laryngopharyngeal reflux (LPR) K21.9 Perimenopausal N95.1 Night sweats R61 BRAD (generalized anxiety disorder) F41.1 Skin pustule L08.9 Left-sided chest pain R07.9 Glaucoma No Hypertension: No CAD: No Congestive heart failure No DVT/PE, clotting disorder: No Stroke: No Seizures: No Sleep Apnea: No Asthma: Yes COPD: No Patient denies personal or family history of medullary thyroid carcinoma. Patient denies personal or family history of multiple endocrine neoplasia syndrome type II Patient denies personal history of pancreatitis Diabetes: No GERD: Yes: Requiring medications: Yes History of nephrolithiasis: No. Anxiety/Depression: Yes Past Surgical History: Procedure Laterality Date , INDUCED BY D&C x1 COLONOSCOPY 2011 mild colitis? COLONOSCOPY, DIAGNOSTIC (RECTUM) 01/14/2022 diverticulosis, repeat 10 yrs / COLONOSCOPY FLEXIBLE PROXIMAL DIAGNOSTIC performed by Chirag Ravi MD at [facility] COLPSCPY CERVIX W/LOOP ELECT DENTAL SURGERY PROCEDURE NEC EGD, FLEXIBLE, DIAGNOSTIC 03/23/2022 normal / ESOPHAGOGASTRODUODENOSCOPY (EGD), FLEXIBLE, TRANSORAL, DIAGNOSTIC performed by Sheela Lawrence DO at [facility] LAPAROSCOPY; CHOLECYSTECTOMY 04/2010 MAMMOGRAM BREAST NEEDLE BIOPSY CORE LEFT Left 08/05/2015 Benign MISCELLANEOUS ORDER ([facility] ONLY) Left 08/05/2015 left breat biopsy REDUCTION OF BREAST Bilateral 01/06/2016 REDUCTION MAMMOPLASTY [place] Rusty R[place] [facility] [place] of patient's allergies indicates: Allergen Reactions Cat Dander Edema airway Dog Dander Edema airway Mites [Dust] Nasal congestion Molds & Smuts Nasal congestion Pollen Extract-Tree Extract [Pollen Extract] Stuffy nose Current Outpatient Medications Medication Sig Dispense Refill [...] Respimat 2.5 MCG/ACT Inhalation Aerosol Solution (Tiotropium [place] Monohydrate) Inhale bymouth 2 Puffs in the morning. 12 g 3 Albuterol Sulfate HFA 108 (90 Base) MCG/ACT Inhalation Aerosol Solution Inhale 2 Puffs by mouth every 4 hours as needed for Cough, Shortness of Breath or Wheezing. 8.5 g 3 Clindamycin Phosphate 1 % External Gel Apply twice daily to areas in groin creases as per instructions on checkout sheet 60 g 2 Gabapentin 100 MG Oral Capsule (Neurontin) take [...] BY MOUTH AT BEDTIME. 90 Tablet 3 Esomeprazole Magnesium 20 MG Oral Capsule Delayed Release (NexIUM 24HR Clear Minis) Take 1 Capsule by mouth daily before breakfast. Benzonatate 100 MG Oral Capsule Take 1 Capsule by mouth 3 times a day as needed for Cough. 50 Capsule 0 predniSONE 10 MG Oral Tablet (Deltasone) Take 5 tablets by mouth for 2 days, 4 tabs for 2 days, 3 tabs for 2 days, 2 tabs for 2 days 1 tab for 2 days 30 Tablet 0 Wegovy 0.25 MG/0.5ML Subcutaneous Solution Auto-injector (Semaglutide-Weight Management) Inject 0.25 mg under the skin once a week. 2 mL 0 Doxycycline Monohydrate 100 MG Oral Capsule Take 1 capsule by mouth daily with or without food (Patient not taking: Reported on 03/21/2023) 60 Capsule 3 No current facility-administered medications for this visit. 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 Menstrual Cycle: Yes, regular Control: Physical Examination: BP 132/76 | Pulse 76 | Ht 1.638 m (5' 4.5") | Wt 118.6 kg (261 lb 6.4 oz) | BMI 44.18 kg/m | BSA 2.32 m General: Patient awake alert and oriented. Patient is well appearing and in no acute distress. Skin: No rashes. HEENT: Head is atraumatic, normocephalic. EOMs intact Abdomen: Obese Neuro: No focal deficits Psych: Appropriate mood and affect. Assessment and Recommendation: Abnormal weight gain Body mass index is 44.18 kg/m. Morbid obesity . Discussed weight management options and would like to proceed with medication weight management. Barriers are consistency. Motivators are feeling better, avoiding/reducing comorbid conditions. Patient goals were discussed in detail at visit. Explained to the patient that they can lose on average ~5-10% of current weight with medical management, ~10-15% with medication use, and ~40-60% with bariatric surgery. Interest in surgery 0% Motivation to make behavioral and dietary changes 90% 1. Keep a food log. If you bite it, write it! Apps like Uniplaces or PartyWithMe Calorie goal: 1500 Macronutrients: Protein 10%-35%, Carbohydrates 45%-65%, fat 20%-35% Lower carb: protein 35%, Carbohydrates 40%, fat 25% 2. Drink 48-64 ounces of non-caloric beverages per day. No fruit juices or regular soda Try crystal light, propel, zero calorie flavored water, plain water 3. Goal of 30 minutes of exercise 5 days per week (150 minutes per week--can be divided up however you would like) Aim for aerobic activity and muscle strengthening activities 4. Increase fruit and vegetable servings to 5-6 per day. 1/2 of your plate should be fruits and vegetables 5. Eat 100-200 calories within 1-2 hours of awakening, and every 4 - 6 hours while awake. Do not skip meals!! Eat 3 meals with snacks in between. Choose 100 calorie or less snacks, protein snacks (see handout) 7. Weight yourself weekly and follow trend over time (day to day weight fluctuations can be discouraging) 8. Decrease starches like bread, pasta, cereal, potatoes and corn. Aim for of your plate Try substitutions like zoodles, lentil pasta, cauliflower mashed potatoes, whole grain foods, quinoa Limit junk/processed foods Chips, pretzels, cookies, cakes, sweets White bread/rolls/wraps/bagels, white rice 9. Increase protein to feel full longer (1/4 of your plate; see myplate handout) Juana was seen today for weight management. Diagnoses and all orders for this visit: Morbid obesity due to excess calories (HCC) - Wegovy 0.25 MG/0.5ML Subcutaneous Solution Auto-injector (Semaglutide-Weight Management); Inject 0.25 mg under the skin once a week. -plan to start Wegovy - she will send message, do not start titration until has all 3 low doses -avoid phentermine - used with success in the past, but was not helpful when tried again -avoid contrave - did not tolerate wellbutrin/naltrexone previously -avoid Xenical - did not tolerate Quinn, diarrhea at baseline after cholecystectomy Abnormal weight gain Disordered sleep - SLEEP MEDICINE REFERRAL OP -inconclusive HST Laryngopharyngeal reflux (LPR) -continue PPI I spent a total of 40 minutes on the date of service in preparation, delivery, and documentation ofthe care provided to Juana Teran excluding any time spent in the performance of separately billed services. Time spent with patient 35 minutes. More than 50% of my time spent with patient providing counseling about the benefits of weight loss, about the patient's nutritional status, detailed explanations about calorie count, types of nutrients to choose, and composition of the meals. Reviewed and discussed weight, weight trends and pertinent labs and test results. Motivational interview provided in order to prepare the patient to achieve future goals. The patient agreed to try all the plan discussedand return in three months. Patient was instructed to message or call in the meantime with any further concerns or questions. Lita VOSS, MPH [facility] ([facility]) documented in this encounter Nursing Notes * Elysia Lama LPN - 03/28/2023 9:46 AM EST Pt verified identity by last name and date. Chief Complaint Patient presents with Weight Management Meds and diet. Waist circumference 46 inches Neck circumference 15 inches documented in this encounter Plan of Treatment Upcoming Encounters Date Type Department Care Team (Late st Contact Info) Description 03/29/2023 9:20 AM EST Telemedicine Sleep Disorders Ctr [facility] [address] [place] [phone] Olga Pruitt DO [address] [place] [id number] 09/14/2023 11:00 AM EDT Office Visit Nutrition & Weight Management, [facility] [address] [phone] Lita Borges PA-C [address] [place] [address] 01/02/2024 8:30 AM EDT Telemedicine [address]inology[address] [address] April Marinelli PA-C [address] [place] [address] Scheduled Procedures Name Priority Associated Diagnoses Date/Ti me COLONOSCOPY FLEXIBLE PROXIMAL DIAGNOSTIC Recall Screen for colon cancer Scheduled Referrals Name Type Priority Associated Diagnoses Orde r Schedule SLEEP MEDICINE REFERRAL OP Referral Within 10 days (routine) Disordered sleep Ordered: 03/28/2023 Health Maintenance Due Date Last Done Comments [...] as of this encounter Visit Diagnoses Diagnosis Morbid obesity due to excess calories (HCC)- Primary Abnormal weight gain Disordered sleep Sleep disturbance, unspecified Laryngopharyngeal reflux (LPR) Other diseases of larynx documented in this encounter Advance Directives Latest Code Status on File Code Status Date Activated Date Inactivated Comments Full Code 01/06/2016 2:38 PM 01/07/2016 1:40 PM This order reflects the patients wishes and were consensually agreed upon. Question Answer Comments Discussion of Advance Directives occurred with: Not Discussed Care Teams Delinquency Prevention Officer Relationship Specialty Start Date End Date Fortino Plunkett MD [address] [place] [id number] PCP - General Family Medicine 04/17/14 documented as of this encounter
--- NOTE | 2023-09-04 18:28 | Emergency Department Note ---
History of Present Illness General Chief complaint: Shortness of Breath/Dyspnea Stated complaint: DFFICULTY BREATHING, NEBS NOT HELPING Time Seen by Provider: 09/04/23 18:28 History of Present Illness NAME: YESICA AREVALO AGE: 48 SEX: F : 1975 ARRIVES VIA: Walk-In INFORMANT: Patient ED PROVIDER(S): CRISTA Bynum, Abbey Alfonso MD The patient is a pleasant 48-year-old female who arrives to the emergency department for evaluation of upper respiratory illness over the last month. She reports initial onset 1 month ago, with a sore throat, and states she had red pustules and goop in her posterior throat. She reports she tested negative for strep COVID RSV you flu a and B. She was given a steroid taper by her primary care provider which did help her symptoms momentarily. She states 2 days after the end of the taper, the sore throat returned. She states she did a video visit with her primary care provider who provided her with amoxicillin and another steroid taper. He did test her for mono, which was negative. She states 2 days after the antibiotic treatment was finished, the symptoms returned again. She reports currently taking a Medrol Dosepak, Tessalon Perles, and Mucinex. She reports this morning the coughing was persistent, she has a yellow sputum, and a sensation of shortness of breath. She denies fever, chest pain, abdominal pain, nausea or vomiting. Home Medications Medication Instructions Recorded Confirmed Type cholecalciferol (vitamin D3) 25 50 mcg PO DAILY 09/04/23 09/04/23 History mcg (1,000 unit) tablet (Vitamin D3) cyanocobalamin (vitamin B-12) 500 0 mcg PO DAILY 09/04/23 09/04/23 History mcg tablet (Vitamin B-12) esomeprazole magnesium 20 mg 20 mg PO DAILY 09/04/23 09/04/23 History capsule,delayed release (Nexium) fluticasone 500 mcg-salmeterol 50 1 ea inhalation BID 09/04/23 09/04/23 History mcg/dose blistr powdr for inhalation gabapentin 100 mg capsule 100 - 200 mg PO DAILY 09/04/23 09/04/23 History levocetirizine 5 mg tablet (Xyzal) 5 mg PO PM 09/04/23 09/04/23 History montelukast 10 mg tablet 10 mg PO QPM 09/04/23 09/04/23 History nlixmint-xqw-ygfvzp 5 mg-zeaxanth 1 cap PO DAILY 09/04/23 09/04/23 History 1 mg-bilberry 7.5 mg-herbal capsule ([employer] Formula) multivitamin 1 tab PO DAILY 09/04/23 09/04/23 History tiotropium bromide 2.5 2 puff inhalation DAILY 09/04/23 09/04/23 History mcg/actuation mist for inhalation (Spiriva Respimat) Allergies Allergy/AdvReac Type Severity Reaction Status Date / Time animal dander Allergy stuffy Verified 09/04/23 22:02 nose, itchy eyes & throat mold Allergy stuffy Verified 09/04/23 22:02 nose, itchy eyes & throat pollen extracts Allergy stuffy Verified 09/04/23 22:02 nose , itchy eyes & throat Past Med/Surg History Social History Smoking Status: Never smoker Feels Safe at Home: Yes Physical Exam Vital Signs Vital Signs - 24 hr 09/04/23 18:14 09/04/23 18:30 09/04/23 18:30 Temperature 36.4 C L Temperature Source Temporal Artery Scan Pulse Rate 94 H 95 H Pulse Rate [Apical] Pulse Rate from SpO2 Sensor 95 H Respiratory Rate 18 21 Respiratory Effort / Characteristics Non-Labored Respiratory Depth Normal Respiratory Pattern Regular Blood Pressure 199/93 H 96/75 L Blood Pressure [Left Arm] Blood Pressure Mean 128 85 Blood Pressure Mean [Left Arm] Pulse Oximetry 97 98 Oxygen Delivery Method Room Air Oxygen Flow Rate Sepsis Recent Fever Within 48 Hours No Sepsis New/Unexplained Change in Mental Status N/A Sepsis Action Taken by Nursing No Action Required 09/04/23 18:30 09/04/23 18:38 09/04/23 18:38 Temperature Temperature Source Pulse Rate 91 H Pulse Rate [Apical] Pulse Rate from SpO2 Sensor Respiratory Rate Respiratory Effort / Characteristics Respiratory Depth Respiratory Pattern Blood Pressure Blood Pressure [Left Arm] Blood Pressure Mean Blood Pressure Mean [Left Arm] Pulse Oximetry Oxygen Delivery Method Room Air Room Air Oxygen Flow Rate 98 Sepsis Recent Fever Within 48 Hours Sepsis New/Unexplained Change in Mental Status Sepsis Action Taken by Nursing 09/04/23 19:00 09/04/23 19:30 09/04/23 20:54 Temperature Temperature Source Pulse Rate 87 83 Pulse Rate [Apical] 89 Pulse Rate from SpO2 Sensor 87 83 Respiratory Rate 17 17 23 Respiratory Effort / Characteristics Respiratory Depth Respiratory Pattern Blood Pressure Blood Pressure [Left Arm] 149/72 H Blood Pressure Mean Blood Pressure Mean [Left Arm] 97 Pulse Oximetry 98 98 97 Oxygen Delivery Method Oxygen Flow Rate Sepsis Recent Fever Within 48 Hours Sepsis New/Unexplained Change in Mental Status Sepsis Action Taken by Nursing 09/04/23 22:00 09/04/23 22:38 09/05/23 00:00 Temperature 37.3 C 37.5 C Temperature Source Oral Oral Pulse Rate 87 Pulse Rate [Apical] 87 88 Pulse Rate from SpO2 Sensor Respiratory Rate 16 18 Respiratory Effort / Characteristics Respiratory Depth Respiratory Pattern Blood Pressure Blood Pressure [Left Arm] 154/67 H Blood Pressure Mean Blood Pressure Mean [Left Arm] 96 Pulse Oximetry 98 97 Oxygen Delivery Method Room Air Room Air Oxygen Flow Rate Sepsis Recent Fever Within 48 Hours Sepsis New/Unexplained Change in Mental Status Sepsis Action Taken by Nursing 09/05/23 00:19 Temperature 37.5 C Temperature Source Oral Pulse Rate 81 Pulse Rate [Apical] Pulse Rate from SpO2 Sensor Respiratory Rate 18 Respiratory Effort / Characteristics Respiratory Depth Respiratory Pattern Blood Pressure 154/67 H Blood Pressure [Left Arm] Blood Pressure Mean Blood Pressure Mean [Left Arm] Pulse Oximetry 98 Oxygen Delivery Method Room Air Oxygen Flow Rate Sepsis Recent Fever Within 48 Hours Sepsis New/Unexplained Change in Mental Status Sepsis Action Taken by Nursing VITALS: Vitals are noted on the nurse's note and reviewed by myself. Vital signs stable. GENERAL: 48-year-old female, in no acute distress, nondiaphoretic, well- developed well-nourished. SKIN: The skin was without rashes, erythema, edema, or bruising. HEAD: Normocephalic atraumatic. MOUTH: Mucous membranes moist. Pharynx without erythema or exudate. Uvula midline. Airway patent. Tongue does not deviate. NECK: Supple without nuchal rigidity. No lymphadenopathy. HEART: Regular rate and rhythm without murmurs gallops or rubs. LUNGS: Clear to auscultation bilaterally without wheezes, rales or rhonchi. No retractions or accessory muscle use. ABDOMEN: Positive bowel sounds x 4. Soft, nontender, without masses or organomegaly. Mcfadden sign negative. No guarding or rebound tenderness. MUSCULOSKELETAL: No muscle atrophy, erythema, or edema noted. Normal gait. Strength 5/5 throughout. NEURO: Patient was alert and oriented to person place and time. No focal neurological deficits. Course Administered Medications Discontinued Medications Sodium Chloride (Nss) 1,000 mls @ 999 mls/hr IV .Q1H1M CALOS Stop: 09/04/23 23:00 Last Infusion: 09/04/23 22:39 Dose: Infused Documented By: Admin: 09/04/23 21:38 Dose: 999 mls/hr Documented By: [facility] Infusion: 09/04/23 21:38 Dose: Infused Documented By: [facility] Admin: 09/04/23 21:03 Dose: 999 mls/hr Documented By: [facility] Medical Decision Making Differential Diagnosis Viral syndrome, strep pharyngitis, tonsillitis, mononucleosis, retropharyngeal abscess, peritonsillar abscess, otitis media, sinusitis, bronchitis, pneumonia, as well as other pathologies. Medical Records Attestation: I reviewed the patient's medical records. Home Medications Current Medication List: was personally reviewed by me Laboratory Data Attestation: I reviewed the patient's lab results. Leukocytosis 12.67, stable hemoglobin and hematocrit, no electrolyte abnormalities, upper respiratory BioFire negative, group A strep negative, urinalysis negative, monoscreen negative, lactate 2.9, D-dimer 470. 09/04/23 18:48 09/04/23 18:48 Lab Results 09/04/23 09/04/23 09/04/23 Range/Units 18:48 20:35 22:29 WBC 12.67 H (4.8-10.8) K/ul RBC 4.33 (4.20-5.40) M/uL Hgb 12.3 (12.0-16.0) g/dl Hct 37.2 (37.0-47.0) % MCV 85.9 (80.0-100.0) fL MCH 28.4 (25.0-34.0) pg MCHC 33.1 (32.0-36.0) g/dL RDW Std Deviation 43.6 (36.4-46.3) fL RDW Coeff of Myrna 14.0 (11.5-14.5) % Plt Count 298 (130-400) K/uL MPV 9.8 (9.4-12.4) fL Immature Gran % (Auto) 0.7 % Neut % (Auto) 76.2 % Lymph % (Auto) 14.8 % [place] % (Auto) 8.1 % Eos % (Auto) 0.0 % Baso % (Auto) 0.2 % Neut # (Auto) 9.65 H (1.40-6.50) K/uL Lymph # (Auto) 1.87 (1.20-3.40) K/uL [place] # (Auto) 1.03 H (0.11-0.59) K/uL Eos # (Auto) 0.00 (0.00-0.50) K/uL Baso # (Auto) 0.03 (0.00-0.20) K/uL Immature Gran # (Auto) 0.09 (0.01-0.20) K/uL D-Dimer 470 (0-500) ug/L FEU Sodium 137 (136-145) mmol/L Potassium 3.6 (3.5-5.1) mmol/L Chloride 105 (98-107) mmol/L Carbon Dioxide 21 (21-32) mmol/L Anion Gap 11 (3-11) BUN 12 (6-23) mg/dl Creatinine 0.77 (0.6-1.2) mg/dl Est Cr Clr Drug Dosing 112.3 ml/min Est GFR ( Amer) 105.1 ml/min Est GFR (Non-Af Amer) 90.7 ml/min BUN/Creatinine Ratio 15.6 (10-20) Glucose 172 H (70-99(Fasting)) mg/dl Lactate 2.9 H* (0.4-2.0) mmol/L Calcium 8.9 (8.6-10.3) mg/dl Total Bilirubin 0.2 (0.2-1.0) mg/dl AST 18 (13-39) U/L ALT 17 (7-52) U/L Alkaline Phosphatase 76 (34-104) U/L Total Protein 7.5 (6.0-8.3) gm/dl Albumin 3.9 (3.4-5.0) gm/dl Globulin 3.6 (2.5-4.0) gm/dl Albumin/Globulin Ratio 1.1 (0.9-2) Procalcitonin < 0.02 (0-0.5) ng/ml Urine Color Yellow Urine Appearance Clear (Clear) Urine pH 5.5 (4.5-7.5) Ur Specific [place] 1.018 (1.000-1.030) Urine Protein Negative (Negative) Urine Glucose (UA) Negative (Negative) Urine Ketones Negative (Negative) Urine Blood Negative (Negative) Urine Nitrite Negative (Negative) Urine Bilirubin Negative (Negative) Urine Urobilinogen Negative (Negative) Ur Leukocyte Esterase Negative (Negative) Adenovirus (PCR) Not Detected (NotDetected) B. pertussis DNA (PCR) Not Detected (NotDetected) B.parapertussis DNA PCR Not Detected (NotDetected) C. pneumoniae DNA (PCR) Not Detected (NotDetected) Coronavirus OC43 (PCR) Not Detected (NotDetected) Coronavirus HKU1 (PCR) Not Detected (NotDetected) Coronavirus 229E (PCR) Not Detected (NotDetected) SARS-CoV-2 (PCR) Not Detected (NotDetected) Coronavirus NL63 (PCR) Not Detected (NotDetected) Monoscreen Negative (Negative) Human Metapneumovir PCR Not Detected (NotDetected) Influenza Type A (PCR) Not Detected (NotDetected) Influenza Type B (PCR) Not Detected (NotDetected) M. pneumoniae (PCR) Not Detected (NotDetected) Parainfluenza 1 (PCR) Not Detected (NotDetected) Parainfluenza 2 (PCR) Not Detected (NotDetected) Parainfluenza 3 (PCR) Not Detected (NotDetected) Parainfluenza 4 (PCR) Not Detected (NotDetected) RSV (PCR) Not Detected (NotDetected) Entero/Rhino (PCR) Not Detected (NotDetected) Group A Strep (PCR) NOT DETECTED (NotDetected) Imaging Data Attestation: I personally reviewed and interpreted this imaging study as follows: My Impression: Initial x-ray interpretation per myself shows no acute cardiopulmonary process. Will await formal radiology report. Radiologist's Impression: Chest X-Ray 09/04/23 18:40 XR chest 2V PA/lateral CLINICAL HISTORY: cough, shob TECHNIQUE: 2 views of the chest were obtained. Comparison: Comparison is made to chest radiograph 04/15/2017 FINDINGS: No lines and tubes are seen. The cardiomediastinal silhouette is normal. The lungs are clear. No evidence of pleural effusion or pneumothorax. IMPRESSION: No acute abnormalities and in particular no radiographic evidence of pneumonia. ACT 112: Negative or not required by law. Electronically signed by: Kelvin Fisher M.D. 09/04/2023 7:27 PM MDM Narrative The patient is a pleasant 48-year-old female who arrives to the emergency department for the above-stated complaint. Upon examination the patient expresses symptoms that have been persistent over the last month. She reports new onset of shortness of breath, with significant sputum production that is a yellow color. A saline lock was placed, CBC, CMP, lactate, D-dimer, upper respiratory bio fire, group A strep, urinalysis were obtained. Lab work was reassuring, however lactate was elevated at 2.9. The patient was provided with 2 L of IV saline. The patient is low risk by Wells' criteria and is PERC negative, placing her at a less than 2% pretest probability for PE as outlined by Mathis et al. D-dimer was negative, therefore PE was ruled out on a clinical basis. Chest x-ray imaging per my initial interpretation shows no acute cardiopulmonary abnormality, specifically no evidence of pneumonia. The patient had an episode of hypotension according to nursing vital signs, therefore blood cultures were obtained. Due to the patient's extensive illness, and elevated lactate, I do believe it is appropriate to admit her for SIRS criteria. Case management was notified to assist with the admission process. [facility] did agree to accept the patient, please refer to his documentation for further patient care. Continuous monitor tech: Order was placed for continuous monitor tech. Patient was placed on the monitor tech. Patient was noted to be in sinus tachycardia at an initial rate of 94 bpm. Impression & Plan SOB (shortness of breath), Elevated lactic acid level, Leukocytosis Discharge Plan Visit Data Chief Complaint: Shortness of Breath/Dyspnea Stated Complaint: DFFICULTY BREATHING, NEBS NOT HELPING ED Provider: Abbey Alfonso ED Midlevel Provider: Liz Vasquez Discharge Problem: SOB (shortness of breath), Elevated lactic acid level, Leukocytosis Discharge Instructions Interventions: ED Discharge Assessment Last Done: 09/05/23 00:19 Prescriptions Prescriptions: No Action multivitamin Tablet 1 tab PO DAILY cyanocobalamin (vitamin B-12) [Vitamin B-12] 500 mcg Tablet 0 mcg PO DAILY fluticasone propion-salmeterol 500-50 mcg/dose blister with device 1 ea INHALATION BID montelukast 10 mg tablet 10 mg PO QPM gabapentin 100 mg capsule 100 - 200 mg PO DAILY esomeprazole magnesium [Nexium] 20 mg Capsule,Delayed Release(Dr/Ec) 20 mg PO DAILY cholecalciferol (vitamin D3) [Vitamin D3] 25 mcg (1,000 unit) Tablet 50 mcg PO DAILY levocetirizine [Xyzal] 5 mg Tablet 5 mg PO PM Spiriva Respimat 2.5 mcg/actuation mist 2 puff INHALATION DAILY [employer] Formula 5-1-7.5 mg Capsule 1 cap PO DAILY Discharge Problem: Leukocytosis Qualifiers: Leukocytosis type: unspecified Qualified Code(s): D72.829 - Elevated white blood cell count, unspecified
[2023-09-04 19:06] LABS: Basophils # (auto) 0.03 K/uL (0.00-0.20); Basophils % (auto) 0.2 %; Hematocrit (blood only) 37.2 % (37.0-47.0); Hemoglobin 12.3 g/dl (12.0-16.0); Immature Granulocytes # (auto) 0.09 K/uL (0.01-0.20); Immature Granulocytes % (auto) 0.7 %; Lymphocytes # (auto) 1.87 K/uL (1.20-3.40); Lymphocytes % (auto) 14.8 %; Mean Corpuscular Hemoglobin 28.4 pg (25.0-34.0); Mean Corpuscular Hgb Conc 33.1 g/dL (32.0-36.0); Mean Corpuscular Volume 85.9 fL (80.0-100.0); Mean Platelet Volume 9.8 fL (9.4-12.4); Monocytes # (auto) 1.03 K/uL (0.11-0.59); Monocytes % (auto) 8.1 %; Neutrophils # (auto) 9.65 K/uL (1.40-6.50); Neutrophils % (auto) 76.2 %; Platelet Count 298 K/uL (130-400); RDW Standard Deviation 43.6 fL (36.4-46.3); Red Blood Count 4.33 M/uL (4.20-5.40); White Blood Count 12.67 K/ul (4.8-10.8)
[2023-09-04 19:18] LABS: Albumin Globulin Ratio 1.1 (0.9-2); Albumin Level 3.9 gm/dl (3.4-5.0); BUN Creatinine Ratio 15.6 (10-20); Bilirubin,Total 0.2 mg/dl (0.2-1.0); Calcium 8.9 mg/dl (8.6-10.3); Creatinine Clr Calc Pharmacy 112.3 ml/min; Est GFR (African American) 105.1 ml/min; Est GFR (Non-African American) 90.7 ml/min; Globulin 3.6 gm/dl (2.5-4.0); Potassium 3.6 mmol/L (3.5-5.1); Total Protein 7.5 gm/dl (6.0-8.3)
--- NOTE | 2023-09-04 19:28 | XRay Report ---
XR chest 2V PA/lateral CLINICAL HISTORY: cough, shob TECHNIQUE: 2 views of the chest were obtained. Comparison: Comparison is made to chest radiograph 04/15/2017 FINDINGS: No lines and tubes are seen. The cardiomediastinal silhouette is normal. The lungs are clear. No evid ence of pleural effusion or pneumothorax. IMPRESSION: No acute abnormalities and in particular no radiographic evidence of pneumonia. ACT 112: Negative or not required by law. Electronically signed by: Kelvin Fisher M.D. 09/04/2023 7:27 PM
[2023-09-04 19:38] LABS: D Dimer 470 ug/L FEU (0-500)
[2023-09-04 20:22] LABS: Adenovirus PCR Not Detected (NotDetected); Bordetella parapertussis PCR Not Detected (NotDetected); Bordetella pertussis PCR Not Detected (NotDetected); Chlamydia pneumoniae PCR Not Detected (NotDetected); Coronavirus 229E PCR Not Detected (NotDetected); Coronavirus CoV-2 (COVID19)PCR Not Detected (NotDetected); Coronavirus HKU1 PCR Not Detected (NotDetected); Coronavirus NL63 PCR Not Detected (NotDetected); Coronavirus OC43PCR Not Detected (NotDetected); Human Metapneumovirus PCR Not Detected (NotDetected); Influenza A PCR Not Detected (NotDetected); Influenza B PCR Not Detected (NotDetected); Mycoplasma pneumoniae PCR Not Detected (NotDetected); Parainfluenza Virus 1 PCR Not Detected (NotDetected); Parainfluenza Virus 2 PCR Not Detected (NotDetected); Parainfluenza Virus 3 PCR Not Detected (NotDetected); Parainfluenza Virus 4 PCR Not Detected (NotDetected); Respiratory Syncytial VirusPCR Not Detected (NotDetected); Rhinovirus/Enterovirus PCR Not Detected (NotDetected)
[2023-09-04] MEDS: SODIUM CHLORIDE 0.9% 1,000 ML IV SCH (21:03)
[2023-09-04 22:57] LABS: Appearance Urine Clear (Clear); Bilirubin Urine Negative (Negative); Blood Urine Negative (Negative); Color Urine Yellow; Glucose Urine UA Negative (Negative); Ketones Urine Negative (Negative); Leukocyte Esterase Urine Negative (Negative); Nitrite Urine Negative (Negative); Protein Urine Negative (Negative); Specific Gravity Urine 1.018 (1.000-1.030); Urobilinogen Urine Negative (Negative); pH Urine 5.5 (4.5-7.5)
--- NOTE | 2023-09-04 23:31 | History & Physical Report ---
Date of Service September 04, 2023 Assessment & Plan (1) SOB (shortness of breath): Plan: 48-year-old female with past medical history significant for allergic rhinitis, severe persistent asthma without complication, laryngopharyngeal reflux, liver hemangioma, morbid obesity, stress urinary incontinence, overactive bladder, premenstrual dysmorphic disorder, generalized anxiety disorder comes in because of cough and shortness of breath. About a month ago patient had sore throat. She was prescribed prednisone taper. After completing prednisone taper she again developed sore throat. She was tested for flu and mono and strep throat which were negative. She was prescribed Augmentin and prednisone and told to take Augmentin if it is not working to take prednisone. She took Augmentin seems to help and after finishing of the course about 2 to 3 days later again she started develop this time more of runny nose, cough and shortness of breath. She started taking prednisone yesterday but today symptoms got worse. She is coughing a lot. And has some chest congestion. Some chest tightness which prompted her to come to the ER. In the ER her labs were okay, procalcitonin negative ,D-dimer is negative. Lactic acid came back as 2.9 and we were called for admission. States she was sick for 1 month in the fall. Patient states she has allergy and exercise-induced asthma. Does not think her current symptoms related to allergies. She thinks something else is going on. Denies any headache. No fevers. No nausea. No abdominal pain. She had diarrhea after Augmentin but resolved now. Currently normal bowel and bladder movements. Currently hemodynamics are okay. Shortness of breath Runny nose and cough Chest x-ray okay Labs are okay Respiratory BioFire negative Procalcitonin negative Recently had a course of Augmentin About a month ago had prednisone taper and again restarted prednisone recently Patient has history of allergic rhinitis and allergy and exercise-induced asthma No obvious wheezing on exam D-dimer negative Possible mild asthma exasperation Lactic acid at 2.9 most likely from asthma exacerbation we will follow repeat levels Will continue with prednisone short course and nebs [id number] and as needed and continue home inhalers Will also place on antihistamine nasal spray Monitor in the hospital for response Morbid obesity Nutrition follow-up Had an inconclusive sleep study at home Needs follow-up DVT prophylaxis Lovenox Disposition Med/telemetry Full code History of Present Illness Chief Complaint: Cough and shortness of breath Primary Care Provider: Fortino Plunkett MD 48-year-old female with past medical history significant for allergic rhinitis, severe persistent asthma without complication, laryngopharyngeal reflux, liver hemangioma, morbid obesity, stress urinary incontinence, overactive bladder, premenstrual dysmorphic disorder, generalized anxiety disorder comes in because of cough and shortness of breath. About a month ago patient had sore throat. She was prescribed prednisone taper. After completing prednisone taper she again developed sore throat. She was tested for flu and mono and strep throat which were negative. She was prescribed Augmentin and prednisone and told to take Augmentin if it is not working to take prednisone. She took Augmentin seems to help and after finishing the course about 2 to 3 days later again she started develop this time more of runny nose ,cough and shortness of breath. She started taking prednisone yesterday but today symptoms got worse. She is coughing a lot. And has some chest congestion. Some chest tightness which prompted her to come to the ER. In the ER her labs were okay, procalcitonin negative ,D-dimer is negative. Lactic acid came back as 2.9 and we were called for admission. States she was sick for 1 month in the fall. Patient states she has allergy and exercise-induced asthma. Does not think her current symptoms related to allergies. She thinks something else is going on. Denies any headache. No fevers. No nausea. No abdominal pain. She had diarrhea after Augmentin but resolved now. Currently normal bowel and bladder movements. Currently hemodynamics are okay. Past medical history. As mentioned above. Past surgical history. induced by D&C. Colonoscopy. Colposcopy. Dental surgery. EGD. Laparoscopic cholecystectomy. Left breast biopsy. Reduction of breast. Social history. . No smoking. Alcohol occasional. No drug use. Family history. Mother had breast cancer. Eczema. Osteoarthritis. Father has diabetes. Heart attack. Skin cancer. Maternal uncle has allergies. Maternal aunt has allergies. Sister has high lipids. Allergies Allergy/AdvReac Type Severity Reaction Status Date / Time animal dander Allergy stuffy Verified 09/04/23 22:02 nose, itchy eyes & throat mold Allergy stuffy Verified 09/04/23 22:02 nose, itchy eyes & throat pollen extracts Allergy stuffy Verified 09/04/23 22:02 nose , itchy eyes & throat Home Medications Medication Instructions Recorded Confirmed Type cholecalciferol (vitamin D3) 25 50 mcg PO DAILY 09/04/23 09/04/23 History mcg (1,000 unit) tablet (Vitamin D3) cyanocobalamin (vitamin B-12) 500 0 mcg PO DAILY 09/04/23 09/04/23 History mcg tablet (Vitamin B-12) esomeprazole magnesium 20 mg 20 mg PO DAILY 09/04/23 09/04/23 History capsule,delayed release (Nexium) fluticasone 500 mcg-salmeterol 50 1 ea inhalation BID 09/04/23 09/04/23 History mcg/dose blistr powdr for inhalation gabapentin 100 mg capsule 100 - 200 mg PO DAILY 09/04/23 09/04/23 History levocetirizine 5 mg tablet (Xyzal) 5 mg PO PM 09/04/23 09/04/23 History montelukast 10 mg tablet 10 mg PO QPM 09/04/23 09/04/23 History bzqbaxxj-pls-bvdbsl 5 mg-zeaxanth 1 cap PO DAILY 09/04/23 09/04/23 History 1 mg-bilberry 7.5 mg-herbal capsule ([employer] Formula) multivitamin 1 tab PO DAILY 09/04/23 09/04/23 History tiotropium bromide 2.5 2 puff inhalation DAILY 09/04/23 09/04/23 History mcg/actuation mist for inhalation (Spiriva Respimat) Past Med/Surg History Social History Smoking Status: Never smoker Hx Alcohol Use: Yes Alcohol type: beer, wine and hard liquor Hx Substance Use: No Beliefs That Will Affect Care: None Current Living Situation: Spouse Feels Safe at Home: Yes Review of Systems Review of Systems: All systems reviewed & are unremarkable except as noted in HPI & below Physical Exam Physical Exam: General- Not in distress Head- atraumatic Eyes- PERRL, ENT- oropharynx clear Neck- supple, no JVD Lungs- clear to auscultation no obvious wheezing or crackles. Heart- regular rhythm; no murmur, no gallop Abdomen- normal bowel sounds, soft, nontender, no distension. Extremities- no pretibial edema, no erythema seen Neuro- alert, oriented PERRL,no facial palsy; no dysarthria; moves extremities. Results & Data Results & Data Vital Signs (Past 12 Hours) Vital Signs Temp Pulse Pulse Resp BP BP Pulse Ox 09/04/23 22:38 87 09/04/23 22:00 37.3 C 87 16 98 09/04/23 20:54 89 23 149/72 H 97 09/04/23 19:30 83 17 98 09/04/23 19:00 87 17 98 09/04/23 18:38 09/04/23 18:38 09/04/23 18:30 91 H 09/04/23 18:30 95 H 21 98 09/04/23 18:30 96/75 L 09/04/23 18:14 36.4 C L 94 H 18 199/93 H 97 O2 Del Method O2 Flow Rate 09/04/23 22:38 09/04/23 22:00 Room Air 09/04/23 20:54 09/04/23 19:30 09/04/23 19:00 09/04/23 18:38 Room Air 09/04/23 18:38 Room Air 98 09/04/23 18:30 09/04/23 18:30 09/04/23 18:30 09/04/23 18:14 Room Air Diagnostic Findings Laboratory Results WBC 12.67 K/ul (4.8-10.8) H 09/04/23 18:48 RBC 4.33 M/uL (4.20-5.40) 09/04/23 18:48 Hgb 12.3 g/dl (12.0-16.0) 09/04/23 18:48 Hct 37.2 % (37.0-47.0) 09/04/23 18:48 MCV 85.9 fL (80.0-100.0) 09/04/23 18:48 MCH 28.4 pg (25.0-34.0) 09/04/23 18:48 MCHC 33.1 g/dL (32.0-36.0) 09/04/23 18:48 RDW Std Deviation 43.6 fL (36.4-46.3) 09/04/23 18:48 RDW Coeff of Myrna 14.0 % (11.5-14.5) 09/04/23 18:48 Plt Count 298 K/uL (130-400) 09/04/23 18:48 MPV 9.8 fL (9.4-12.4) 09/04/23 18:48 Immature Gran % (Auto) 0.7 % 09/04/23 18:48 Neut % (Auto) 76.2 % 09/04/23 18:48 Lymph % (Auto) 14.8 % 09/04/23 18:48 [place] % (Auto) 8.1 % 09/04/23 18:48 Eos % (Auto) 0.0 % 09/04/23 18:48 Baso % (Auto) 0.2 % 09/04/23 18:48 Neut # (Auto) 9.65 K/uL (1.40-6.50) H 09/04/23 18:48 Lymph # (Auto) 1.87 K/uL (1.20-3.40) 09/04/23 18:48 [place] # (Auto) 1.03 K/uL (0.11-0.59) H 09/04/23 18:48 Eos # (Auto) 0.00 K/uL (0.00-0.50) 09/04/23 18:48 Baso # (Auto) 0.03 K/uL (0.00-0.20) 09/04/23 18:48 Immature Gran # (Auto) 0.09 K/uL (0.01-0.20) 09/04/23 18:48 D-Dimer 470 ug/L FEU (0-500) 09/04/23 18:48 Sodium 137 mmol/L (136-145) 09/04/23 18:48 Potassium 3.6 mmol/L (3.5-5.1) 09/04/23 18:48 Chloride 105 mmol/L (98-107) 09/04/23 18:48 Carbon Dioxide 21 mmol/L (21-32) 09/04/23 18:48 Anion Gap 11 (3-11) 09/04/23 18:48 BUN 12 mg/dl (6-23) 09/04/23 18:48 Creatinine 0.77 mg/dl (0.6-1.2) 09/04/23 18:48 Est Cr Clr Drug Dosing 112.3 ml/min 09/04/23 18:48 Est GFR ( Amer) 105.1 ml/min 09/04/23 18:48 Est GFR (Non-Af Amer) 90.7 ml/min 09/04/23 18:48 BUN/Creatinine Ratio 15.6 (10-20) 09/04/23 18:48 Glucose 172 mg/dl (70-99(Fasting)) H 09/04/23 18:48 Lactate 2.9 mmol/L (0.4-2.0) H* 09/04/23 20:35 Calcium 8.9 mg/dl (8.6-10.3) 09/04/23 18:48 Total Bilirubin 0.2 mg/dl (0.2-1.0) 09/04/23 18:48 AST 18 U/L (13-39) 09/04/23 18:48 ALT 17 U/L (7-52) 09/04/23 18:48 Alkaline Phosphatase 76 U/L (34-104) 09/04/23 18:48 Total Protein 7.5 gm/dl (6.0-8.3) 09/04/23 18:48 Albumin 3.9 gm/dl (3.4-5.0) 09/04/23 18:48 Globulin 3.6 gm/dl (2.5-4.0) 09/04/23 18:48 Albumin/Globulin Ratio 1.1 (0.9-2) 09/04/23 18:48 Procalcitonin < 0.02 ng/ml (0-0.5) 09/04/23 18:48 Urine Color Yellow 09/04/23 22: Urine Appearance Clear (Clear) 09/04/23 22: Urine pH 5.5 (4.5-7.5) 09/04/23 22: Ur Specific [place] 1.018 (1.000-1.030) 09/04/23 22: Urine Protein Negative (Negative) 09/04/23: Urine Glucose (UA) Negative (Negative) 09/04/23 22: Urine Ketones Negative (Negative) 09/04/23 22: Urine Blood Negative (Negative) 09/04/23 22: Urine Nitrite Negative (Negative) 09/04/23 22: Urine Bilirubin Negative (Negative) 09/04/23 22:29 Urine Urobilinogen Negative (Negative) 09/04/23 22:29 Ur Leukocyte Esterase Negative (Negative) 09/04/23 22:29 Adenovirus (PCR) Not Detected (NotDetected) 09/04/23 18:48 B. pertussis DNA (PCR) Not Detected (NotDetected) 09/04/23 18:48 B.parapertussis DNA PCR Not Detected (NotDetected) 09/04/23 18:48 C. pneumoniae DNA (PCR) Not Detected (NotDetected) 09/04/23 18:48 Coronavirus OC43 (PCR) Not Detected (NotDetected) 09/04/23 18:48 Coronavirus HKU1 (PCR) Not Detected (NotDetected) 09/04/23 18:48 Coronavirus 229E (PCR) Not Detected (NotDetected) 09/04/23 18:48 SARS-CoV-2 (PCR) Not Detected (NotDetected) 09/04/23 18:48 Coronavirus NL63 (PCR) Not Detected (NotDetected) 09/04/23 18:48 Monoscreen Negative (Negative) 09/04/23 18:48 Human Metapneumovir PCR Not Detected (NotDetected) 09/04/23 18:48 Influenza Type A (PCR) Not Detected (NotDetected) 09/04/23 18:48 Influenza Type B (PCR) Not Detected (NotDetected) 09/04/23 18:48 M. pneumoniae (PCR) Not Detected (NotDetected) 09/04/23 18:48 Parainfluenza 1 (PCR) Not Detected (NotDetected) 09/04/23 18:48 Parainfluenza 2 (PCR) Not Detected (NotDetected) 09/04/23 18:48 Parainfluenza 3 (PCR) Not Detected (NotDetected) 09/04/23 18:48 Parainfluenza 4 (PCR) Not Detected (NotDetected) 09/04/23 18:48 RSV (PCR) Not Detected (NotDetected) 09/04/23 18:48 Entero/Rhino (PCR) Not Detected (NotDetected) 09/04/23 18:48 Group A Strep (PCR) NOT DETECTED (NotDetected) 09/04/23 18:48 Impressions Chest X-Ray 09/04/23 18:40 XR chest 2V PA/lateral CLINICAL HISTORY: cough, shob TECHNIQUE: 2 views of the chest were obtained. Comparison: Comparison is made to chest radiograph 04/15/2017 FINDINGS: No lines and tubes are seen. The cardiomediastinal silhouette is normal. The lungs are clear. No evidence of pleural effusion or pneumothorax. IMPRESSION: No acute abnormalities and in particular no radiographic evidence of pneumonia. ACT 112: Negative or not required by law. Electronically signed by: Kelvin Fisher M.D. 09/04/2023 7:27 PM Code Status & VTE Plan VTE Prophylaxis Plan VTE Prophylaxis will be ordered: Yes
[2023-09-05] MEDS ORDERED: POLYETHYLENE (MIRALAX) 17 GM PACK PO PRN (00:48)
[2023-09-05] MEDS ORDERED: ALBUT/IPRATROP 3MG/0.5MG NEB 3 ML VIAL NEB PRN (00:48)
[2023-09-05] MEDS ORDERED: NITROGLYCERIN SL 0.4 MG/TAB TAB SL PRN (00:48)
[2023-09-05 01:24] LABS: Troponin I High Sensitivity 2.5 pg/ml (0-14)
[2023-09-05] MEDS: AZELASTINE HCL 0.1% NASAL 200 SPRAYS/27,400 MCG BTL SCH (01:30)
[2023-09-05] MEDS: PIPER/TAZO 4.5g in D5W MINI-B 100 ML IV ONE (01:31)
[2023-09-05] MEDS: SODIUM CHLORIDE 0.9% 1,000 ML IV SCH (01:31)
[2023-09-05] MEDS: PIPERACILLIN/TAZOBACTAM 4.5 GM in DEXTROSE 5% MINI-B 100 ML IV SCH (05:33)
[2023-09-05 05:54] LABS: Basophils # (auto) 0.01 K/uL (0.00-0.20); Basophils % (auto) 0.1 %; Eosinophils # (auto) 0.01 K/uL (0.00-0.50); Eosinophils % (auto) 0.1 %; Hematocrit (blood only) 33.6 % (37.0-47.0); Hemoglobin 11.1 g/dl (12.0-16.0); Lymphocytes # (auto) 1.78 K/uL (1.20-3.40); Lymphocytes % (auto) 17.5 %; Mean Corpuscular Hemoglobin 28.5 pg (25.0-34.0); Mean Corpuscular Volume 86.2 fL (80.0-100.0); Mean Platelet Volume 9.8 fL (9.4-12.4); Monocytes # (auto) 0.75 K/uL (0.11-0.59); Monocytes % (auto) 7.4 %; Neutrophils % (auto) 73.9 %; Platelet Count 290 K/uL (130-400); RDW Coefficient of Variation 14.3 % (11.5-14.5); RDW Standard Deviation 44.5 fL (36.4-46.3); White Blood Count 10.15 K/ul (4.8-10.8)
[2023-09-05 06:08] LABS: Calcium 8.1 mg/dl (8.6-10.3); Creatinine Clr Calc Pharmacy 145.1 ml/min
[2023-09-05] MEDS: ALBUT/IPRATROP 3MG/0.5MG NEB 3 ML VIAL NEB SCH (07:48)
[2023-09-05] MEDS: MULTIVITAMIN TAB PO SCH (08:08)
[2023-09-05] MEDS: CEROVITE ADV FORMULA TAB PO SCH (08:08)
[2023-09-05] MEDS: GABAPENTIN 100 MG CAP PO SCH (08:08)
[2023-09-05] MEDS: predniSONE 20 MG TAB PO SCH (08:09)
[2023-09-05] MEDS: PANTOprazole 40 MG TAB PO SCH (08:09)
[2023-09-05] MEDS: CHOLECALCIFEROL 25 MCG (1000 UNITS) TAB PO SCH (08:09)
[2023-09-05] MEDS: ENOXAPARIN INJ 40 MG/0.4 ML SYR SQ SCH (08:09)
[2023-09-05] MEDS: UMECLIDINIUM BROMIDE 62.5MCG/BLISTER 7 PUFFS/INHALER INH SCH (08:10)
[2023-09-05] MEDS: FLUTICASONE/VILANTEROL 200/25MCG 14 PUFFS/INHALER INH SCH (08:11)
--- NOTE | 2023-09-05 08:54 | Hospitalist Progress Note ---
Date of Service September 05, 2023 Assessment & Plan (1) SOB (shortness of breath): Plan: 48-year-old female with past medical history significant for allergic rhinitis, severe persistent asthma without complication, laryngopharyngeal reflux, liver hemangioma, morbid obesity, stress urinary incontinence, overactive bladder, premenstrual dysmorphic disorder, generalized anxiety disorder comes in because of cough and shortness of breath. About a month ago patient had sore throat. She was prescribed prednisone taper. After completing prednisone taper she again developed sore throat. She was tested for flu and mono and strep throat which were negative. She was prescribed Augmentin and prednisone and told to take Augmentin if it is not working to take prednisone. She took Augmentin seems to help and after finishing of the course about 2 to 3 days later again she started develop this time more of runny nose, cough and shortness of breath. She started taking prednisone yesterday but today symptoms got worse. She is coughing a lot. And has some chest congestion. Some chest tightness which prompted her to come to the ER. In the ER her labs were okay, procalcitonin negative ,D-dimer is negative. Lactic acid came back as 2.9 and we were called for admission. States she was sick for 1 month in the fall. Patient states she has allergy and exercise-induced asthma. Does not think her current symptoms related to allergies. She thinks something else is going on. Denies any headache. No fevers. No nausea. No abdominal pain. She had diarrhea after Augmentin but resolved now. Currently normal bowel and bladder movements. Currently hemodynamics are okay. Shortness of breath + nasal / sinus congestion + cough Chest x-ray unremarkable Labs unremarkable Respiratory BioFire negative Procalcitonin negative Recently had a course of Augmentin About a month ago had prednisone taper and again restarted prednisone recently Patient has history of allergic rhinitis and allergy and exercise-induced asthma No obvious wheezing on exam D-dimer negative Possible mild asthma exasperation Lactic acid at 2.9 most likely from asthma exacerbation. Repeat lactic acid normalized now Will continue with prednisone short course and nebs [id number] and as needed and continue home inhalers Added antihistamine nasal spray Monitor in the hospital for response Morbid obesity Nutrition follow-up Had an inconclusive sleep study at home Needs follow-up DVT prophylaxis Lovenox Disposition Med/telemetry Full code Admission and Anticipated Discharge Date Admission Date: September 04, 2023 Subjective Pt seen in follow up of shortness of breath, recently treated with abx and steroid as outpt, elev. lactic acid Elev. lactic acid now resolved Patient seen laying in bed, in no acute distress, however reports that she feels worse than when she was previously treated as outpatient She feels congested, has a productive cough. Will obtain sputum culture. Patient reports yellow sputum. Previously says that she did not have any cough. Currently no fevers chills, no chest pain. Review of Systems Review of Systems: All systems reviewed & are unremarkable except as noted in Subjective Physical Exam Physical Exam: General- obese F in NAD, on RA Head- atraumatic Eyes- PERRL, ENT- oropharynx clear Neck- supple, no JVD Lungs- clear to auscultation no obvious wheezing or crackles. Heart- regular rhythm; no murmur Abdomen- normal bowel sounds, soft, nontender, no distension. Extremities- no pretibial edema, no erythema seen Neuro- alert, oriented PERRL,no facial palsy; no dysarthria; moves extremities. Results & Data Results & Data Vital Signs (Past 12 Hours) Vital Signs Temp Pulse Pulse Pulse Resp BP BP 09/05/23 08:03 36.8 C 79 15 09/05/23 07:50 72 18 09/05/23 07:13 70 09/05/23 03:11 36.9 C 84 16 09/05/23 02:31 83 09/05/23 00:44 09/05/23 00:37 36.9 C 89 22 156/81 H 09/05/23 00:19 37.5 C 81 18 154/67 H 09/05/23 00:00 37.5 C 88 18 154/67 H 09/04/23 22:38 87 09/04/23 22:00 37.3 C 87 16 09/04/23 20:54 89 23 149/72 H BP Pulse Ox O2 Del Method 09/05/23 08:03 147/85 H 97 Room Air 09/05/23 07:50 97 Room Air 09/05/23 07:13 09/05/23 03:11 153/75 H 97 Room Air 09/05/23 02:31 09/05/23 00:44 Room Air 09/05/23 00:37 97 Room Air 09/05/23 00:19 98 Room Air 09/05/23 00:00 97 Room Air 09/04/23 22:38 09/04/23 22:00 98 Room Air 09/04/23 20:54 97 Laboratory Results 09/05/23 09/05/23 09/04/23 Range/Units 07:17 05:28 23:19 WBC 10.15 (4.8-10.8) K/ul RBC 3.90 L (4.20-5.40) M/uL Hgb 11.1 L (12.0-16.0) g/dl Hct 33.6 L (37.0-47.0) % MCV 86.2 (80.0-100.0) fL MCH 28.5 (25.0-34.0) pg MCHC 33.0 (32.0-36.0) g/dL RDW Std Deviation 44.5 (36.4-46.3) fL RDW Coeff of Myrna 14.3 (11.5-14.5) % Plt Count 290 (130-400) K/uL MPV 9.8 (9.4-12.4) fL Immature Gran % (Auto) 1.0 % Neut % (Auto) 73.9 % Lymph % (Auto) 17.5 % [place] % (Auto) 7.4 % Eos % (Auto) 0.1 % Baso % (Auto) 0.1 % Neut # (Auto) 7.50 H (1.40-6.50) K/uL Lymph # (Auto) 1.78 (1.20-3.40) K/uL [place] # (Auto) 0.75 H (0.11-0.59) K/uL Eos # (Auto) 0.01 (0.00-0.50) K/uL Baso # (Auto) 0.01 (0.00-0.20) K/uL Immature Gran # (Auto) 0.10 (0.01-0.20) K/uL D-Dimer (0-500) ug/L FEU Sodium 140 (136-145) mmol/L Potassium 4.0 (3.5-5.1) mmol/L Chloride 110 H (98-107) mmol/L Carbon Dioxide 21 (21-32) mmol/L Anion Gap 9 (3-11) BUN 9 (6-23) mg/dl Creatinine 0.60 (0.6-1.2) mg/dl Est Cr Clr Drug Dosing 145.1 ml/min Est GFR ( Amer) 124.0 ml/min Est GFR (Non-Af Amer) 107.0 ml/min BUN/Creatinine Ratio 15.0 (10-20) Glucose 122 H (70-99(Fasting)) mg/dl Lactate 1.9 3.0 H* (0.4-2.0) mmol/L Calcium 8.1 L (8.6-10.3) mg/dl Magnesium 2.0 (1.7-2.4) mg/dl Total Bilirubin (0.2-1.0) mg/dl AST (13-39) U/L ALT (7-52) U/L Alkaline Phosphatase (34-104) U/L Troponin I High Sens (0-14) pg/ml Total Protein (6.0-8.3) gm/dl Albumin (3.4-5.0) gm/dl Globulin (2.5-4.0) gm/dl Albumin/Globulin Ratio (0.9-2) Procalcitonin (0-0.5) ng/ml Urine Color Urine Appearance (Clear) Urine pH (4.5-7.5) Ur Specific [place] (1.000-1.030) Urine Protein (Negative) Urine Glucose (UA) (Negative) Urine Ketones (Negative) Urine Blood (Negative) Urine Nitrite (Negative) Urine Bilirubin (Negative) Urine Urobilinogen (Negative) Ur Leukocyte Esterase (Negative) Adenovirus (PCR) (NotDetected) B. pertussis DNA (PCR) (NotDetected) B.parapertussis DNA PCR (NotDetected) C. pneumoniae DNA (PCR) (NotDetected) Coronavirus OC43 (PCR) (NotDetected) Coronavirus HKU1 (PCR) (NotDetected) Coronavirus 229E (PCR) (NotDetected) SARS-CoV-2 (PCR) (NotDetected) Coronavirus NL63 (PCR) (NotDetected) Monoscreen (Negative) Human Metapneumovir PCR (NotDetected) Influenza Type A (PCR) (NotDetected) Influenza Type B (PCR) (NotDetected) M. pneumoniae (PCR) (NotDetected) Parainfluenza 1 (PCR) (NotDetected) Parainfluenza 2 (PCR) (NotDetected) Parainfluenza 3 (PCR) (NotDetected) Parainfluenza 4 (PCR) (NotDetected) RSV (PCR) (NotDetected) Entero/Rhino (PCR) (NotDetected) Group A Strep (PCR) (NotDetected) 09/04/23 09/04/23 09/04/23 Range/Units 22:29 20:35 18:48 WBC 12.67 H (4.8-10.8) K/ul RBC 4.33 (4.20-5.40) M/uL Hgb 12.3 (12.0-16.0) g/dl Hct 37.2 (37.0-47.0) % MCV 85.9 (80.0-100.0) fL MCH 28.4 (25.0-34.0) pg MCHC 33.1 (32.0-36.0) g/dL RDW Std Deviation 43.6 (36.4-46.3) fL RDW Coeff of Myrna 14.0 (11.5-14.5) % Plt Count 298 (130-400) K/uL MPV 9.8 (9.4-12.4) fL Immature Gran % (Auto) 0.7 % Neut % (Auto) 76.2 % Lymph % (Auto) 14.8 % [place] % (Auto) 8.1 % Eos % (Auto) 0.0 % Baso % (Auto) 0.2 % Neut # (Auto) 9.65 H (1.40-6.50) K/uL Lymph # (Auto) 1.87 (1.20-3.40) K/uL [place] # (Auto) 1.03 H (0.11-0.59) K/uL Eos # (Auto) 0.00 (0.00-0.50) K/uL Baso # (Auto) 0.03 (0.00-0.20) K/uL Immature Gran # (Auto) 0.09 (0.01-0.20) K/uL D-Dimer 470 (0-500) ug/L FEU Sodium 137 (136-145) mmol/L Potassium 3.6 (3.5-5.1) mmol/L Chloride 105 (98-107) mmol/L Carbon Dioxide 21 (21-32) mmol/L Anion Gap 11 (3-11) BUN 12 (6-23) mg/dl Creatinine 0.77 (0.6-1.2) mg/dl Est Cr Clr Drug Dosing 112.3 ml/min Est GFR ( Amer) 105.1 ml/min Est GFR (Non-Af Amer) 90.7 ml/min BUN/Creatinine Ratio 15.6 (10-20) Glucose 172 H (70-99(Fasting)) mg/dl Lactate 2.9 H* (0.4-2.0) mmol/L Calcium 8.9 (8.6-10.3) mg/dl Magnesium (1.7-2.4) mg/dl Total Bilirubin 0.2 (0.2-1.0) mg/dl AST 18 (13-39) U/L ALT 17 (7-52) U/L Alkaline Phosphatase 76 (34-104) U/L Troponin I High Sens 2.5 (0-14) pg/ml Total Protein 7.5 (6.0-8.3) gm/dl Albumin 3.9 (3.4-5.0) gm/dl Globulin 3.6 (2.5-4.0) gm/dl Albumin/Globulin Ratio 1.1 (0.9-2) Procalcitonin < 0.02 (0-0.5) ng/ml Urine Color Yellow Urine Appearance Clear (Clear) Urine pH 5.5 (4.5-7.5) Ur Specific Manning 1.018 (1.000-1.030) Urine Protein Negative (Negative) Urine Glucose (UA) Negative (Negative) Urine Ketones Negative (Negative) Urine Blood Negative (Negative) Urine Nitrite Negative (Negative) Urine Bilirubin Negative (Negative) Urine Urobilinogen Negative (Negative) Ur Leukocyte Esterase Negative (Negative) Adenovirus (PCR) Not Detected (NotDetected) B. pertussis DNA (PCR) Not Detected (NotDetected) B.parapertussis DNA PCR Not Detected (NotDetected) C. pneumoniae DNA (PCR) Not Detected (NotDetected) Coronavirus OC43 (PCR) Not Detected (NotDetected) Coronavirus HKU1 (PCR) Not Detected (NotDetected) Coronavirus 229E (PCR) Not Detected (NotDetected) SARS-CoV-2 (PCR) Not Detected (NotDetected) Coronavirus NL63 (PCR) Not Detected (NotDetected) Monoscreen Negative (Negative) Human Metapneumovir PCR Not Detected (NotDetected) Influenza Type A (PCR) Not Detected (NotDetected) Influenza Type B (PCR) Not Detected (NotDetected) M. pneumoniae (PCR) Not Detected (NotDetected) Parainfluenza 1 (PCR) Not Detected (NotDetected) Parainfluenza 2 (PCR) Not Detected (NotDetected) Parainfluenza 3 (PCR) Not Detected (NotDetected) Parainfluenza 4 (PCR) Not Detected (NotDetected) RSV (PCR) Not Detected (NotDetected) Entero/Rhino (PCR) Not Detected (NotDetected) Group A Strep (PCR) NOT DETECTED (NotDetected) Medications Administered Current Inpatient Medications Acetaminophen (Acetaminophen 325 Mg Tab) 650 mg PO Q4H PRN PRN Reason: Pain or Fever Stop: 10/05/23 00:47 Albuterol (Albut/Ipratrop 3mg/0.5mg Neb 3 Ml Vial) 3 ml NEB QIDR [facility]; Protocol Stop: 10/05/23 06:59 Last Admin: 09/05/23 07:48 Dose: 3 ml Albuterol (Albut/Ipratrop 3mg/0.5mg Neb 3 Ml Vial) 3 ml NEB Q4H PRN; Protocol PRN Reason: Shortness Of Breath Or Wheezing Stop: 10/05/23 00:47 Azelastine HCl (Azelastine Hcl 0.1% Nasal 200 Sprays/27,400 Mcg Btl) 1 sprays NA BID [facility] Stop: 10/05/23 00:47 Last Admin: 09/05/23 08:17 Dose: 1 sprays Cetirizine HCl (Cetirizine Hcl 10 Mg Tablet) 10 mg PO PM [facility] Stop: 10/05/23 20:59 Doxycycline Hyclate (Doxycycline Hyclate 100 Mg Cap) 100 mg PO BID [facility] Stop: 09/12/23 08:59 Enoxaparin Sodium (Enoxaparin Inj 40 Mg/0.4 Ml Syr) 40 mg SQ Q12H [facility] Stop: 10/05/23 08:59 Last Admin: 09/05/23 08:09 Dose: 40 mg Fluticasone/Vilanterol (Fluticasone/Vilanterol 200/25mcg 14 Puffs/Inhaler) 1 puffs INH DAILY [facility] Stop: 10/05/23 08:59 Last Admin: 09/05/23 08:11 Dose: 1 puffs Gabapentin (Gabapentin 100 Mg Cap) 100 mg PO DAILY [facility] Stop: 10/05/23 08:59 Last Admin: 09/05/23 08:08 Dose: 100 mg Guaifenesin (Guaifenesin 600 Mg Tabcr) 600 mg PO Q12 [facility] Stop: 10/05/23 08:59 Piperacillin Sod/Tazobactam (Sod 4.5 gm/ Dextrose) 100 mls @ 25 mls/hr IV Q8H [facility]; Protocol Stop: 09/07/23 05:59 Last Admin: 09/05/23 05:33 Dose: 25 mls/hr Montelukast Sodium (Montelukast Sodium 10 Mg Tablet) 10 mg PO QPM [facility] Stop: 10/05/23 20:59 Multivitamins (Multivitamin Tab) 1 tab PO DAILY [facility] Stop: 10/05/23 08:59 Last Admin: 09/05/23 08:08 Dose: 1 tab Multivitamins/Minerals (Cerovite Adv Formula Tab) 1 tab PO DAILY [facility] Stop: 10/05/23 08:59 Last Admin: 09/05/23 08:08 Dose: 1 tab Nitroglycerin (Nitroglycerin Sl 0.4 Mg/Tab Tab) 0.4 mg SL Q5M PRN PRN Reason: Chest Pain Stop: 10/05/23 00:47 Pantoprazole Sodium (Pantoprazole 40 Mg Tab) 40 mg PO DAILY [facility] Stop: 10/05/23 08:59 Last Admin: 09/05/23 08:09 Dose: 40 mg Polyethylene Glycol (Polyethylene (Miralax) 17 Gm Pack) 17 gm PO DAILY PRN PRN Reason: Constipation Stop: 10/05/23 00:47 Prednisone (Prednisone 20 Mg Tab) 40 mg PO DAILY [facility] Stop: 10/05/23 08:59 Last Admin: 09/05/23 08:09 Dose: 40 mg Umeclidinium [place] (Umeclidinium [place] 62.5mcg/Blister 7 Puffs/Inhaler) 1 puffs INH DAILY [facility] Stop: 10/05/23 08:59 Last Admin: 09/05/23 08:10 Dose: 1 puffs Vitamin D (Cholecalciferol 25 Mcg (1000 Units) Tab) 50 mcg PO DAILY [facility] Stop: 10/05/23 08:59 Last Admin: 09/05/23 08:09 Dose: 50 mcg
[2023-09-05] MEDS: DOXYCYCLINE HYCLATE 100 MG CAP PO SCH (09:28)
[2023-09-05] MEDS: guaiFENesin 600 MG TABCR PO SCH (09:28)
[2023-09-05] MEDS: ACETAMINOPHEN 325 MG TAB PO PRN (18:11)
[2023-09-05] MEDS: CETIRIZINE HCL 10 MG TABLET PO SCH (20:38)
[2023-09-05] MEDS: MONTELUKAST SODIUM 10 MG TABLET PO SCH (20:38)
[2023-09-05] MEDS: SODIUM CHLORIDE 0.65% NA SOLN 45 ML (OCEAN) SCH (20:45)
[2023-09-06 06:39] LABS: Hematocrit (blood only) 34.2 % (37.0-47.0); Hemoglobin 10.9 g/dl (12.0-16.0); Mean Corpuscular Hemoglobin 27.5 pg (25.0-34.0); Mean Corpuscular Hgb Conc 31.9 g/dL (32.0-36.0); Mean Corpuscular Volume 86.4 fL (80.0-100.0); Mean Platelet Volume 9.7 fL (9.4-12.4); Platelet Count 284 K/uL (130-400); RDW Coefficient of Variation 14.6 % (11.5-14.5); RDW Standard Deviation 46.6 fL (36.4-46.3); Red Blood Count 3.96 M/uL (4.20-5.40)
[2023-09-06 07:23] LABS: BUN Creatinine Ratio 19.7 (10-20); Calcium 8.3 mg/dl (8.6-10.3); Creatinine Clr Calc Pharmacy 131.7 ml/min; Est GFR (African American) 120.2 ml/min; Est GFR (Non-African American) 103.7 ml/min; Magnesium 2.1 mg/dl (1.7-2.4); Phosphorus 2.6 mg/dl (2.5-4.9); Potassium 3.4 mmol/L (3.5-5.1)
[2023-09-06] MEDS: POTASSIUM CHLORIDE CRTAB 20 MEQ TABCR PO STA (08:17)
[2023-09-06] MEDS: guaiFENesin 600 MG TABCR PO ONE (13:01)
[2023-09-06] MEDS: OXYMETAZOLINE 0.05% 30 ML BTL NAE ONE (13:01)
--- NOTE | 2023-09-06 14:50 | Discharge Summary ---
Date of Service September 06, 2023 Admission HPI Per Admitting Provider 48-year-old female with past medical history significant for allergic rhinitis, severe persistent asthma without complication, laryngopharyngeal reflux, liver hemangioma, morbid obesity, stress urinary incontinence, overactive bladder, premenstrual dysmorphic disorder, generalized anxiety disorder comes in because of cough and shortness of breath. About a month ago patient had sore throat. She was prescribed prednisone taper. After completing prednisone taper she again developed sore throat. She was tested for flu and mono and strep throat which were negative. She was prescribed Augmentin and prednisone and told to take Augmentin if it is not working to take prednisone. She took Augmentin seems to help and after finishing the course about 2 to 3 days later again she started develop this time more of runny nose ,cough and shortness of breath. She started taking prednisone yesterday but today symptoms got worse. She is coughing a lot. And has some chest congestion. Some chest tightness which prom pted her to come to the ER. In the ER her labs were okay, procalcitonin negative ,D-dimer is negative. Lactic acid came back as 2.9 and we were called for admission. States she was sick for 1 month in the fall. Patient states she has allergy and exercise-induced asthma. Does not think her current symptoms related to allergies. She thinks something else is going on. Denies any headache. No fevers. No nausea. No abdominal pain. She had diarrhea after Augmentin but resolved now. Currently normal bowel and bladder movements. Currently hemodynamics are okay. Past medical history. As mentioned above. Past surgical history. induced by D&C. Colonoscopy. Colposcopy. Dental surgery. EGD. Laparoscopic cholecystectomy. Left breast biopsy. Reduction of breast. Social history. . No smoking. Alcohol occasional. No drug use. Family history. Mother had breast cancer. Eczema. Osteoarthritis. Father has diabetes. Heart attack. Skin cancer. Maternal uncle has allergies. Maternal aunt has allergies. Sister has high lipids. Admission Exam Per Admitting Provider General- Not in distress Head- atraumatic Eyes- PERRL, ENT- oropharynx clear Neck- supple, no JVD Lungs- clear to auscultation no obvious wheezing or crackles. Heart- regular rhythm; no murmur, no gallop Abdomen- normal bowel sounds, soft, nontender, no distension. Extremities- no pretibial edema, no erythema seen Neuro- alert, oriented PERRL,no facial palsy; no dysarthria; moves extremities. Principal Diagnosis URI, poss. asthma exacerbation, Elevated lactic acid Discharge Exam General- obese F in NAD, on RA Head- atraumatic Eyes- PERRL Neck- supple, no JVD Lungs- clear to auscultation no obvious wheezing or crackles. Heart- regular rhythm; no murmur Abdomen- normal bowel sounds, soft, nontender, no distension. Extremities- no pretibial edema, no erythema seen Neuro- alert, oriented PERRL,no facial palsy; no dysarthria; moves extremities. Discharge Data Allergies Allergy/AdvReac Type Severity Reaction Status Date / Time animal dander Allergy stuffy Verified 09/04/23 22:02 nose, itchy eyes & throat mold Allergy stuffy Verified 09/04/23 22:02 nose, itchy eyes & throat pollen extracts Allergy stuffy Verified 09/04/23 22:02 nose , itchy eyes & throat Consultations 09/04/23 21:35 ED Decision to Admit Stat Hospital Course (1) SOB (shortness of breath): 48-year-old female with past medical history significant for allergic rhinitis, severe persistent asthma without complication, laryngopharyngeal reflux, liver hemangioma, morbid obesity, stress urinary incontinence, overactive bladder, premenstrual dysmorphic disorder, generalized anxiety disorder comes in because of cough and shortness of breath. About a month ago patient had sore throat. She was prescribed prednisone taper. After completing prednisone taper she again developed sore throat. She was tested for flu and mono and strep throat w hich were negative. She was prescribed Augmentin and prednisone and told to take Augmentin if it is not working to take prednisone. She took Augmentin seems to help and after finishing of the course about 2 to 3 days later again she started develop this time more of runny nose, cough and shortness of breath. She started taking prednisone yesterday but today symptoms got worse. She is coughing a lot. And has some chest congestion. Some chest tightness which prompted her to come to the ER. In the ER her labs were okay, procalcitonin negative ,D-dimer is negative. Lactic acid came back as 2.9 and we were called for admission. States she was sick for 1 month in the fall. Patient states she has allergy and exercise-induced asthma. Does not think her current symptoms related to allergies. She thinks something else is going on. Denies any headache. No fevers. No nausea. No abdominal pain. She had diarrhea after Augmentin but resolved now. Currently normal bowel and bladder movements. Currently hemodynamics are okay. Shortness of breath + nasal / sinus congestion + cough Chest x-ray unremarkable Labs unremarkable Respiratory BioFire negative Procalcitonin negative Recently had a course of Augmentin About a month ago had prednisone taper and again restarted prednisone recently Patient has history of allergic rhinitis and allergy and exercise-induced asthma No obvious wheezing on exam D-dimer negative Possible mild asthma exacerbation Lactic acid at 2.9 most likely from asthma exacerbation. Repeat lactic acid normalized now Will continue with prednisone short course and nebs [id number] and as needed and continue home inhalers Added antihistamine nasal spray Monitor in the hospital for response Still with nasal congestion earlier today - used afrin - and pt feels her symptoms are much improved. Also says she has nebulizer at home and would like to be discharged home. Discussed that sputum cultx is not back yet - and she does not wish to wait for results. She feels much improved. Reports she still has prednisone taper at home, and also azithromycin prescribed by ER doc. Will have her take azithromycin, prednisone taper, guaifenesin, antihistamine nasal spray and afrin(this one only for up to next 3 days), nebs and will have her follow up with PCP. She may benefit from following up with pulmonary doctor. Morbid obesity Nutrition follow-up Had an inconclusive sleep study at home Needs follow-up Total Time Total Time Spent Total Time Spent (In Minutes): 40 Discharge Plan Discharge Items Patient Disposition: Home - Self-Care Reason For Visit: SOB, ELEVATED LACTIC ACID Discharge Diagnosis: URI, poss. asthma exacerbation, Elevated lactic acid Activity: Per Instructions section Non-emergency contact: Primary Care Provider Call non-emergency contact if: you have any medication questions and your symptoms worsen Follow-up/Referrals: Fortino Plunkett MD [Primary Care Provider] - (Date & Time 09/13/2023 2:40 PM Provider Fortino Plunkett MD Department [facility] ) Diet: Heart Healthy Addtl Attending Provider Instructions: Follow up with your primary care physician within 1 week. You may also benefit from following up with a pulmonary doctor. Finish already prescribed steroid taper. Take azithromycin as prescribed by the ER doctor. Take guaifenesin. Follow up on sputum cultx with your primary care doctor. You can use afrin - nasal spray - for next 3 days. Pending Studies at Discharge: Yes Studies:: sputum cultx results Stand-Alone Forms: My [facility], Smoking Cessation Medications and DC Order Prescriptions: New guaifenesin [Mucinex] 600 mg Tablet Extended Release 12hr 600 mg PO Q12 10 Days Qty: 20 0RF azelastine 137 mcg (0.1 %) Aerosol,Delight 1 spray NA BID Qty: 30 0RF oxymetazoline [Afrin (oxymetazoline)] 0.05 % spray,non-aerosol 2 spray intranasal BID 3 Days Qty: 15 0RF Continued multivitamin Tablet 1 tab PO DAILY cyanocobalamin (vitamin B-12) [Vitamin B-12] 500 mcg Tablet 0 mcg PO DAILY fluticasone propion-salmeterol 500-50 mcg/dose blister with device 1 ea INHALATION BID montelukast 10 mg tablet 10 mg PO QPM gabapentin 100 mg capsule 100 - 200 mg PO DAILY esomeprazole magnesium [Nexium] 20 mg Capsule,Delayed Release(Dr/Ec) 20 mg PO DAILY cholecalciferol (vitamin D3) [Vitamin D3] 25 mcg (1,000 unit) Tablet 50 mcg PO DAILY levocetirizine [Xyzal] 5 mg Tablet 5 mg PO PM Spiriva Respimat 2.5 mcg/actuation mist 2 puff INHALATION DAILY Macular Health Formula 5-1-7.5 mg Capsule 1 cap PO DAILY Discharge Orders: Discharge Order (Routine); Ordered 09/06/23 Ordered By: Brad Kim Admission Data Admit Date/Time: 09/04/23 23:20 Attending Provider: Brad Kim Admit Provider: Jose Carlos Morales Primary Care Provider: Fortino Plunkett Other Providers: Jose Carlos Morales
[2023-09-06] MEDS ORDERED: ALBUT/IPRATROP 3MG/0.5MG NEB 3 ML VIAL NEB SCH (19:00)
== END 2023-09-06 18:06 | disposition home or self-care (01) | DRG 202 ==
LOC: ED 18:10 → 2N 23:20